=== PATIENT | male | born 1955 | race Caucasian/White ===

== ENCOUNTER 2018-04-29 14:33 | Inpatient (IN) | payer OTHER ==
[~2018-04-29] VITALS: Ht 188 cm; Wt 226.8 kg
[2018-04-29 14:36] VITALS: BP 121/78
[2018-04-29] MEDS ORDERED: LANTUS SOL100 UNIT/1 SUBQ (14:41)
[2018-04-29] MEDS ORDERED: CLARITIN10 MG PO (14:42)
[2018-04-29] MEDS ORDERED: LIPITOR10 MG PO (14:43)
[2018-04-29] MEDS ORDERED: CELEXA40 MG PO (14:44)
[2018-04-29] MEDS ORDERED: COREG25 MG PO (14:44)
[2018-04-29] MEDS ORDERED: CARDIZEM CD120 MG PO (14:46)
[2018-04-29] MEDS ORDERED: SANDIMMUNE100 MG PO (14:46)
[2018-04-29] MEDS ORDERED: NEXIUM40 MG PO (14:47)
[2018-04-29] MEDS ORDERED: ELIQUIS2.5 MG PO (14:47)
[2018-04-29] MEDS ORDERED: FLONASE 0.05%50 MCG NASAL (14:48)
[2018-04-29] MEDS ORDERED: NEURONTIN 300300 M1 PO (14:49)
[2018-04-29] MEDS ORDERED: SINGULAIR 10 MG10 M1 PO (14:50)
[2018-04-29] MEDS ORDERED: PREDNISONE 20 M20 MG PO (14:51)
[2018-04-29] MEDS ORDERED: SEREVENT DISKU50 MCG INH (14:52)
[2018-04-29] MEDS ORDERED: SYMBICORT160 MCG/4. INH (14:54)
[2018-04-29] MEDS ORDERED: FLOMAX0.4 MG PO (14:58)
[2018-04-29] MEDS ORDERED: TRAZODONE HCL50 MG PO (14:58)
[2018-04-29] MEDS ORDERED: NORCO 5-325 TA1 EACH PO (14:59)
[2018-04-29 15:11] LABS: ABSOLUTE NEUTROPHILS 7.3 thou/uL (1.4-8.2); BASOPHILS 0.5 % (0.0-2.0); EOSINOPHILS 0.2 % (0.0-3.0); HEMOGLOBIN 8.1 gm/dL (14.0-18.0); LYMPHOCYTES 4.5 % (24.0-44.0); MCH 25.9 pg (26.0-34.0); MCHC 31.2 g/dL (28.0-37.0); MONOCYTES 4.4 % (1.0-8.0); PLATELET COUNT 315 thou/uL (150-400); POLYS 90.4 % (36.0-66.0); RBC 3.13 mil/uL (4.50-6.00); RDW 18.6 % (10.5-14.5); WBC 8.1 thou/uL (4.0-11.0)
[2018-04-29 15:15] LABS: ANION GAP 4 mmol/L (7-16); BUN 15 mg/dL (7-18); CALCIUM 8.6 mg/dL (8.5-10.1); CHLORIDE 106 mmol/L (98-107); CO2 35 mmol/L (21-32); CREATININE 1.2 mg/dL (0.7-1.3); GLUCOSE 101 mg/dL (74-106); POTASSIUM 4.6 mmol/L (3.5-5.1); SODIUM 145 mmol/L (136-145)
[2018-04-29 15:23] LABS: TROPONIN-I <0.06 ng/mL (<0.06)
[2018-04-29 15:25] LABS: HCO3 28.2 mmol/L (22.0-26.0); PCO2 46.2 mmHg (35.0-45.0); PO2 76.6 mmHg (80.0-100.0); pH 7.403 (7.360-7.450); sO2 95.3 % (92.0-98.0)
[2018-04-29 17:35] VITALS: BP 226/85
--- NOTE | 2018-04-29 19:23 | NUR ---
REPORT ATTEMPTED X 2; ADVISED AT 1829 THAT BARIATRIC BED WAS REQUIRED
[2018-04-29 19:52] VITALS: BP 226/85
[2018-04-29 20:26] VITALS: BP 149/54
[2018-04-30 06:04] LABS: ABSOLUTE NEUTROPHILS 5.9 thou/uL (1.4-8.2); BASOPHILS 0.5 % (0.0-2.0); EOSINOPHILS 0.2 % (0.0-3.0); HEMOGLOBIN 7.6 gm/dL (14.0-18.0); LYMPHOCYTES 4.1 % (24.0-44.0); MCH 25.7 pg (26.0-34.0); MCHC 30.3 g/dL (28.0-37.0); MCV 84.7 fL (80.0-100.0); MONOCYTES 3.8 % (1.0-8.0); PLATELET COUNT 263 thou/uL (150-400); POLYS 91.4 % (36.0-66.0); RBC 2.95 mil/uL (4.50-6.00); RDW 18.7 % (10.5-14.5); WBC 6.5 thou/uL (4.0-11.0)
[2018-04-30 06:28] LABS: ALBUMIN 2.2 g/dL (3.4-5.0); ANION GAP 7 mmol/L (7-16); BUN 16 mg/dL (7-18); CALCIUM 8.3 mg/dL (8.5-10.1); CHLORIDE 106 mmol/L (98-107); CO2 34 mmol/L (21-32); CREATININE 1.3 mg/dL (0.7-1.3); GLUCOSE 124 mg/dL (74-106); MAGNESIUM 1.7 mg/dL (1.8-2.4); POTASSIUM 4.6 mmol/L (3.5-5.1); SGOT 14 U/L (15-37); SGPT 14 U/L (30-65); SODIUM 147 mmol/L (136-145); TOTAL BILIRUBIN 0.7 mg/dL (<0.1-1.0); TROPONIN-I <0.06 ng/mL (<0.06)
--- NOTE | 2018-04-30 07:24 | NUR ---
Received pt from ED. Pt has been having SOA for the past four days. Chest xray was done in ED show evidence of HCAP. Pt has morbid obesity. Left hand is limb but he still has sensation. Edema on both low extremities and right hand. Left forearm I.V. AOX4. He has a wound left leg lateral calf. Denies pain. No identified needs at the moment. Will continue to monitor.
[2018-04-30 07:41] LABS: HCO3 32.1 mmol/L (22.0-26.0); PCO2 56.1 mmHg (35.0-45.0); PO2 67.4 mmHg (80.0-100.0); pH 7.376 (7.360-7.450); sO2 92.6 % (92.0-98.0)
--- NOTE | 2018-04-30 07:54 | EKG ---
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 04/30/18 0753 1511 1511 Ignacio Cruz MD, FACC /EPI
--- NOTE | 2018-04-30 08:20 | NUR ---
cm consulted for dcp, cm visited with pt at bedside. he is a & o x 3, and able to make his needs know. education on transition of care, home health and post acute. " i am in rehab on [address], used to be called something else, been there for month. i was in [facility] for month, before that live with sister at home, need some assistance with dressing from my sister. use o2 at home and bipap. unable to shower, have to take sponge baths. no hh in past. currently in rehab now, have to be able to use my right arm before i can go back home."/thanh. pt in post acute at [facility] teresa bills. will cont following as needed for dc needs, pt anticipate going back to cont rehab.
[2018-04-30 09:03] LABS: % SATURATION 18 % (20-39); IRON 41 ug/dL (65-175); TIBC 229 ug/dL (250-450)
[2018-04-30 09:15] VITALS: BP 146/84
--- NOTE | 2018-04-30 13:14 | EKG ---
[address] [address] ELECTROCARDIOGRAM REPORT Name: DEX BLACK Room #: 455-P ADM IN M.R.#: [id number] Admission: 04/29/18 Attend Phys: Matthew Costa MD Discharge: Date of : 55 Report #: [id number] THIS REPORT FOR: //name// [facility] Test Date: 2018-04-30 Test Time: 07:52:40 Pat Name: DEX BLACK Department: Room: 455 P Gender: M Strategic Planning Analyst: EBONY : 1955 Requested By: Matthew Costa Order Number: [id number] MD: Trenton Moulton Measurements Intervals [place] Rate: 80 P: [place]: QRS: -68 QRSD: 110 T: 31 QT: 400 QTc: 462 Interpretive Statements Atrial fibrillation LAD, consider left anterior fascicular block Low voltage, precordial leads Abnormal R-wave progression, late transition Nonspecific T abnormalities, anterior leads No previous ECG available for comparison Electronically Signed On 04-30-2018 13:14:23 PLATEN BUILDER UP by Trenton Moulton [email or web address] <ELECTRONICALLY SIGNED> By: Trenton Moulton MD 04/30/18 1314 0752 0752 Trenton Moulton MD /EPI
--- NOTE | 2018-04-30 14:39 | 2DMMODE ---
[facility] [address] [place] [address] 2 D/M-MODE ECHOCARDIOGRAM Name: DEX BLACK Room #: 455-P ADM IN M.R.#: [id number] Admission: 04/29/18 Attend Phys: Matthew Costa MD Discharge: Date of : 55 Date of Service: 04/30/18 1438 Report #: [id number] THIS REPORT FOR: //name// APPROVED REPORT Study performed: 04/30/2018 11:31:44 EXAM: Comprehensive 2D, Doppler, and color-flow Echocardiogram Patient Location: Bedside Room #: [facility] Status: routine BSA: 3.21 HR: 87 bpm BP: 146/84 mmHg Rhythm: Atrial Fibrillation Other Information Study Quality: Fair Indications COPD CVA/TIA Diabetes Atrial Fibrillation Hypertension/HDD Echo Enhancing Agent Indication: Rule out shunt, Endocardial border delineation Agent(s) / Amount(s) Used: Agitated Saline 7 cc Optison 4 cc 2D Dimensions IVSd: 14.80 (7-11mm) LVOT Diam: 22.95 (18-24mm) LVDd: 60.02 mm PWd: 14.06 (7-11mm) Ascending Ao: 32.76 (22-36mm) LVDs: 40.67 (25-40mm) Aortic Root: 31.79 mm IVC: 35.00 mm Aortic Valve AoV Peak Robby.: 1.30 m/s AO Peak Gr.: 6.80 mmHg LVOT Max P.41 mmHg LVOT Max V: 1.05 m/s WESLEY Vmax: 3.33 cm2 Pulmonary Valve [facility] [address] [place] [address] 2 D/M-MODE ECHOCARDIOGRAM Name: DEX BLACK Room #: 455-P ADM IN .Jennifer.#: [id number] Admission: 04/29/18 Attend Phys: Matthew Costa MD Discharge: Date of : 55 Date of Service: 04/30/18 1438 Report #: [id number] PV Peak Robby.: 1.23 m/s PV Peak Gr.: 6.05 mmHg Tricuspid Valve TR Peak Robby.: 2.81 m/s TR Peak Gr.: 31.51 mmHg PA Pressure: 42.00 mmHg Left Ventricle Left ventricle is dilated. There is normal LV segmental wall motion. Moderate concentric left ventricular hypertrophy. The left ventricular systolic function is normal. The left ventricular ejection fraction is within the normal range. LVEF is 55-60%. This study is not technically sufficient to allow evaluation of the LV diastolic function due to atrial fibrillation. Right Ventricle The right ventricle is normal size. The right ventricular systolic function is normal. Atria Left atrium is dilated. Right atrium is dilated. Aortic Valve The aortic valve is not well visualized. No aortic regurgitation is present. There is no aortic valvular stenosis. Mitral Valve The mitral valve is normal in structure. Trace mitral regurgitation. No evidence of mitral valve stenosis. Tricuspid Valve The tricuspid valve is normal in structure. There is trace tricuspid regurgitation. Estimated PAP 42 mmHg. There is moderate pulmonary hypertension. Pulmonic Valve The pulmonary valve is normal in structure. There is no pulmonic valvular regurgitation. Great Vessels The aortic root is normal in size. IVC is dilated and collapses >50% with inspiration. Pericardium There is no pericardial effusion. [facility] [place] [place] [address] 2 D/M-MODE ECHOCARDIOGRAM Name: DEX BLACK Room #: 455-P ADM IN M.R.#: [id number] Admission: 04/29/18 Attend Phys: Matthew Costa MD Discharge: Date of : 55 Date of Service: 04/30/18 143 Report #: [id number] <Conclusion> The left ventricular systolic function is normal. There is normal LV segmental wall motion. Both atria are mildly dilated. The aortic valve is not well visualized. No aortic regurgitation or stenosis. The mitral valve is normal in structure. Trace mitral regurgitation. There is trace tricuspid regurgitation. Estimated pulmonary artery pressure of 42 mmHg. There is no pericardial effusion. <ELECTRONICALLY SIGNED> By: Ignacio Cruz MD, [facility] 04/30/18 1438 1438 1438 Ignacio Cruz MD, FACC /INF
[2018-04-30 14:59] VITALS: BP 141/71
--- NOTE | 2018-04-30 15:16 | NUR ---
ASSUMED CARE AT 0700. AXOX4. CALLS APPROPIRATELY. R SIDED FLACCID PRIOR TO HOSPITALIZATION. SEEN BY WOUND CARE, SEEN BY CARDIOLOGY. SEEN BY HOSPITALIST GROUP. NEW ORDERS NOTED AND CARRIED OUT. SENT MEDICAL RECORDS REQUEST TO [facility]. NO S/S ACUTE DISTRESS NOTED OR REPORTED AT THIS TIME. WILL CONT TO MONITOR FOR ANY CHANGES IN CONDITION.
--- NOTE | 2018-04-30 15:24 | NUR ---
WOUND CONSULT: PT. WAS SEEN TODAY BY DR. MAGALLON AND MYSELF. PT. HAS HEMOTOMAS TO BOTH HIS LEFT AND RIGHT LATERAL LEGS. THE LEFT LEG WAS OPEN UPON EXAMINATION BUT, DR. MAGALLON PREFORMED A I&D TO THE RIGHT LEG TODAY AT BEDSIDE. PT. TOLERATED WELL. PT. HAS HYPERKARITOSIS TO HIS PANNUS ALONG WITH BLISTERS TO HIS RIGHT HAND. RECOMMENDATIONS: SEE PLAN OF CARE. PT. AND STAFF NURSE WERE INSTRUCTED ON PLAN OF CARE.
--- NOTE | 2018-04-30 19:27 | D ---
[facility] [place] [place] [address] DISCHARGE SUMMARY Name: DEX BLACK Room #: 455-P ADM IN M.R.#: [id number] Admission: 04/29/18 Attend Phys: Matthew Costa MD Discharge: Date of : 55 Report #: [id number] THIS REPORT FOR: //name// CC: Matthew Ha REFERRING PHYSICIAN: Dr. Costa. REASON FOR REFERRAL: Dyspnea and pneumonia. HISTORY OF PRESENT ILLNESS: The patient is a 62-year-old white male who presented to the Emergency Room with progressive dyspnea. A pulmonary consultation was requested. The patient has been residing in a facility since January. He has sleep apnea along with morbid obesity and COPD. He has been weak for the last several months. He has a history of CVA with the resultant right-sided weakness. He was in his usual state of health until about 4-5 days prior to presentation he started to notice increasing dyspnea. Chest x-ray suggests mild right lower lobe infiltrates. Lung volumes are normal with cardiomegaly. Otherwise, he denies any fever, chest pain, productive cough, or hemoptysis. PAST MEDICAL HISTORY: As mentioned above, [place], on home CPAP, COPD, hypertension, morbid obesity, history of heart failure. He has been previously hospitalized at [facility], [place], and [facility]. He was hospitalized at [facility] around January of last year with respiratory failure on mechanical ventilation. Psoriasis, gastroesophageal reflux, atrial fibrillation, on anticoagulation. PAST SURGICAL HISTORY: As mentioned above. Otherwise, unremarkable. ALLERGIES: SULFA AND TRIMETHOPRIM, REACTIONS NOT SPECIFIED. MEDICATIONS: List reviewed, which includes Lantus, Claritin, Lipitor, Coreg, Celexa, Sandimmune, Cardizem, Eliquis, Nexium, Flonase, Neurontin, Singulair, prednisone 20 mg once a day, Serevent, Symbicort, Flomax, Desyrel and [place]. FAMILY HISTORY: Noncontributory. SOCIAL HISTORY: The patient has smoked for about 40 years, quit smoking more than a year ago. He drinks socially. He is . REVIEW OF SYSTEMS: As mentioned above. Notable for severe medical illness since January last year resulting in profound weakness. Otherwise, 10-point system review negative. [facility] [address] [place] [address] DISCHARGE SUMMARY Name: DEX BLACK Room #: 455-P [facility] IN M.R.#: [id number] Admission: 04/29/18 Attend Phys: Matthew Costa MD Discharge: Date of : 55 Report #: [id number] PHYSICAL EXAMINATION: GENERAL: Awake, alert, in no distress. VITAL SIGNS: Temperature is 98.5 degrees Fahrenheit, pulse is 88, respiratory rate is 20, blood pressure 146/84 mmHg, saturation 95%. HEENT: Normocephalic, atraumatic. NECK: Supple, without lymphadenopathy or thyromegaly. CHEST: Breath sounds are distant. No obvious wheezes or rales. CARDIOVASCULAR: Heart sounds are distant. No obvious murmurs or gallop. It is irregular. ABDOMEN: Obese, soft, nontender, no organomegaly or masses felt. GENITOURINARY: Deferred. RECTAL: Deferred. EXTREMITIES: 1-2+ bilateral pretibial edema with stasis dermatitis changes involving both lower extremities. NEUROLOGIC: He is awake, alert. LABORATORY DATA: Portable chest x-ray shows small lung volumes, mild right lower lobe infiltrates, cardiomegaly. The chest x-ray technique is also rotated. BNP is 8100. D-dimer is 1.8. Influenza A and B is negative. Procalcitonin level is 0.05. Echocardiogram shows normal LV function, no significant valvular heart disease, pulmonary pressure measuring 42 mmHg. Electrolytes: Sodium 147, potassium 4.6, chloride 106, CO2 of 34, BUN is 16, creatinine is 1.3. Liver enzymes are mildly abnormal. WBC is 6500, hemoglobin 7.6, platelets are normal. Albumin 2.2. Atrial blood gas revealed pH 7.37, pCO2 of 56, pO2 of 64 on 4 liters of O2. IMPRESSION: 1. Addzi-rf-jcijbuz hypercapnic hypoxic respiratory failure in this 62-year-old morbidly obese white male. Chest x-ray shows possible right lower lobe infiltrates. Pneumonia is suspected. We will need to consider nosocomial infections. He also has a history of chronic obstructive pulmonary disease along with sleep apnea, which are likely contributing to his symptoms. 2. Chronic obstructive pulmonary disease without obvious exacerbation. Continue bronchodilators. 3. Obstructive sleep apnea, on home CPAP. With presence of chronic hypercapnia, along with his morbid obesity, obesity hypoventilation is likely. Continue home CPAP. 4. Acute on chronic diastolic heart failure. 5. Morbid obesity. 6. Diabetes mellitus type 2. 7. Hypertension. 8. Peripheral neuropathy. 9. Depression. 10. Gastroesophageal reflux disease. 11. Anemia, normocytic, normochromic. No obvious source of bleeding. Likely [facility] [address] [place] [address] DISCHARGE SUMMARY Name: DEX BLACK Room #: 455-P ADM IN Roni.#: [id number] Admission: 04/29/18 Attend Phys: Matthew Costa MD Discharge: Date of : 55 Report #: [id number] due to chronic disease. 12. Atrial fibrillation, permanent, on chronic anticoagulation. RECOMMENDATION: Agree with broad spectrum antibiotics to cover for nosocomial infections. DVT and GI prophylaxis is recommended. We will recommend resuming home CPAP. I agree with diuresis. I strongly recommend if the patient is able to consider dietary modification, which would have great impact on the patient's overall health status. This was discussed in detail with the patient and his family. Thank you for this consultation. <ELECTRONICALLY SIGNED> By: Fernando Paulson MD 04/30/18 1927 1723 1747 Fernando Paulson MD /nt
[2018-04-30 20:08] VITALS: BP 155/83
[2018-05-01 03:46] VITALS: BP 154/78
[2018-05-01 05:42] LABS: HEMATOCRIT 23.6 % (42.0-52.0); HEMOGLOBIN 7.2 gm/dL (14.0-18.0)
[2018-05-01 05:50] LABS: CALCIUM 7.9 mg/dL (8.5-10.1); CREATININE 1.6 mg/dL (0.7-1.3); POTASSIUM 3.9 mmol/L (3.5-5.1)
--- NOTE | 2018-05-01 08:13 | EKG ---
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 <ELECTRONICALLY SIGNED> By: Trenton Moulton MD 05/01/18811 2 2 Trenton Moulton MD /EPI
[2018-05-01 09:07] VITALS: BP 186/69
[2018-05-01 11:24] LABS: FOLIC ACID 7.5 ng/mL (8.6-58.9); TSH 0.216 uIU/mL (0.358-3.740)
--- NOTE | 2018-05-01 14:09 | NUR ---
WOUND FOLLOW UP: PT. WAS SEEN TODAY BY DR. MAGALLON AND MYSELF. PT. WOUNDS ARE STABLE TODAY. HEMOTOMAS ARE DRAINAING WELL AND BLISTERS ARE RESOLVING. RECOMMENDATIONS: CONTINUE WITH CURRENT PLAN OF CARE. PT. AND STAFF NURSE WERE INSTRUCTED ON PLAN OF CARE.
[2018-05-01 16:04] VITALS: BP 135/66
--- NOTE | 2018-05-01 19:50 | NUR ---
PT A/OX4, COMPLIANT WITH CARES, REQUIES MAX ASSIST OF 2-3 FOR POSTIONAL CHANGE AND INCONTINENET EPISODES. CALLS APPROPRIATELY. CALL LIGHT IN REACH
[2018-05-01 20:02] VITALS: BP 143/62
--- NOTE | 2018-05-02 03:44 | NUR ---
ASSUMED CARE AT START OF SHIFT PT RESTING IN BED, REPOSITIONING EVERY 2 HOURS, CALLING TO USE URINAL WHEN NEEDED. RIGHT ARM SWOLLEN ELEVATED ON PILLOW. DISCUSSED PLAN OF CARE , VERBALIZED UNDERSTANDIG AND AGREEABLE. CONSULTING IT ARCHITECT SHOWS AFIB.
[2018-05-02 05:02] VITALS: BP 185/96
[2018-05-02 06:10] LABS: HEMATOCRIT 24.4 % (42.0-52.0); HEMOGLOBIN 7.4 gm/dL (14.0-18.0); MCH 25.4 pg (26.0-34.0); MCHC 30.4 g/dL (28.0-37.0); MCV 83.5 fL (80.0-100.0); RBC 2.92 mil/uL (4.50-6.00); RDW 18.7 % (10.5-14.5); WBC 4.5 thou/uL (4.0-11.0)
[2018-05-02 06:22] LABS: CALCIUM 7.9 mg/dL (8.5-10.1); CREATININE 1.7 mg/dL (0.7-1.3); POTASSIUM 3.8 mmol/L (3.5-5.1)
[2018-05-02 06:23] VITALS: BP 147/70
[2018-05-02 07:36] VITALS: BP 149/89
[2018-05-02 14:50] VITALS: BP 155/83
--- NOTE | 2018-05-02 15:02 | NUR ---
ASSUMED CARE AT 0700. AXOX4. CALLS APPROPRIATELY. ID SEEN PT. WOUND CARE RENDERED AT BEDSIDE IN AM. TOLERATED WELL. STILL ON IV ATB ZOSYN. BLE WOUNDS. PAIN MANAGED WITH NORCO. NO COMPLAINT AT THIS TIME. DENIES CHEST PAIN, SOB. SOA OR SEVERE PAIN. PER GI, WILL HAVE GI PROCEDURES TOMORROW AM AND PT WILL BE NPO AFTER MIDNIGHT. NO S/S ACUTE DISTRESS NOTED OR REPORTED AT THIS TIME. THIS AM, PT WAS ABLE TO URINATE IN URINAL. WILL CONT TO MONITOR FOR ANY CHANGES IN CONDITION.
--- NOTE | 2018-05-02 15:19 | NUR ---
WOUND FOLLOW UP: PT. WAS SEEN TODAY BY DR. MAGALLON AND MYSELF. PT. WOUNDS ARE STABLE AT THIS TIME. PT. WILL BE STARTED ON PULSE LAVAGE FOR THE HEMOTOMA TO THE LEFT LEG. RECOMMENDATIONS: CONTINUE WITH CURRENT PLAN OF CARE. PT. AND STAFF NURSE WERE INSTRUCTED ON PLAN OF CARE.
[2018-05-02 19:06] VITALS: BP 141/78
[2018-05-02 19:57] VITALS: BP 141/78
--- NOTE | 2018-05-02 21:39 | NUR ---
Assumed care at 1845. Pt resting in bed. Did dressing changes on both legs. Pt complaining of left leg pain. Gave him hydrocodone. Call light within reach. Bed in lowest position. Will continue to monitor.
[2018-05-03 03:07] VITALS: BP 154/71
[2018-05-03 06:50] LABS: CALCIUM 7.7 mg/dL (8.5-10.1); CREATININE 1.8 mg/dL (0.7-1.3); POTASSIUM 3.8 mmol/L (3.5-5.1)
[2018-05-03 08:00] VITALS: BP 153/87
--- NOTE | 2018-05-03 08:03 | EKG ---
[address] [address] ELECTROCARDIOGRAM REPORT Name: DEX BLACK Room #: 455-P ADM IN M.R.#: [id number] Admission: 04/29/18 Attend Phys: Matthew Costa MD Discharge: Date of : 55 Report #: [id number] THIS REPORT FOR: //name// [facility] Test Date: 2018-05-03 Test Time: 06:20:38 Pat Name: DEX BLACK Department: Room: 455 P Gender: M Relations Coordinator: EBONY : 1955 Requested By: Ignacio Cruz Order Number: [id number] MD: Trenton Moulton Measurements Intervals [place] Rate: 75 P: [place]: QRS: -72 QRSD: 105 T: 57 QT: 468 QTc: 523 Interpretive Statements Atrial fibrillation LAD, consider left anterior fascicular block Abnormal R-wave progression, late transition Nonspecific T abnrm, anterolateral leads Compared to ECG 05/01/2018 08:03:32 T-wave abnormality no longer present Electronically Signed On 05-03-2018 8:02:57 PRECISION INSTRUMENT MAKER by Trenton Moulton [email or web address] <ELECTRONICALLY SIGNED> By: Trenton Moulton MD 05/03/1802 9 9 Trenton Moulton MD /EPI
[2018-05-03 08:12] LABS: ADENOVIRUS Negative (Negative); INFLUENZA A Negative (Negative); INFLUENZA B Negative (Negative); METAPNEUMOVIRUS Negative (Negative); PARAINFLUENZA 1 Negative (Negative); PARAINFLUENZA 2 Negative (Negative); PARAINFLUENZA 3 Negative (Negative); RHINOVIRUS Negative (Negative); RSV A Negative (Negative); RSV B Negative (Negative)
--- NOTE | 2018-05-03 11:51 | NUR ---
DISCHARGE PLANNING. ANTICIPATED DISCHARGE OVER THE WEEKEND. PATIENT RESIDES AT [facility]. PLAN IS FOR PATIENT TO RETURN TO [facility] ONCE MEDICALLY READY. CLINICAL INFORMATION FAXED TO [facility], [facility] ADMISSIONS, VERIFIED RECEIVED. CALL PLACED TO [facility] TO NOTIFY OF ANTICIPATED DISCHARGE OVER THE WEEKEND. SHOULD PATIENT DISCHARGE OVER THE WEEKEND PLEASE CONTACT [facility] AT [phone] TO FACILITATE DISCHARGE TRANSPORTATION. PLEASE FAX DISCHARGE ORDERS TO FACILITY AT [phone]. FACILITY CONTACT NUMBER IS [phone]. [facility] CONTACT NUMBER IS [phone] [facility] FAX NUMBER FOR ORDERS IS [phone] [facility] CONTACT NUMBER [phone]
--- NOTE | 2018-05-03 13:35 | NUR ---
WOUND FOLLOW UP: PT. WAS SEEN TODAY BY DR. MAGALLON AND MYSELF. PT. WOUND'S ARE RESPONDING WELL TO CURRENT THERAPY. RECOMMENDATIONS: CONTINUE WITH CURRENT PLAN OF CARE. PT. AND STAFF NURSE WERE INSTRUCTED ON PLAN OF CARE.
[2018-05-03 16:00] VITALS: BP 153/74
--- NOTE | 2018-05-03 18:12 | NUR ---
ASSUMED CARE OF PT 0700.A/OX4, PAIN MANAGED WITH MEDICATION, NO BARIUM SWALLOW OR UPPER GI DONE TODAY - GI PHYSICIAN REVIEW GI PLANS, WOUND CARES COMPLETED. BM TODAY. PT REQUIRES MAX ASSIST AND 3-4 PERSON FOR REPOSITONING AND CARES. CALLS APPORPRIATELY. CALL LIGHT IN REACH.
--- NOTE | 2018-05-03 18:29 | NUR ---
ASSUMED CARE OF PT AT 0700. PAIN MANAGED WITH MEDICATIONS, WOUNDS CARE GIVEN, BM TODAY. REQUIES MAX ASSIST OF 3-4 FOR CARES. NO BARRIUM SWALLOW OR SCOPE, PHYSICIAN FROM GI CONSULTED WITH PT REGARDING GI PLANS. CALLS APPROPRIATELY.,
--- NOTE | 2018-05-03 18:30 | P ---
[facility] [place] [address] [place] [address] PROCEDURE REPORT Name: DEX BLACK Room #: 455-P ADM IN M.R.#: [id number] Admission: 04/29/18 Attend Phys: Matthew Costa MD Discharge: Date of : 55 Report #: [id number] THIS REPORT FOR: //name// CC: Matthew Costa Robinson Akkulugari DATE OF SERVICE: 04/30/2018 PROCEDURE PERFORMED: Incision and drainage and evacuation of subcutaneous abscess, right leg. PREPROCEDURE DIAGNOSIS: Subcutaneous hematoma, right leg. POSTPROCEDURE DIAGNOSIS: Subcutaneous hematoma, right leg. PROCEDURE PERFORMED: Incision and drainage of hematoma. DESCRIPTION OF PROCEDURE: The patient has given verbal consent at the bedside. stayed at the bedside the whole time. I have identified the site with the patient. Time-out was taken. Following this, the area was prepped and draped in usual sterile fashion, anesthetized with 1% lidocaine with epinephrine. Once adequate anesthesia was achieved, a #15 bladed scalpel was used to incise across the hematoma and a moderate amount of retained hematoma was evacuated. Estimated blood loss approximately 3 mL. Pain associated with procedure would be 1 on a scale of 1-10. The patient tolerated the procedure well with no complications. Wound was packed with iodoform gauze and dressed with Kerlix and Juan Luis wrap. <ELECTRONICALLY SIGNED> By: Sylvester Peters MD 05/03/18 1830 1530 1824 Sylvester Peters MD /genevieve
--- NOTE | 2018-05-03 18:30 | HC ---
[facility] [place] [address] CONSULTATION Name: DEX BLACK Room #: 455-P ADM IN M.R.#: [id number] Admission: 04/29/18 Attend Phys: Matthew Costa MD Discharge: Date of : 55 Report #: [id number] THIS REPORT FOR: //name// CC: Matthew Luongyam Akkulugari DATE OF SERVICE: 04/30/2018 CHIEF COMPLAINT: Wounds to the lower extremities. HISTORY OF PRESENT ILLNESS: This is a 62-year-old white male patient with a history of morbid obesity, who was admitted to the hospital with the chief complaint of shortness of breath. He was felt to have acute on chronic diastolic heart failure and a lower respiratory tract infection. He was noted to have redness and some drainage from his lower extremities. He apparently has had a subcutaneous hematoma involving his left leg and may have had an incision and drainage procedure. It is very much unclear as to when he may have developed a hematoma and when or where the incision and drainage procedure was performed. The patient denies significant pain associated with that, but states he is very short of breath when changing positions in bed. PAST MEDICAL HISTORY: Per his medical record, history of permanent atrial fibrillation, morbid obesity, hypertension, dyslipidemia, diabetes mellitus, psoriasis, and an oxygen dependent lung disease. SOCIAL HISTORY: The patient is a [id number]-rimx smoker. He does not smoke currently. Denies significant alcohol use. FAMILY HISTORY: Positive for heart failure in his mother. ALLERGIES: BACTRIM. MEDICATIONS: Include Lantus insulin, atorvastatin, carvedilol, citalopram, Sandimmune, diltiazem, apixaban, Nexium, prednisone, Serevent Diskus, Symbicort, Flomax. REVIEW OF SYSTEMS: CONSTITUTIONAL: The patient denies fever, chills, or weight loss. NEUROLOGICAL: The patient does have focal weakness of his right arm from the elbow to the wrist and hand area. He states this developed 1 month ago after supposedly having a stroke. EYES: The patient denies visual changes, redness or drainage. ENT: The patient denies earache, nasal drainage, or sore throat. CARDIOVASCULAR: The patient denies chest pain, palpitation, or diaphoresis. PULMONARY: The patient does complain of shortness of breath and some cough. Denies hemoptysis. [address] [place] [address] CONSULTATION Name: DEX BLACK Room #: 455-P ADM IN M.R.#: [id number] Admission: 04/29/18 Attend Phys: Matthew Costa MD Discharge: Date of : 55 Report #: [id number] GASTROINTESTINAL: The patient denies nausea, vomiting, diarrhea or abdominal pain. ORTHOPEDIC: The patient complains of pain and swelling of both lower extremities. Other systems in a 14-point review of systems are negative. PHYSICAL EXAMINATION: VITAL SIGNS: At this time include pulse rate of 82, respiratory rate of 18, blood pressure 141/71, temperature 98.5. GENERAL: This is a morbidly obese male patient who appears to be short of breath. No other distress. HEENT: Head normocephalic. Nose and throat are clear. NECK: Supple. LUNGS: Diminished. HEART: Irregular without obvious murmur. Heart sounds are a bit distant. ABDOMEN: Morbidly obese. There is a significant pannus with some hyperkeratosis noted, but no open ulceration. GENITOURINARY: Shows some scrotal edema. No erythema or evidence of breakdown. EXTREMITIES: Lower extremities demonstrate palpable, but diminished distal pulses. He has a large what appears to be surgical wound of the left lower leg that appears to have been a large hematoma that was incised and drained. There is still a large amount of retained clot that I have removed manually. There is also a small subcutaneous hematoma to the right lower leg. I have performed an incision and drainage procedure at the bedside with the patient's verbal permission. Please see separate procedure note for those details. NEUROLOGIC: The patient is alert, does move all 4 extremities. He does not have use of his right hand and forearm. LABORATORY DATA: Sodium 147, potassium 4.6, chloride 106, CO2 34, BUN 16, creatinine 1.3, glucose 124. Albumin is 2.2, total protein 6.0. ProBNP is 7079. White blood cell count of 6.5 with hemoglobin of 7.6, hematocrit 25.0. Arterial blood gas, pH 7.37, pCO2 56, pO2 of 67. CLINICAL IMPRESSION: 1. Subcutaneous hematomas, bilateral lower extremities, left greater than right. 2. Incision and drainage of right leg subcutaneous hematoma performed at bedside today. 3. Super morbid obesity. 4. Permanent atrial fibrillation. 5. Dyslipidemia. 6. Diabetes mellitus. 7. Oxygen dependent lung disease, severe obstructive sleep apnea, on BiPAP. RECOMMENDATIONS: At this point in time, we will look for additional records from [facility] and possibly from [facility]. We will recommend a [facility] [address] [place] [address] CONSULTATION Name: DEX BLACK Room #: 455-P ADM IN M.Jennifer.#: [id number] Admission: 04/29/18 Attend Phys: Matthew Costa MD Discharge: Date of : 55 Report #: [id number] saline moist gauze dressing to the left leg twice daily in order to better remove the remaining retained hematoma. We could consider a possible wound VAC down the line to help with closure of this very large tissue defect. The right leg, we will pack with iodoform gauze to be changed once daily. We will recommend a bariatric low air loss mattress. He will need q. 2 hours turning and repositioning. Recommend prophylactic use of a moisture barrier cream to the sacral gluteal region. All questions have been answered. The patient is agreeable with current plan of care. I appreciate being asked to see him in consultation. <ELECTRONICALLY SIGNED> By: Sylvester Peters MD 05/03/18 1830 1525 1818 Sylvester Peters MD /nt
--- NOTE | 2018-05-04 03:13 | NUR ---
PT UP MOST OF THE NIGHT PT AMBULATED HALLWAYS FOR 10 MIN PT USED CALL LIGHT EFFECTIVELY NO ISSUES OVERNIGHT.
--- NOTE | 2018-05-04 03:15 | NUR ---
PT SLEPT ON AND OFF PT USED CALL LIGHT EFFECTIVELY VITAL SIGNS STABLE PT USED CALL LIGHT EFFECTIVELY.
[2018-05-04 04:45] LABS: HEMATOCRIT 26.1 % (42.0-52.0); HEMOGLOBIN 8.1 gm/dL (14.0-18.0); MCH 25.9 pg (26.0-34.0); MCHC 30.9 g/dL (28.0-37.0); MCV 83.9 fL (80.0-100.0); RBC 3.11 mil/uL (4.50-6.00); RDW 18.3 % (10.5-14.5); WBC 6.6 thou/uL (4.0-11.0)
[2018-05-04 05:13] VITALS: BP 165/84
[2018-05-04 07:23] VITALS: BP 123/66
--- NOTE | 2018-05-04 16:35 | NUR ---
A/OX4, PAIN AND NAUSEA MANAGED WITH MEDICATIONS, EXTERNAL CATHETER FOR INCONTINENCE, MAX ASSIST OF 4 REPOSTIONING. UNTILIZED SECURITY ASSIST REPOSTIONING. WOUND CARE PROVIDED. ABLE TO MAKE NEEDS KNOWN. CALL LIGHT IN REACH.
[2018-05-04 17:18] VITALS: BP 148/65
[2018-05-04 19:10] VITALS: BP 155/87
[2018-05-05 03:56] VITALS: BP 134/79
[2018-05-05 08:00] VITALS: BP 150/72
[2018-05-05 12:09] VITALS: BP 140/75
--- NOTE | 2018-05-05 17:13 | NUR ---
ASSUMED CARE OF PT @ 0700. A&O X4. Pleasant & Cooperative. O2 @ 4L NC maintained. Telementry maintained. Wound care provided. Turned Q 2hrs or more frequently with max assist of 4 for repositioning. External male catheter placed d/t frequent incontinence, however; was not able to be maintained and removed. notified. Freq. pericare completed to help maintain skin integrity Pt. able to make needs known. Call light in reach. Will continue to monitor pt. throughout shift (1899).
[2018-05-05 19:19] VITALS: BP 148/75
[2018-05-06 03:47] VITALS: BP 150/81
[2018-05-06 08:15] VITALS: BP 147/48
--- NOTE | 2018-05-06 11:05 | NUR ---
TOWARDS POC PT A/O X4, VSS, AFEBRILE. PAIN NOTED ON BLE MANEGD BY POSITIONING. NO CONCERNS VOICED AT THIS TIME. WILL CONTINUE TO MONITOR.
[2018-05-06 15:39] VITALS: BP 128/76
--- NOTE | 2018-05-06 17:13 | NUR ---
CARE TEAM IS INDICATING POSSIBLE DISCHARGE BACK TO [facility] TOMORROW. CM TO FOLLOW INDICATED WITH DC PLANNING.
[2018-05-06 19:54] VITALS: BP 174/72
[2018-05-07 03:00] VITALS: BP 142/65
--- NOTE | 2018-05-07 04:00 | NUR ---
Pt. rested quietly at intervals during the night when checked on during frequent rounds. He offers no c/o pain. Incontinent of urine and barbara care given.
[2018-05-07 07:48] VITALS: BP 135/68
--- NOTE | 2018-05-07 10:31 | NUR ---
dp faxed updates to [facility], patient will dc today, dp will watch for dc papers. DP sent text to [facility] to let them know to expect paperwork and of anticipated dc today.
--- NOTE | 2018-05-07 13:54 | NUR ---
Nutrition: pt admitted with HCAP and seen due to LOS and BMI 64, extreme class 3 obesity. Hyperglycemia with BG 310-[address] follows for mild dysphagia not requiring modified consistency diet. Pt eats well on regular diet, standard meals. Will add carb controlled-discussed with pt. Pt will D[facility] back [facility] soon. Place as low risk.
[2018-05-07 14:05] VITALS: BP 116/60
--- NOTE | 2018-05-07 14:06 | NUR ---
WOUND FOLLOW UP: PT. WAS SEEN TODAY BY DR. MAGALLON AND MYSELF. PT. WOUNDS ARE HEALING WELL. RECOMMENDATIONS: CONTINUE WITH CURRENT PLAN OF CARE. PT. AND STAFF NURSE WERE INSTRUCTED ON PLAN OF CARE.
--- NOTE | 2018-05-07 14:59 | NUR ---
CARE TEAM INDICATED THAT PT ISN'T MEDICALLY STABLE TO DISHCARGE TO [facility] TODAY. UPDATES WERE SENT TO THE FACILITY. CM TO FOLLOW INDICATED WITH DC PLANNING.
--- NOTE | 2018-05-07 18:53 | NUR ---
TOWARDS POC PT A/O X4, VSS, AFEBRILE. PT HAD 3 BM. WOUND CARE AND DRESSING DONE. WILL CONTINUE TO MONITOR.
[2018-05-07 19:52] VITALS: BP 134/69
[2018-05-08 03:51] VITALS: BP 130/65
[2018-05-08 05:55] LABS: HEMATOCRIT 27.4 % (42.0-52.0); HEMOGLOBIN 8.6 gm/dL (14.0-18.0); MCH 26.6 pg (26.0-34.0); MCHC 31.4 g/dL (28.0-37.0); MCV 84.7 fL (80.0-100.0); RBC 3.24 mil/uL (4.50-6.00); RDW 18.9 % (10.5-14.5); WBC 10.3 thou/uL (4.0-11.0)
[2018-05-08 06:01] LABS: CALCIUM 7.9 mg/dL (8.5-10.1); CREATININE 2.1 mg/dL (0.7-1.3); POTASSIUM 4.1 mmol/L (3.5-5.1)
[2018-05-08 07:17] VITALS: BP 131/73
--- NOTE | 2018-05-08 07:22 | NUR ---
Received pt. on 4L/NC then he slept well with CPAP on all night.He does get short of breath with exertion. He has been repositioned. Incontinent of bladder and bowel this am. Bilateral arm elevated with pillows. Making progress towards care plan goals.
--- NOTE | 2018-05-08 09:58 | NUR ---
WOUND FOLLOW UP: PT. WAS SEEN TODAY BY DR. PAUL AND MYSELF. PT. WOUNDS ARE RESPONDING WELL TO CURRENT THERAPY. PT. HEMOTOMAS ARE HEALING WELL. RECOMMENDATIONS: CONTINUE WITH CURRENT PLAN OF CARE. PT. AND STAFF NURSE WERE INSTRUCTED ON PLAN OF CARE.
--- NOTE | 2018-05-08 12:14 | NUR ---
A/OX4, PAIN MANAGED WITH MEDICATIONS, WOUND CARE PROVIDED BY [facility], C/O DIFFICULTY TO SWALLOW, NEW ORDERS TO TREAT THRUSH, REQUIRES MAX ASSISTANCE WITH REPOSITIONING. INCONTIENT OF BLADDER/BOWEL. BM 05/07/18 CALLS APPROPRIATELY. PLANS TO DC TODAY OR TOMORROW. CALL LIGHT IN REACH.
[2018-05-08 15:15] VITALS: BP 132/70
--- NOTE | 2018-05-08 16:03 | NUR ---
CARE TEAM IS ANTICIPATING PROBABLE DISCHARGE BACK TO [facility] TOMORROW. DC BOOKMAKER'S CLERK NOTIFIED FACILITY. CM TO FOLLOW INDICATED WITH DC PLANNING.
[2018-05-08 20:43] VITALS: BP 146/62
--- NOTE | 2018-05-09 03:22 | NUR ---
Assumed care at 1845. Pt resting in bed. Denies chest pain. Performed dressing changes on both legs. On 4L NC. Pt is running AFIB w/BBB on Tele. His ACHS. No identified needs at the moment. Will continue to monitor.
[2018-05-09 03:58] VITALS: BP 128/70
[2018-05-09 05:58] LABS: CALCIUM 7.7 mg/dL (8.5-10.1); POTASSIUM 4.4 mmol/L (3.5-5.1)
[2018-05-09 07:30] VITALS: BP 136/64
[2018-05-09 09:06] VITALS: BP 136/64
[2018-05-09] MEDS ORDERED: FLUCONAZOL40 MG/1 ML PO (10:55)
[2018-05-09] MEDS ORDERED: LANTUS100 UNIT/M SUBQ (10:56)
[2018-05-09] MEDS ORDERED: NORCO 5-325 TA1 EACH PO (10:56)
[2018-05-09] MEDS ORDERED: CEFUROXIME500 MG PO (10:57)
--- NOTE | 2018-05-09 11:51 | NUR ---
WOUND FOLLOW UP: PT. WAS SEEN TODAY BY DR. MAGALLON AND MYSELF. PT. WOUNDS ARE CLINICALLY BETTER AT THIS TIME. PT. IS RESPONDING WELL TO CURRENT THERAPY AND PT. IS IN GOOD SPIRITS TODAY. RECOMMENDATIONS: CONTINUE WITH CURRENT PLAN OF CARE. PT. AND STAFF NURSE WERE INSTRUCTED ON PLAN OF CARE.
--- NOTE | 2018-05-09 12:34 | HC ---
[facility] [place] [address] CONSULTATION Name: DEX BLACK Room #: 455-P ADM IN M.R.#: [id number] Admission: 04/29/18 Attend Phys: Matthew Costa MD Discharge: Date of : 55 Report #: [id number] THIS REPORT FOR: //name// CC: Matthew Bowers Akkulugari REASON FOR CONSULTATION: Shortness of breath. HISTORY OF PRESENT ILLNESS: The patient is a 62-year-old gentleman with morbid obesity, COPD and severe sleep apnea. He is on home oxygen. He has history of recurrent pneumonia, permanent atrial fibrillation and diastolic heart failure. Now presents with increasing shortness of breath over the past 3-4 days. Chest x-ray suggested left lower lobe opacities, possibly related to pneumonia. He has had mild lower extremity edema. He has been hospitalized at a variety of hospitals in [facility], most recently at [facility] following which he moved to a rehab center. While at [facility], it sounds as if he had a cardioembolic stroke related to his atrial fibrillation. He has been maintained on Eliquis. He denies chest pain or pressure. He denies a prior myocardial infarction. He had been seeing a payroll and benefits assistant at [facility], but nothing recently. MEDICATIONS: Include insulin, Lantus 60 units daily, atorvastatin 10 mg daily, carvedilol 25 mg twice daily, citalopram 40 mg daily, Sandimmune 200 mg twice daily, diltiazem CD 120 mg daily, apixaban 2.5 mg twice daily, Nexium 40 mg daily, prednisone 20 mg daily, Serevent Diskus, Symbicort inhaler, Flomax 0.4 mg twice daily and hydrocodone. ALLERGIES: Include BACTRIM. PAST MEDICAL HISTORY: His past history and medical records have been reviewed and include a history of permanent atrial fibrillation, morbid obesity, hypertension, dyslipidemia, diabetes, psoriasis for which he takes Sandimmune, oxygen-dependent lung disease. SOCIAL HISTORY: He is a [id number]-jjmq smoker, not currently smoking. FAMILY HISTORY: Notable for mother who had heart failure. REVIEW OF SYSTEMS: All systems negative except as that noted above. PHYSICAL EXAMINATION: GENERAL: Reveals a morbidly obese gentleman who is alert, in no distress. VITAL SIGNS: Blood pressure is 149/54, heart rate of 82 and regular, temperature is 99.0 degrees, 6 feet 2 inches tall, weighs 500 pounds. HEENT: There are neither xanthelasma, subcutaneous xanthomata, oral mucosal or digital cyanosis or kyphoscoliosis present. CHEST: Reveals equal but distant breath sounds. CARDIAC: An irregularly irregular rhythm with normal S1, S2. [facility] [address] [place] [address] CONSULTATION Name: DEX BLACK Room #: 455-P ADM IN M.R.#: [id number] Admission: 04/29/18 Attend Phys: Matthew Costa MD Discharge: Date of : 55 Report #: [id number] ABDOMEN: Soft, obese and nontender. EXTREMITIES: Reveal 1+ pedal edema. Radial pulses are 2+. NEUROLOGIC: He is alert with right-sided upper extremity weakness. LABORATORY DATA: Sodium 147, potassium 4.6, creatinine 1.3. ProBNP of 7079. Troponin 0. Magnesium 1.7. White count 6.5, hemoglobin 7.6, hematocrit 25, platelet count 263. Chest x-ray demonstrates interstitial edema, bilateral lower lobe consolidation. IMPRESSION: 1. Probable nujyi-ew-ktdrrvp diastolic heart failure. 2. Lower respiratory tract infection. 3. Permanent atrial fibrillation. 4. Severe oxygen-dependent lung disease. 5. Probable cardioembolic stroke. 6. Anemia. 7. Diabetes. 8. Dyslipidemia. RECOMMENDATIONS: 1. Gentle diuretic therapy. 2. Echocardiogram with Doppler. 3. Pulmonary and Infectious Disease consultations. Thank you for asking me to participate in the patient's care. <ELECTRONICALLY SIGNED> By: Ignacio Cruz MD, FACC 05/09/18 1234 0900 0955 Ignacio Cruz MD, FACC /nt
--- NOTE | 2018-05-09 14:03 | NUR ---
DISCHARGE ORDERS RECEIVED. PATIENT DISCHARGING TO [facility]. CHART COPIED PER IMMIGRATION PARALEGAL. ORDERS FAXED TO [facility], ADMISSIONS, VERIFIED RECEIVED. [facility] STERILIZATION TECH TO TRANSPORT PATIENT, 1630 HOURS STRETCHER VAN. VOICE AIDE LEFT FOR SISTER IGOR TO NOTIFY. UNIT RN NOTIFIED AND CONTACT NUMBER PROVIDED FOR REPORT. UNIT CM/SW AWARE.
--- NOTE | 2018-05-09 16:49 | NUR ---
DIS PT IS FOR DC'D, TODAY. HEART MONITOR AND IV DC'D. DC ENVELOPE WITH MED SCRIPTS PROVIDED TO THE TRANSPORT. REPORT CALLED APPROPRIATELY.
== END 2018-05-09 17:22 | DRG 291 ==
LOC: ER 14:33 → EROBS 17:16 → 4W 17:16
PROVIDERS: Emergency Medicine; Internal Medicine; Internal Medicine Gastroenterology; Internal Medicine Pulmonary Disease; Nurse Practitioner; Specialist; ADMIT Internal Medicine
DX: I13.0 Hypertensive heart and chronic kidney disease with heart failure and stage 1 through stage 4 chronic kidney disease, or unspecified chronic kidney disease (principal); J18.9 Pneumonia, unspecified organism; J96.21 Acute and chronic respiratory failure with hypoxia; J96.22 Acute and chronic respiratory failure with hypercapnia; E43 Unspecified severe protein-calorie malnutrition; I50.33 Acute on chronic diastolic (congestive) heart failure; D68.59 Other primary thrombophilia; J44.1 Chronic obstructive pulmonary disease with (acute) exacerbation; N17.9 Acute kidney failure, unspecified; Z68.44 Body mass index [BMI] 60.0-69.9, adult; I69.351 Hemiplegia and hemiparesis following cerebral infarction affecting right dominant side; J44.0 Chronic obstructive pulmonary disease with (acute) lower respiratory infection; E66.01 Morbid (severe) obesity due to excess calories; I48.2 Chronic atrial fibrillation; J22 Unspecified acute lower respiratory infection; E78.5 Hyperlipidemia, unspecified; S80.12XA Contusion of left lower leg, initial encounter; S80.11XA Contusion of right lower leg, initial encounter; G47.33 Obstructive sleep apnea (adult) (pediatric); F32.9 Major depressive disorder, single episode, unspecified; E11.42 Type 2 diabetes mellitus with diabetic polyneuropathy; E87.70 Fluid overload, unspecified; I16.0 Hypertensive urgency; K46.9 Unspecified abdominal hernia without obstruction or gangrene; D63.8 Anemia in other chronic diseases classified elsewhere; N18.9 Chronic kidney disease, unspecified; E11.22 Type 2 diabetes mellitus with diabetic chronic kidney disease; B37.9 Candidiasis, unspecified; K21.9 Gastro-esophageal reflux disease without esophagitis; D50.9 Iron deficiency anemia, unspecified; Z83.71 Family history of colonic polyps; Z79.52 Long term (current) use of systemic steroids; Z88.2 Allergy status to sulfonamides; Z88.8 Allergy status to other drugs, medicaments and biological substances; Z82.49 Family history of ischemic heart disease and other diseases of the circulatory system; Z99.81 Dependence on supplemental oxygen; Z79.01 Long term (current) use of anticoagulants; X58.XXXA Exposure to other specified factors, initial encounter; Y93.89 Activity, other specified; Y92.89 Other specified places as the place of occurrence of the external cause; Y99.8 Other external cause status
CPT/HCPCS: 10045

== ENCOUNTER 2018-05-12 19:50 | Inpatient (IN) | payer OTHER ==
[~2018-05-12] VITALS: Ht 188 cm; Wt 221.7 kg
[2018-05-12 19:50] VITALS: BP 194/134
[~2018-05-12 19:50] MED LIST: CARDIZEM CD120 MG PO; CEFUROXIME500 MG PO; CELEXA40 MG PO; CLARITIN10 MG PO; COREG25 MG PO; ELIQUIS2.5 MG PO; FLOMAX0.4 MG PO; FLONASE 0.05%50 MCG NASAL; FLUCONAZOL40 MG/1 ML PO; LANTUS SOL100 UNIT/1 SUBQ; LANTUS100 UNIT/M SUBQ; LIPITOR10 MG PO; NEURONTIN 300300 M1 PO; NEXIUM40 MG PO; NORCO 5-325 TA1 EACH PO; PREDNISONE 20 M20 MG PO; SANDIMMUNE100 MG PO; SEREVENT DISKU50 MCG INH; SINGULAIR 10 MG10 M1 PO; SYMBICORT160 MCG/4. INH; TRAZODONE HCL50 MG PO
[2018-05-12 21:10] LABS: HEMATOCRIT 32.7 % (42.0-52.0); HEMOGLOBIN 10.1 gm/dL (14.0-18.0); MCH 27.3 pg (26.0-34.0); MCHC 30.8 g/dL (28.0-37.0); MCV 88.9 fL (80.0-100.0); RBC 3.68 mil/uL (4.50-6.00); RDW 22.3 % (10.5-14.5)
[2018-05-12 21:25] LABS: ANION GAP 8 mmol/L (7-16); BUN 41 mg/dL (7-18); CALCIUM 8.2 mg/dL (8.5-10.1); CHLORIDE 108 mmol/L (98-107); CO2 31 mmol/L (21-32); CREATININE 1.6 mg/dL (0.7-1.3); GLUCOSE 145 mg/dL (74-106); POTASSIUM 3.3 mmol/L (3.5-5.1); SODIUM 147 mmol/L (136-145)
[2018-05-12 21:34] LABS: TROPONIN-I <0.06 ng/mL (<0.06)
[2018-05-12 22:53] VITALS: BP 171/100
[2018-05-12 23:10] VITALS: BP 171/89
[2018-05-13] MEDS ORDERED: HUMALOG100 UNIT/1 SUBQ (02:49)
--- NOTE | 2018-05-13 03:02 | NUR ---
PT ADMITED FROM ER AROUND 2300. FROM [facility]. VSS, ASSESSMENT CHARTED. A&OX4. PT DENIES ANY PAIN. AFIB RVR, NOW COTROLLED 80'S, CARDIZEM GTT PER EMAR. HCAP, ABX PER EMAR. SOB WITH EXCERTION, BIPAP PER RT. POTASSIUM LOW, REPLACE PER ORDERS. CDIF+, PRECATIONS IN PLACE. WOUNDS ON BILATERAL CALFS, PICTURES IN CHART. WOUND CARE, CARDIO, PULM CONSULTED. MED RECONCIL COMPLETED ,PT UNABLE TO SIGN DOCUMENTS AT THIS TIME. ALTHOUGH NURSES AND RT EDUCATED PT, PT REFUSED TO LET US TURN HIM, PARTIAL BED BATH GIVEN AND WOUNDS CLEANED WITH SALINE. PLAN FOR LABS THIS AM. WILL CONTINUE TO MONITOR AND WITH POC.
[2018-05-13 03:39] VITALS: BP 153/82
[2018-05-13 06:54] LABS: BE(vivo) 0.4 mmol/L (-2 to +3); HCO3 24.5 mmol/L (22.0-26.0); PCO2 37.4 mmHg (35.0-45.0); PO2 91.3 mmHg (80.0-100.0); pH 7.434 (7.360-7.450); sO2 97.2 % (92.0-98.0)
[2018-05-13 08:05] VITALS: BP 145/66
--- NOTE | 2018-05-13 09:20 | EKG ---
[place] [address] [facility] [employer] [place] [address] ELECTROCARDIOGRAM REPORT Name: DEX BLACK Room #: 209-P ADM IN M.R.#: [id number] Admission: 05/12/18 Attend Phys: Geno Kent Discharge: Date of : 55 Report #: [id number] THIS REPORT FOR: //name// [facility] ED Test Date: 2018-05-12 Test Time: 20:04:40 Pat Name: DEX BLACK Department: Room: 209 Gender: M Completions Engineer: Alice AVALOS : 1955 Requested By: Cj Mcguire Order Number: [id number] MD: Ignacio Cruz Measurements Intervals Drummond Rate: 126 P: OR: QRS: -55 QRSD: 109 T: 29 QT: 341 QTc: 494 Interpretive Statements Atrial fibrillation Left axis deviation Low voltage, precordial leads Poor R wave progression Compared to ECG 05/03/2018 06:20:38 Heart rate has increased Electronically Signed On 05-13-2018 9:20:14 [employer] by Ignacio Cruz [email or web address] <ELECTRONICALLY SIGNED> By: Ignacio Cruz MD, [facility] 05/13/18919 03 03 Ignacio Cruz MD, FAC /EPI
--- NOTE | 2018-05-13 10:37 | NUR ---
UNABLE TO COMPLETE SEPSIS SCREEN AT THIS TIME ATTENDING HAS NOT ORDERED AM LABS WILL INQUIRE DURING ROUNDING.
[2018-05-13 12:15] VITALS: BP 139/98
--- NOTE | 2018-05-13 14:05 | NUR ---
Pt with high nutrition screening for unintentional wt loss and poor appetite. Pt with extreme class III obesity, BMI of 62. Has bilateral lower extremity wounds/hematoma followed by wound care. Attempted to visit with pt, however several staff members issues in room. Currently npo with orders for ST to eval swallowing, ? aspiration. Will follow up again 05/15 and assess further and implement necessary nutrition interventions if needed
--- NOTE | 2018-05-13 14:33 | NUR ---
WOUND CONSULT: PT. WAS SEEN TODAY BY DR. MAGALLON AND MYSELF. PT. IS WELL KNOWN TO THE WOUND CARE TEAM. PT. HAS HEMOTOMAS TO HIS BILATERAL CALFS. WOUND BEDS TODAY ARE HEALTHY IN APPEARANCE AND FREE OF SIGNS OR SYMPTOMS OF INFECTION. RECOMMENDATIONS: OPTIFOAM AG TO LEFT CALF, IODOFOAM PACKING TO RIGHT CALF, COMPLETE CARES DAILY AND PRN. PT. AND STAFF NURSE WERE INSTRUCTED ON PLAN OF CARE.
--- NOTE | 2018-05-13 15:18 | NUR ---
PT PLACED IN BARIATRIC BED.
[2018-05-13 16:15] VITALS: BP 142/84
--- NOTE | 2018-05-13 16:24 | NUR ---
MET WITH PATIENT WHO ADMITS WITH PNA. PATIENT WITH RECENT DC FROM [facility] TO [facility] WERE HE HAS BEEN FOR REHAB APPROX A MONTH 04/24. PATIENT HAS SISTER EMERGENCY CONTACT. GAVE INFORMATION FOR [facility] DIRECTIVES. PLAN FOR RETURN TO [facility]. PLAN TO UPDATE FACILITY.
--- NOTE | 2018-05-13 18:45 | NUR ---
PT WOUNDS DRESSED BY WOUND CARE TEAM. PT PLACED ON BARRIATRIC BED HOWEVER PT REFUSES TO ALLOW STAFF TO TURN HIM TO SEE COCYX AREA. SWALLOW EVALUATION COMPLETED. WILL CONTINUE TO ASSESS.
[2018-05-13 19:19] VITALS: BP 128/66
--- NOTE | 2018-05-14 02:14 | NUR ---
ASSUMED CARE 1899. VSS. AFIB CONTROLED. ASSESSMENT CHARTED. PT DENIES PAIN OR CONCERNS. SISTER BROUGHT PT HOME BIPAP AM SHIFT, TOLERATING DURING NIGHT. BARIATRIC BED IN PLACE. PT AGAIN REFUSES TO LET US TURN HIM TO CHECK BUTTOCK OR CLEAN, WILL ALLOW TO CLEAN FRONT. PT WANTS TO URINATE PER URINAL, OFFERED SEVERAL TIMES, DENIED NEEDING TO URINATE THIS SHIFT. WOUND CARE DRESSED LE WOUNDS DURNING AM, CDI THIS SHIFT. PO CARDIZEM. ABX PER EMAR. CRITICAL CATY, ASSISTED LIVING ASSISTANT AND PHARM NOTIFIED. 2300 [place]O D/C PER PHARMACY, WILL CALL WHEN REDOSED. PLAN FOR LABS THIS AM. WILL CONTINUE TO MONITOR AND WITH POC.
[2018-05-14 03:47] VITALS: BP 157/84
[2018-05-14 04:40] LABS: CALCIUM 7.8 mg/dL (8.5-10.1); CREATININE 1.8 mg/dL (0.7-1.3); PHOSPHORUS 3.5 mg/dL (2.5-4.9); POTASSIUM 3.9 mmol/L (3.5-5.1)
[2018-05-14 04:44] LABS: HEMATOCRIT 28.4 % (42.0-52.0); HEMOGLOBIN 8.7 gm/dL (14.0-18.0); MCH 27.3 pg (26.0-34.0); MCHC 30.8 g/dL (28.0-37.0); MCV 88.8 fL (80.0-100.0); RBC 3.2 mil/uL (4.50-6.00); RDW 22.2 % (10.5-14.5); WBC 9.6 thou/uL (4.0-11.0)
[2018-05-14 08:10] VITALS: BP 151/93
--- NOTE | 2018-05-14 09:28 | NUR ---
Followup: ST has assessed and pt required modified diet of puree, nectar thick liquids. Class III extreme obesity, BMI 62, bilateral lower extremity wounds/hematoma, followed by wound care. Protein needs are increased-pt will receive an ensure pudding on breakfast tray and will order 2 packets beneprotein on lunch/dinner meal. Otherwise low nutrition risk with appropriate nutrition interventions in place.
--- NOTE | 2018-05-14 11:45 | NUR ---
WOUND FOLLOW UP: PT. WAS SEEN TODAY BY DR. MAGALLON AND MYSELF. PT. WOUNDS ARE STABLE AT THIS TIME. RECOMMENDATIONS: CONTINUE WITH CURRENT PLAN OF CARE. PT. AND STAFF NURSE WERE INSTRUCTED ON PLAN OF CARE.
--- NOTE | 2018-05-14 11:51 | HC ---
[facility] [address] [place] [address] CONSULTATION Name: DEX BLACK Room #: 209-P ADM IN M.R.#: [id number] Admission: 05/12/18 Attend Phys: Geno Kent Discharge: Date of : 55 Report #: [id number] THIS REPORT FOR: //name// CC: Geno Nievesm Akkulugari DATE OF SERVICE: 05/13/2018 INFECTIOUS DISEASE CONSULTATION ATTENDING PHYSICIAN: Geno Kent MD. REASON FOR CONSULTATION: Pneumonia, left leg wound. HISTORY OF PRESENT ILLNESS: The patient is a 62-year-old morbidly obese white man recently discharged to a local fpc and readmitted with increasing shortness of breath and persistently abnormal chest x-ray with infiltrate in left lung base. The patient remains rather short winded. He is morbidly obese and he is cannot even able to turn around for me to listen to the back of his lungs. PAST MEDICAL HISTORY: 1. COPD, obstructive sleep apnea, oxygen dependent. 2. Hypertension. 3. Diabetes mellitus. 4. Chronic kidney disease. 5. CVA with right-sided deficit. 6. The patient tells me he has C. difficile positive at [facility]. 7. The patient has history of chronic atrial fibrillation and bilateral lower extremity wounds. 8. He had dialysis in 2017. DRUG ALLERGIES: BACTRIM. MEDICATIONS: The patient is currently on treatment with Levaquin 750 mg IV every 24 hours, diflucan 100 mg p.o. daily, vancomycin 1250 mg IV every 8 hours, Zosyn 3.375 grams IV every 8 hours. The patient's creatinine elevated to 1.6, we will make sure to adjust doses if renal function does not continue to improve. The patient is also receiving treatment with gabapentin, diltiazem, tamsulosin, apixaban, guaifenesin, methylprednisolone 40 mg IV every 8 hours, hydralazine p.r.n., glucose-glucagon p.r.n., acetaminophen p.r.n., Atrovent and albuterol inhalation treatments were discontinued. SOCIAL HISTORY: See H and P and old records. FAMILY HISTORY: See H and P and old records. [facility] [address] [place] [address] CONSULTATION Name: DEX BLACK Room #: 209-P [facility] IN M.R.#: [id number] Admission: 05/12/18 Attend Phys: Geno Kent Discharge: Date of : 55 Report #: [id number] REVIEW OF SYSTEMS: Morbid obesity. Obstructive sleep apnea. Some diarrhea. Unable to mobilize. Increasing shortness of breath requiring supplemental oxygen. PHYSICAL EXAMINATION: GENERAL: Morbidly obese white man. VITAL SIGNS: Temperature 97.6, pulse 84, respirations 24, BP 145/66, height 6 feet 2 inches, weight 483.2 pounds. HEENMT: Pupils reactive. Mouth edentulous upper and lower plates. No evidence of thrush. NECK: Supple, short, difficult to examine. LUNGS: Crackles left lung anteriorly, patient unable to even turn to the right or left side. HEART: S1, S2. No gallop or murmur. ABDOMEN: Large abdominal wall hernia, left. No masses or megaly, no abnormal tenderness. GENITALIA AND RECTAL: Deferred. EXTREMITIES: Reveal ulceration, left leg posterior lateral aspect and stasis dermatitis both legs, pretibial edema. LABORATORY DATA: Reveal sodium 147, potassium 3.3, BUN 41, creatinine 1.6, glucose 145. NT-proBNP 98492. WBC 20,000, hemoglobin 10.1, platelets 136,000, no differential. ABGs, pH 7.43, pCO2 of 37.4, pO2 of 91, bicarbonate 24 on nonrebreathing mask of 100%. MICROBIOLOGY DATA: Blood cultures were obtained, they are negative so far. Sputum pending received. RADIOLOGY EVALUATION: A chest x-ray on 05/12/2018 revealed cardiomegaly and left basilar infiltrate, pleural effusion, question volume loss. ASSESSMENT: 1. Chronic obstructive pulmonary disease with chronic left basilar pulmonary infiltrate and atelectasis. 2. Congestive heart failure with ejection fraction 50-60%. 3. Diabetes mellitus. 4. Cerebrovascular accident with right-sided hemiparesis. 5. History of Clostridium difficile colitis. 6. Anemia of chronic disease. SUGGESTIONS: Recommend possibly a CT scan of the chest, is agreeable with Pulmonary services, may be in order. For the time being, we will continue coverage with Levaquin, Zosyn and vancomycin. We will have vancomycin managed by pharmacy. May consider repeating stool for C. difficile in view of loose stools and recent Clostridium difficile colitis at the fpc. [address] [address] CONSULTATION Name: DEX BLACK Room #: 209-P ADM IN M.R.#: [id number] Admission: 05/12/18 Attend Phys: Geno Kent Discharge: Date of : 55 Report #: [id number] Kent, thank you for requesting my suggestion. <ELECTRONICALLY SIGNED> By: Ochoa Moulton MD 05/14/18 1151 1227 1525 Ochoa Moulton MD /nt
[2018-05-14 12:10] VITALS: BP 127/77
--- NOTE | 2018-05-14 14:27 | NUR ---
FAXED CLINICAL UPDATE TO [facility]. SPOKE WITH JOSUE IN ADM. AND HE RECEIVED UPDATE. DCP TO FOLLOW.
[2018-05-14 15:55] VITALS: BP 144/64
--- NOTE | 2018-05-14 17:12 | NUR ---
PT CARE ASSUMED APPROX 0700. PT ALERT AND ORIENTED X. DENIES PAIN AND SOA. VSS. BS ELEVATED. SSI USED TO CONTROL. IV STEROIDS REMAIN IN POC. IV ABT REMAIN IN POC. PT REFUSING TURNS THIS SHIFT. REPORTS HE CANNOT BREATHE IF REPOSITIONED. THIS NURSE MADE AN AGREEMENT WITH PT TO TURN ONCE TO CLEAN UNDERNEATH HIM AND CLEAN IF NECESSARY AND ALSO DO SKIN ASSESSMENT. PT HESITANT BUT AGREEABLE. SISTER AT BEDSIDE THIS SHIFT. BOTH DENY QUESTIONS OR CONCERNS REGARDING POC. PROM AND AROM DONE WITH PT THIS SHIFT. WOUND CARE COMPLETED PER ORDER. NO DISTRESS NOTED THIS SHIFT.
--- NOTE | 2018-05-14 18:18 | NUR ---
PT HAD TO BE CLEANED UP DUE TO INCONTINENCE. DESATTED TO 80% DURING CLEAN UP. AFTER CLEANING WAS OVER PT WAS SAT UP AND RECOVERED QUICKLY. O2 SAT WNL AT THIS TIME. SISTER REMAINS AT BEDSIDE.
[2018-05-14 19:54] VITALS: BP 178/104
[2018-05-15 03:58] LABS: ALBUMIN 2.2 g/dL (3.4-5.0); CREATININE 1.9 mg/dL (0.7-1.3); PHOSPHORUS 3.6 mg/dL (2.5-4.9); POTASSIUM 3.6 mmol/L (3.5-5.1)
[2018-05-15 04:03] VITALS: BP 190/103
--- NOTE | 2018-05-15 06:13 | NUR ---
ASSSUMED CARE AT 1900. PT AO X4. DENIES PAIN, SOB, N/V/D. REFUSED TO BE REPOSITIONED . CALLS FOR URINAL APPROPRIATELY. EDEMA ON BOTH EXTREMITIES. WILL CONTINUE TO FOLLOW POC
[2018-05-15 12:08] VITALS: BP 111/68
[2018-05-15 15:20] VITALS: BP 148/83
--- NOTE | 2018-05-15 15:25 | NUR ---
CLINICAL INFO REVIEWED AND DISCUSSED WITH DR. HAYWOOD. [facility] BE APPROPRIATE FOR LTAC STAY AND [facility] IS ONLY OPTION [place] MEDICAID. SPOKE WITH [facility] AT [place] AND FAXED REFERRAL.
--- NOTE | 2018-05-15 16:42 | NUR ---
PT CARE ASSUMED APPROX 0700. PT ALERT AND ORIENTED X4. DENIES PAIN AND SOA. VSS. BS ELEVATED. SSI GIVEN TO CONTROL. IV STERIODS ARE BEING TAPERED. IV ABT REMAINS IN POC. PT BEDREST. REFUSES TURNS. PT IS INCONT OF URINE AND LINENS ARE SOILED BUT PT CONTINUES TO REFUSE CLEAN UP OR LINEN CHANGE. PULM CONSULTED AND ORDERED ALBUMIN AND IV LASIX SO PT REQUESTED BRITTON CATH THAT WAS PLACED WITHOUT ISSUE. PT HAD ALSO REPORTED INABILITY TO URINATE WHEN TRYING TO SO THAT WAS SECOND REASON FOR REQUESTING BRITTON. VANCO LEVEL ELEVATED SO PHARM HAS ADJUSTED AND HELD TODAY'S DOSE HELD. CHEST US DONE AND WHETHER LUNG HAS AIR OR FLUID IS UNSURE. PULLogan KNOWLES ENTERING MORE ORDERS AT THIS TIME. UNABLE TO DO CT OF CHEST DUE TO WEIGHT LIMITATIONS. SISTER AT BEDSIDE. BOTH DENY QUESTIONS OR CONCERNS REGARDING POC. WOUND CARE WILL BE COMPLETED TIMELY AND WOUND CULTURE TO BE COLLECTED. NO DISTRESS NOTED.
[2018-05-15 19:55] VITALS: BP 201/127
[2018-05-15 23:40] VITALS: BP 158/74
[2018-05-16 05:09] VITALS: BP 187/104
[2018-05-16 06:18] VITALS: BP 153/85
--- NOTE | 2018-05-16 06:25 | NUR ---
ASSUMED PT CARE AT 1900. PT A&0X4. PT'S BP WAS ELEVATED AT THE START OF THE SHIFT, NO INTERVENTIONS, BP DROPPED TO 158/74 AROUND 1140PM. BP ELEVATED AGAIN THIS AM AROUND 0500 (187/104). PRN HYDRALIZINE ADMINISTERED, BP DROPPED TO 153/85. PT HAD GOOD URINE OUTPUT OVERNIGHT. PT IS STABLE, STILL REFUSING TURNS & BED PAD CHANGES. PT REMAINS EDEMATOUS. WILL CONTINUE TO MONITOR PER POC.
[2018-05-16 07:35] VITALS: BP 155/83
--- NOTE | 2018-05-16 13:12 | NUR ---
[facility] ACCEPTS MEDICALLY AND WOULD NEED AUTH FROM MEDICAID. BED AVAILABLE TODAY. PER DR. HAYWOOD, NOT MEDICALLY READY, PLANS FOR [facility] TO ASSESS LEFT LUNG.
--- NOTE | 2018-05-16 15:26 | NUR ---
WOUND FOLLOW UP: PT. WAS SEEN TODAY BY DR. MAGALLON AND MYSELF. PT. WOUNDS ARE CLINICALLY BETTER TODAY. RECOMMENDAITONS: CONTINUE WITH CURRENT PLAN OF CARE. PT. AND STAFF NURSE WERE INSTRUCTED ON PLAN OF CARE.
--- NOTE | 2018-05-16 16:12 | NUR ---
ASSESSMENTS DOCUMENTED. CHANGES MADE TO LONG ACTING AND SS INSULIN DUE TO CONTINUED ELEVATED BLOOD SUGARS. PATIENT REFUSING TO BE TURN, REPOSITIONED, OR CLEANED IN BED. ADVANCED LIQUIDS FROM NECTAR THICK TO THIN LIQUIDS, TOLERATING WELL. CHEST XRAY DONE, LIMITED STUDY. MAINTAINING SATS THROUGH OUT THE DAY. PT DENIES ANY NEEDS OR CONCERNS AT THIS TIME.
[2018-05-16 20:15] VITALS: BP 104/60
--- NOTE | 2018-05-17 03:11 | NUR ---
ASSUMED PT CARE AT 1900. VSS. PT A&0X4. ASSESSMENTS AND MEDS GIVEN ARE CHARTED. PT AGREED TO A BED CHANGE TODAY, HOWEVER STILL REFUSING Q2 TURNS. GOOD URINE OUTPUT HOWEVER CONTAINS SEDIMENTS AND IS CLOUDY. BM TODAY. PT REMAINS PLEASANT. NO SIGNIFICANT CHANGES SINCE I TOOK CARE OF HIM YESTERDAY, WILL CONTINUE TO MONITOR PER POC
[2018-05-17 04:55] VITALS: BP 145/67
[2018-05-17 04:56] LABS: APTT 18.8 Seconds (24.5-32.8); INR 1.1; PROTIME 11.4 Seconds (9.3-11.4)
[2018-05-17 09:00] VITALS: BP 127/61
[2018-05-17 12:38] VITALS: BP 132/85
--- NOTE | 2018-05-17 14:25 | NUR ---
Guidance And Control System Engineer visited with the pt and his sister/dpoa Slime at bedside this afternoon. Pt and sister with questions regarding dc planning. The pt anticipates returning to ltc at [facility];however he is receptive to [facility] if needed. He is anxious about the status of his lung. Support provided. [place] liason is following along and can visit with the pt Sunday. Brochures provided. Pt's sister brought in a copy of his dpoa for hc paperwork and a copy is now on the chart. Dc sr. merchandise planner to update [facility] as well.
--- NOTE | 2018-05-17 15:03 | NUR ---
WOUND FOLLOW UP: PT. WAS SEEN TODAY BY DR. MAGALLON AND MYSELF. PT. WOUNDS ARE CLINICALLY BETTER TODAY AND PT. IS RESPONDING WELL TO THERAPY. RECOMMENDATIONS: CONTINUE WITH CURRENT PLAN OF CARE. PT. AND STAFF NURSE WERE INSTRUCTED ON PLAN OF CARE.
[2018-05-17 17:08] VITALS: BP 126/66
[2018-05-17 20:15] VITALS: BP 150/70
[2018-05-18 04:45] VITALS: BP 143/82
--- NOTE | 2018-05-18 05:15 | NUR ---
ASSESSMENT DOCUMENTED. PATIENT HAS OOZING BLISTERS ON THE LEFT INNER THIGH, RIGHT LOWER QUADRANT OF THE ABDOMEN, GAUZE AND ABD APPLIED ON THE LEFT INNER THIGH, SILICONE BORDER APPLIED ON THE RLL QUADRANT. INTERDRY APPLIED ON THE INGUINAL FOLDS AND BREAST FOLDS. BM NOTED. PERIANAL CARE DONE. CHLORHEXIDINE BATH DONE. ORAL CARE DONE. TURNING Q 2 HOURS DONE. MAINTAINED ON FALL PRECAUTION. FF UP POC.
[2018-05-18 08:00] VITALS: BP 138/71
[2018-05-18 09:39] LABS: HEMATOCRIT 30.2 % (42.0-52.0); HEMOGLOBIN 9.6 gm/dL (14.0-18.0); MCH 28.2 pg (26.0-34.0); MCHC 31.9 g/dL (28.0-37.0); MCV 88.5 fL (80.0-100.0); RBC 3.41 mil/uL (4.50-6.00); RDW 22.1 % (10.5-14.5); WBC 7.5 thou/uL (4.0-11.0)
[2018-05-18 09:50] LABS: POTASSIUM 3.3 mmol/L (3.5-5.1)
[2018-05-18 10:37] LABS: ABSOLUTE NEUTROPHILS 7.4 thou/uL (1.4-8.2); ANISOCYTOSIS 2+; OVALOCYTES 1+; PLATELET COUNT 56 thou/uL (150-400); PLATELET ESTIMATE DECREASED
[2018-05-18 12:00] VITALS: BP 136/84
[2018-05-18 16:05] VITALS: BP 136/70
[2018-05-18 20:15] VITALS: BP 157/86
--- NOTE | 2018-05-18 20:20 | NUR ---
ASSUMED CARE OF PT AT 0700. PT A&OX4, BEDRIDDEN. PT'S RIGHT ARM FLACCID BUT MOVES WITH INVOLUNTARY TICS. PT COMPLAINS OF CONTINUED TREMOR. PT INCONTINENT OF STOOL, HAS BRITTON FOR URINE. PT HAS GENERALIZED, NON PITTING EDEMA WITH MULTIPLE AREAS OF WEEPING. BATH GIVEN TODAY AND INTRADRY PLACED IN SKIN FOLDS. ABDOMINAL PADS PLACED IN AREAS THAT WERE WEEPING. INTRADRY WAS WET AND CHANGED IN PANIS AND GROIN BEFORE SHIFT CHANGE. PT HAD TWO LOOSE STOOLS WHICH WERE REPORTED TO COLLAR TURNER NURSE. PT REFUSES TURN AND IS ON BARIATRIC AIR BED. WILL CONT TO MONITOR
[2018-05-19 04:45] VITALS: BP 152/83
--- NOTE | 2018-05-19 04:56 | NUR ---
ASSESSMENT DOCUMENTED. PATIENT ON BARIATRIC BED AND LOW AIR LOSS MATTRESS BUT PATIENT HAS BEEN REFUSING TURNING. GENERALIZED EDEMA, WEEPING NOTED. ONE LOOSE BM NOTED. BED BATH DONE USING CHLORHEXIDINE WIPES. PERIANAL CARE DONE. ORAL CARE DONE. INTERDRY CHANGED. APPLIED MOISTURIZER. WOUND CARE ON BOTH LEGS DONE. FF UP POC.
[2018-05-19 08:05] VITALS: BP 134/66
--- NOTE | 2018-05-19 10:38 | NUR ---
PATIENT DOES NOT SEEM TO BE IN DISTRESS AT THIS TIME. WHEEPING NOTED TO BLE, RIGHT ARM/HAND, BUTTOCKS. BED CHANGED NEEDED AND HE REQUESTS TO. REFUSES TO BE TURNED Q2. STATEAS " I AM OK". WILL CONT WITH PLAN OF CARE.
[2018-05-19 11:50] VITALS: BP 126/64
[2018-05-19 16:50] VITALS: BP 126/62
[2018-05-19 20:10] VITALS: BP 120/60
--- NOTE | 2018-05-20 03:46 | NUR ---
PT ALERT AND ORIENTED. DENIES CHEST PAIN/PAIN, SOB, NAUSEA OR VOMITING. DECLINED Q2H TURNS . PERSONAL ITEMS WITHIN REACH. ASSESSMENTS DOCUMENTED. WILL CONTINUE TO MONITOR.
[2018-05-20 07:31] VITALS: BP 117/64
[2018-05-20] MEDS ORDERED: AUGMENTIN 875-1 EACH PO (08:33)
[2018-05-20] MEDS ORDERED: CARDIZEM CD240 MG PO (08:33)
[2018-05-20] MEDS ORDERED: LASIX 40 MG TAB40 M1 PO (08:33)
[2018-05-20 09:31] VITALS: BP 120/60
--- NOTE | 2018-05-20 10:34 | NUR ---
SPOKE WITH PATIENT PLANNED DC TODAY. DR BENNETT REPORTS PATIENT CAN RETURN TO [facility] NO NEED FOR [facility]AC. [facility] [phone]. NOTIFIED PATIENT OF DC AND TRANSPORT TIME. DC ELECTRONIC EQUIPMENT INSTALLER LEFT MESSAGE WITH SISTER REGARDING DC AND TIMEFRAME. UPDATED RN NO FURTHER NEEDS
--- NOTE | 2018-05-20 15:17 | NUR ---
SUMMARY: WAS ALERT AND ORIENTED, VITALS STABLE. OCCASIONAL TREMORS NOTED WHEN PATIENT IS SLEEPING. TOLERATING DIET W/O NAUSEA. DENIES PAIN. DRESSING ON WOUNDS CHANGED AND PICTURES TAKEN BEFORE DISCHARGE. ORDERS RECEIVED TO DC BACK TO HALF-WAY AND PATIENT PICKED UP THIS AFTERNOON, SISTER AT THE BEDSIDE AND TOOK BELONGINGS WITH HER.
== END 2018-05-20 13:46 | DRG 177 ==
LOC: ER 19:50 → EROBS 22:04 → 2N 22:04
PROVIDERS: Emergency Medicine; Nurse Practitioner Family; Pediatrics; ADMIT Hospitalist
PROC: 5A09357 Assistance with Respiratory Ventilation, Less than 24 Consecutive Hours, Continuous Positive Airway Pressure (ICD-10-PCS; principal; 2018-05-13)
PROC: 5A09357 Assistance with Respiratory Ventilation, Less than 24 Consecutive Hours, Continuous Positive Airway Pressure (ICD-10-PCS; 2018-05-14)
PROC: 5A09357 Assistance with Respiratory Ventilation, Less than 24 Consecutive Hours, Continuous Positive Airway Pressure (ICD-10-PCS; 2018-05-15)
PROC: 5A09357 Assistance with Respiratory Ventilation, Less than 24 Consecutive Hours, Continuous Positive Airway Pressure (ICD-10-PCS; 2018-05-16)
PROC: 5A09357 Assistance with Respiratory Ventilation, Less than 24 Consecutive Hours, Continuous Positive Airway Pressure (ICD-10-PCS; 2018-05-17)
PROC: 5A09357 Assistance with Respiratory Ventilation, Less than 24 Consecutive Hours, Continuous Positive Airway Pressure (ICD-10-PCS; 2018-05-18)
PROC: 5A09357 Assistance with Respiratory Ventilation, Less than 24 Consecutive Hours, Continuous Positive Airway Pressure (ICD-10-PCS; 2018-05-19)
PROC: 5A09357 Assistance with Respiratory Ventilation, Less than 24 Consecutive Hours, Continuous Positive Airway Pressure (ICD-10-PCS; 2018-05-20)
DX: J69.0 Pneumonitis due to inhalation of food and vomit (principal); J96.21 Acute and chronic respiratory failure with hypoxia; J98.11 Atelectasis; L97.929 Non-pressure chronic ulcer of unspecified part of left lower leg with unspecified severity; I13.0 Hypertensive heart and chronic kidney disease with heart failure and stage 1 through stage 4 chronic kidney disease, or unspecified chronic kidney disease; Z68.44 Body mass index [BMI] 60.0-69.9, adult; I69.351 Hemiplegia and hemiparesis following cerebral infarction affecting right dominant side; S80.11XA Contusion of right lower leg, initial encounter; I50.9 Heart failure, unspecified; J44.9 Chronic obstructive pulmonary disease, unspecified; E66.01 Morbid (severe) obesity due to excess calories; G47.33 Obstructive sleep apnea (adult) (pediatric); D69.6 Thrombocytopenia, unspecified; N18.9 Chronic kidney disease, unspecified; D63.8 Anemia in other chronic diseases classified elsewhere; I48.2 Chronic atrial fibrillation; I16.0 Hypertensive urgency; I87.2 Venous insufficiency (chronic) (peripheral); E78.5 Hyperlipidemia, unspecified; B37.9 Candidiasis, unspecified; S80.12XA Contusion of left lower leg, initial encounter; Z88.2 Allergy status to sulfonamides; Z88.8 Allergy status to other drugs, medicaments and biological substances; Z87.891 Personal history of nicotine dependence; Z99.81 Dependence on supplemental oxygen; Z23 Encounter for immunization; Z79.899 Other long term (current) drug therapy
CPT/HCPCS: 10081

== ENCOUNTER 2018-05-22 08:14 | Emergency (ER) | payer OTHER ==
[~2018-05-22] VITALS: Ht 188 cm; Wt 215.5 kg
[~2018-05-22 08:14] MED LIST changes: +AUGMENTIN 875-1 EACH PO; +CARDIZEM CD240 MG PO; +HUMALOG100 UNIT/1 SUBQ; +LASIX 40 MG TAB40 M1 PO
[2018-05-22 08:40] LABS: HEMATOCRIT 30.3 % (42.0-52.0); HEMOGLOBIN 9.8 gm/dL (14.0-18.0); MCH 29.1 pg (26.0-34.0); MCHC 32.2 g/dL (28.0-37.0); MCV 90.2 fL (80.0-100.0); RBC 3.35 mil/uL (4.50-6.00); RDW 24.1 % (10.5-14.5)
[2018-05-22 08:41] LABS: URINE BILIRUBIN NEGATIVE (Negative); URINE BLOOD 2+ (Negative); URINE COLOR YELLOW; URINE GLUCOSE-RANDOM* NEGATIVE (Negative); URINE KETONES NEGATIVE (Negative); URINE NITRITE-REFLEX NEGATIVE (Negative); URINE PROTEIN (DIPSTICK) NEGATIVE (Negative); URINE UROBILINOGEN 0.2 E.U./dl (0.2-1.0)
[2018-05-22 08:42] LABS: URINE LEUKOCYTES-REFLEX 2+ (Negative)
[2018-05-22 08:43] LABS: URINE CLARITY HAZY
--- NOTE | 2018-05-22 08:43 | EKG ---
[place] [address] [facility] [address] [place] [address] ELECTROCARDIOGRAM REPORT Name: DEX BLACK Room #: [facility] M.R.#: [id number] Admission: Attend Phys: Discharge: Date of : 55 Report #: [id number] THIS REPORT FOR: //name// [facility] ED Test Date: 2018-05-22 Test Time: 08:32:46 Pat Name: DEX BLACK Department: Room: Gender: M Supervisor Frame Sample And Pattern: BERENICEIshmael : 1955 Requested By: Cj Mcguire Order Number: [id number] MD: Ignacio Cruz Measurements Intervals [place] Rate: 111 P: [place]: QRS: -43 QRSD: 105 T: 142 QT: 368 QTc: 500 Interpretive Statements Atrial fibrillation Left axis deviation Poor R wave progression Prolonged QT interval Compared to ECG 05/12/2018 20:04:40 No significant change was found Electronically Signed On 05-22-2018 8:43:10 DATA ENTRY PROCESSOR by Ignacio Cruz [email or web address] <ELECTRONICALLY SIGNED> By: Ignacio Cruz MD, [facility] 05/22/18 0843 0832 0832 Ignacio Cruz MD, FACC /EPI
[2018-05-22 08:50] LABS: ANION GAP 7 mmol/L (7-16); BUN 44 mg/dL (7-18); CALCIUM 8.1 mg/dL (8.5-10.1); CHLORIDE 108 mmol/L (98-107); CO2 33 mmol/L (21-32); CREATININE 1.8 mg/dL (0.7-1.3); GLUCOSE 155 mg/dL (74-106); SODIUM 148 mmol/L (136-145)
[2018-05-22 08:55] LABS: SQUAMOUS None Seen /LPF (0-3)
[2018-05-22 08:56] LABS: CASTS None Seen /LPF (None Seen); CRYSTALS None Seen /LPF (None Seen)
[2018-05-22 08:57] LABS: ALBUMIN 2.6 g/dL (3.4-5.0); BACTERIA-REFLEX 1-9 Few /HPF (None Seen); DIRECT BILIRUBIN 0.3 mg/dL (<0.1-0.3); LIPASE 86 U/L (73-393); SGOT 17 U/L (15-37); SGPT 36 U/L (30-65); TOTAL BILIRUBIN 0.8 mg/dL (<0.1-1.0); TROPONIN-I <0.06 ng/mL (<0.06)
[2018-05-22 08:57] LABS: BE(vivo) 3.5 mmol/L (-2 to +3); HCO3 28.4 mmol/L (22.0-26.0); PCO2 44.1 mmHg (35.0-45.0); PO2 86.7 mmHg (80.0-100.0); pH 7.426 (7.360-7.450); sO2 96.7 % (92.0-98.0)
[2018-05-22 08:58] LABS: YEAST-REFLEX Present (None Seen)
[2018-05-22 09:13] LABS: ABSOLUTE NEUTROPHILS 8.5 thou/uL (1.4-8.2)
[2018-05-22 09:14] LABS: ANISOCYTOSIS 2+; HYPOCHROMASIA 1+; OVALOCYTES 1+; PLATELET COUNT 55 thou/uL (150-400); TEARDROPS OCCASIONAL
[2018-05-22] MEDS ORDERED: LEVAQUIN 750 M750 MG PO (11:21)
[2018-05-22 12:53] VITALS: BP 92/76
[2018-05-23] MEDS ORDERED: PREDNISONE 20 M20 MG PO (12:38)
[2018-05-23] MEDS ORDERED: UNICOMPLEX M TA1 TA1 PO (12:38)
[2018-05-23] MEDS ORDERED: VITAMINC500 PO (12:38)
== END 2018-05-22 13:00 ==
LOC: ER 08:14
PROVIDERS: Emergency Medicine
DX: E86.0 Dehydration (principal); I48.91 Unspecified atrial fibrillation; R11.0 Nausea; J44.9 Chronic obstructive pulmonary disease, unspecified; I13.2 Hypertensive heart and chronic kidney disease with heart failure and with stage 5 chronic kidney disease, or end stage renal disease; E11.22 Type 2 diabetes mellitus with diabetic chronic kidney disease; N18.6 End stage renal disease; I50.9 Heart failure, unspecified; E66.01 Morbid (severe) obesity due to excess calories; G47.33 Obstructive sleep apnea (adult) (pediatric); J96.11 Chronic respiratory failure with hypoxia; E78.5 Hyperlipidemia, unspecified; Z88.1 Allergy status to other antibiotic agents; Z88.2 Allergy status to sulfonamides; Z99.2 Dependence on renal dialysis; Z68.44 Body mass index [BMI] 60.0-69.9, adult; Z86.73 Personal history of transient ischemic attack (TIA), and cerebral infarction without residual deficits; Z79.4 Long term (current) use of insulin

== ENCOUNTER 2018-05-23 10:02 | Inpatient (IN) | payer OTHER ==
[~2018-05-23] VITALS: Ht 172.7 cm; Wt 210.8 kg
--- NOTE | ~2018-05-23 | HC ---
[facility] [address] [address] CONSULTATION Name: DEX BLACK Room #: 203-P ADM IN M.R.#: [id number] Admission: 05/23/18 Attend Phys: Geno Kent Discharge: Date of : 55 Report #: [id number] THIS REPORT FOR: //name// CC: FAM unknown Geno Woodkarron REASON FOR CONSULTATION: Potential TTP. HISTORY OF PRESENT ILLNESS: Details of the history were obtained from the medical chart, as the patient is not able to provide me with the details of the history. He has a very complicated past medical history with COPD, morbid obesity, obstructive sleep apnea. He stays in a nursing facility. He has permanent a-fib and diastolic heart failure. He was in the hospital on 04/29, 05/12, 05/23. The details of those are well delineated in the hospital medical record. He had numerous complications during his hospital stay including, but not limited to respiratory failure, fluid overload, anemia, and thrombocytopenia. He required oxygen supplementation and the most recent admission was due to shortness of breath. His oxygen sat was down in the 80s in his facility. The patient's creatinine has been fluctuating during his hospital stay. Creatinine on 05/01 was 1.6 and has fluctuated ever since anywhere from 1.7-2.0 with the most recent creatinine down to 1.5. There is a concern that the patient might be having TTP given his white blood cell count, anemia, low platelets. The patient's platelets have trended down from 315,000 down to 70,000. He had some red blood cells in his urine, but this is a Lewis sample. He is currently being investigated by the hematology team. There is no evidence of hemolysis. His thrombocytopenia is thought to be related to multifactorial issues. Smear is ordered, but no evidence of schistocytes. CPK, LDH, heparin-induced thrombocytopenia antibodies are also pending. As I have stated, the patient has very complicated past medical history including a previous stroke, for which he resides in a nursing facility. PAST MEDICAL HISTORY: 1. CHF. 2. Hypertension. 3. Right CVA with hand flaccid paralysis. 4. Obstructive sleep apnea. 5. Diabetes mellitus. 6. Hyperlipidemia. 7. Bilateral lower extremity wound. 8. C. diff. 9. Remote history of dialysis dependent in 2017. REVIEW OF SYSTEMS: Unobtainable given the patient's mental status. ALLERGIES: Listed as SULFA and TRIMETHOPRIM. [facility] [address] [place] [address] CONSULTATION Name: DEX BLACK Room #: 203-P [facility] IN .R.#: [id number] Admission: 05/23/18 Attend Phys: Geno Kent Discharge: Date of : 55 Report #: [id number] FAMILY HISTORY: Unobtainable given the patient's mental status. SOCIAL HISTORY: Unobtainable, but he resides into a facility. PHYSICAL EXAMINATION: GENERAL: He is disoriented to time, place, and person. VITAL SIGNS: Blood pressure is 154/79, pulse rate is 101. Temperature 37.9. HEAD AND NECK: Mouth deviated to the right side. CHEST: Limited air entry bilaterally. CARDIOVASCULAR: Distant S1 and S2. ABDOMEN: Morbid obesity with hernia and cellulitic changes of the abdominal wall. LOWER EXTREMITIES: +4 edema. UPPER EXTREMITIES: +4 edema with weeping wounds. LABORATORY VALUES: Reviewed. White blood cell count 3.1, platelets 70.1. Sodium 148, potassium 3.1, BUN 38, creatinine is down to 1.5. LDH is pending. Phosphorus is pending. Total bilirubin is 0.9. GGT is normal. Other liver enzymes are normal. ASSESSMENT, IMPRESSION AND PLAN: 1. Acute kidney injury. 2. Respiratory failure. 3. Leukopenia. 4. Thrombocytopenia. 5. Multiple other comorbid conditions. 6. The patient's presentation, liver enzymes, improving renal function argues against thrombotic thrombocytopenic purpura, hemolytic-uremic syndrome. Investigation has been initiated by the hematology team and we will continue to follow. 7. From the renal perspective, potassium has been replaced. His sodium has gone up and we will need to keep an eye on his free water intake. It will be very difficult to manage his volume, electrolytes; however, we will try our best. He is a full code, but no intubation. I really think we should address scopes of care with his family members. By: 1026 [id number] Korey Barry MD /nt
[~2018-05-23 10:02] MED LIST changes: +LEVAQUIN 750 M750 MG PO
[2018-05-23 10:03] VITALS: BP 109/83
[2018-05-23 10:33] LABS: BE(vivo) 6.4 mmol/L (-2 to +3); HCO3 31.2 mmol/L (22.0-26.0); PCO2 46.5 mmHg (35.0-45.0); PO2 70.3 mmHg (80.0-100.0); pH 7.445 (7.360-7.450); sO2 94.6 % (92.0-98.0)
[2018-05-23 11:10] LABS: ABSOLUTE NEUTROPHILS 5.1 thou/uL (1.4-8.2); BASOPHILS 0.4 % (0.0-2.0); EOSINOPHILS 2.6 % (0.0-3.0); HEMATOCRIT 29.7 % (42.0-52.0); HEMOGLOBIN 9.6 gm/dL (14.0-18.0); LYMPHOCYTES 3.8 % (24.0-44.0); MCH 28.9 pg (26.0-34.0); MCHC 32.2 g/dL (28.0-37.0); MCV 89.7 fL (80.0-100.0); MONOCYTES 4.5 % (1.0-8.0); POLYS 88.7 % (36.0-66.0); RBC 3.31 mil/uL (4.50-6.00); RDW 24.1 % (10.5-14.5); WBC 5.8 thou/uL (4.0-11.0)
[2018-05-23 11:21] LABS: ANION GAP 6 mmol/L (7-16); BUN 38 mg/dL (7-18); CALCIUM 8.2 mg/dL (8.5-10.1); CHLORIDE 110 mmol/L (98-107); CO2 32 mmol/L (21-32); CREATININE 1.5 mg/dL (0.7-1.3); GLUCOSE 185 mg/dL (74-106); POTASSIUM 3.1 mmol/L (3.5-5.1); SODIUM 148 mmol/L (136-145)
[2018-05-23 11:24] LABS: ANISOCYTOSIS 2+; PLATELET COUNT 65 thou/uL (150-400); PLATELET ESTIMATE DECREASED; SCHISTOCYTES 1+
[2018-05-23 11:29] LABS: TROPONIN-I <0.06 ng/mL (<0.06)
[2018-05-23] MEDS ORDERED: PREDNISONE 20 M20 MG PO (12:38)
[2018-05-23] MEDS ORDERED: UNICOMPLEX M TA1 TA1 PO (12:38)
[2018-05-23] MEDS ORDERED: VITAMINC500 PO (12:38)
--- NOTE | 2018-05-23 15:26 | EKG ---
[place] [address] [place] [address] ELECTROCARDIOGRAM REPORT Name: DEX BLACK [facility] [id number] Admission: 05/23/18 Attend Phys: Discharge: Date of : 55 Report #: [id number] THIS REPORT FOR: //name// [facility] ED Test Date: 2018-05-23 Test Time: 11:10:10 Pat Name: DEX BLACK Department: Room: Gender: Seed Cone Picker: : 1955 Requested By: Haroon Wei Order Number: [id number] MD: Trenton Moulton Measurements Intervals [place] Rate: 122 P: [place]: QRS: -38 QRSD: 111 T: 76 QT: 339 QTc: 483 Interpretive Statements Atrial fibrillation Ventricular premature complex Low voltage, precordial leads Abnormal R-wave progression, late transition Borderline repolarization abnormality Electronically Signed On 05-23-2018 15:26:25 IT SERVICE TECHNICIAN by Trenton Moulton [email or web address] <ELECTRONICALLY SIGNED> By: Trenton Moulton MD 05/23/18 1526 1110 1110 MD FRANCESCO Trevino
[2018-05-23 15:33] VITALS: BP 92/61
[2018-05-23 16:30] VITALS: BP 140/72
[2018-05-23 16:43] LABS: ALBUMIN 2.4 g/dL (3.4-5.0); DIRECT BILIRUBIN 0.3 mg/dL (<0.1-0.3); TOTAL BILIRUBIN 0.9 mg/dL (<0.1-1.0); TOTAL PROTEIN 4.8 g/dL (6.4-8.2)
[2018-05-23 19:50] VITALS: BP 146/91
[2018-05-23 23:18] VITALS: BP 126/84
[2018-05-24 04:17] LABS: ABSOLUTE NEUTROPHILS 2.5 thou/uL (1.4-8.2); BASOPHILS 0.3 % (0.0-2.0); EOSINOPHILS 4.2 % (0.0-3.0); HEMATOCRIT 27.4 % (42.0-52.0); HEMOGLOBIN 8.8 gm/dL (14.0-18.0); LYMPHOCYTES 6.1 % (24.0-44.0); MCH 28.8 pg (26.0-34.0); MCV 90.1 fL (80.0-100.0); MONOCYTES 9.4 % (1.0-8.0); PLATELET COUNT 70 thou/uL (150-400); RBC 3.04 mil/uL (4.50-6.00); RDW 24.5 % (10.5-14.5); WBC 3.1 thou/uL (4.0-11.0)
[2018-05-24 04:52] VITALS: BP 136/78
[2018-05-24 07:20] VITALS: BP 154/79
[2018-05-24 08:07] LABS: HEMATOLOGY COMMENTS Note: (()); HEMOGLOBIN 9.4 g/dL (13.0-17.7)
[2018-05-24 11:20] VITALS: BP 143/79
[2018-05-24 11:57] LABS: ABSOLUTE RETIC COUNT 0.0586 10^6/uL; OBSERVED RETIC COUNT 2.01 % (0.6-2.6)
[2018-05-24 12:03] LABS: ALBUMIN 2.2 g/dL (3.4-5.0); CALCIUM 7.7 mg/dL (8.5-10.1); CREATININE 1.6 mg/dL (0.7-1.3); PHOSPHORUS 2.6 mg/dL (2.5-4.9); POTASSIUM 3.3 mmol/L (3.5-5.1)
[2018-05-24 15:35] VITALS: BP 116/94
[2018-05-24 17:57] LABS: CALCIUM 7.8 mg/dL (8.5-10.1); CREATININE 1.5 mg/dL (0.7-1.3); POTASSIUM 3.3 mmol/L (3.5-5.1)
[2018-05-24 20:00] VITALS: BP 126/71
[2018-05-25 03:53] VITALS: BP 136/46
[2018-05-25 04:20] LABS: HEMATOCRIT 25.5 % (42.0-52.0); HEMOGLOBIN 8.1 gm/dL (14.0-18.0); MCH 28.7 pg (26.0-34.0); MCHC 31.8 g/dL (28.0-37.0); MCV 90.1 fL (80.0-100.0); RBC 2.84 mil/uL (4.50-6.00); RDW 24.2 % (10.5-14.5); WBC 2.5 thou/uL (4.0-11.0)
[2018-05-25 04:35] LABS: ALBUMIN 2.2 g/dL (3.4-5.0); CALCIUM 7.6 mg/dL (8.5-10.1); CREATININE 1.6 mg/dL (0.7-1.3); PHOSPHORUS 2.3 mg/dL (2.5-4.9); POTASSIUM 3.1 mmol/L (3.5-5.1)
[2018-05-25 07:05] VITALS: BP 119/71
[2018-05-25 11:05] VITALS: BP 116/45
[2018-05-25 15:50] VITALS: BP 90/46
[2018-05-25 19:10] VITALS: BP 148/99
[2018-05-25 23:06] LABS: HEMATOCRIT 24.7 % (42.0-52.0); HEMOGLOBIN 7.8 gm/dL (14.0-18.0); MCH 29.2 pg (26.0-34.0); MCHC 31.5 g/dL (28.0-37.0); MCV 92.7 fL (80.0-100.0); PLATELET COUNT 102 thou/uL (150-400); RBC 2.67 mil/uL (4.50-6.00); RDW 24.8 % (10.5-14.5)
[2018-05-26 00:03] LABS: ABSOLUTE NEUTROPHILS 1.6 thou/uL (1.4-8.2); METAMYELOCYTES 1 %
[2018-05-26 00:05] LABS: SCHISTOCYTES FEW; TEARDROPS 1+
[2018-05-26 00:06] LABS: ANISOCYTOSIS 3+; POLYCHROMASIA OCCASIONAL
[2018-05-26 04:47] VITALS: BP 77/42
[2018-05-26 04:59] LABS: ALBUMIN 2.2 g/dL (3.4-5.0); CALCIUM 7.3 mg/dL (8.5-10.1); CREATININE 1.6 mg/dL (0.7-1.3); PHOSPHORUS 2.4 mg/dL (2.5-4.9); POTASSIUM 3.5 mmol/L (3.5-5.1)
[2018-05-26 05:12] LABS: HEMATOCRIT 24.8 % (42.0-52.0); HEMOGLOBIN 7.7 gm/dL (14.0-18.0); MCH 28.4 pg (26.0-34.0); MCHC 31.1 g/dL (28.0-37.0); MCV 91.2 fL (80.0-100.0); RBC 2.71 mil/uL (4.50-6.00); RDW 24.5 % (10.5-14.5); WBC 2.1 thou/uL (4.0-11.0)
[2018-05-26 05:47] VITALS: BP 105/68
[2018-05-26 07:15] VITALS: BP 122/97
[2018-05-26 11:25] VITALS: BP 104/82
[2018-05-26 16:30] VITALS: BP 101/61
[2018-05-26 19:23] VITALS: BP 125/112
[2018-05-27 03:40] LABS: ALBUMIN 2.1 g/dL (3.4-5.0); CALCIUM 7.1 mg/dL (8.5-10.1); CREATININE 1.6 mg/dL (0.7-1.3); PHOSPHORUS 2.3 mg/dL (2.5-4.9); POTASSIUM 3.5 mmol/L (3.5-5.1)
[2018-05-27 04:06] VITALS: BP 104/55
[2018-05-27 07:25] VITALS: BP 102/73
--- NOTE | 2018-05-27 07:26 | HC ---
[facility] [place] [address] CONSULTATION Name: DEX BLACK Room #: 203-P ADM IN M.R.#: [id number] Admission: 05/23/18 Attend Phys: Geno Kent Discharge: Date of : 55 Report #: [id number] THIS REPORT FOR: //name// CC: Ignacio Cruz MD [facility] Dr. Gaurang Lopez FAM unknown Ochoa Ha REFERRING PHYSICIAN: Geno Kent M.D. REASON FOR CONSULTATION: Low platelets. HISTORY OF PRESENT ILLNESS: The patient is a 62-year-old gentleman who has had several recent hospitalizations for issues related to wound care and pneumonia. He had recently been in the hospital and had been discharged. He was brought back here and is found to have low platelets. Note that in reviewing his history, his current hemoglobin is 8.8; previously, it had been 9.6. These numbers are not drastically or very much different from the ones over the past month. His white count is 3.1, down from 5.8, down from 9. Differential appears nonacute. Platelet count was 218,000 back on 05/04/2018, 133,000 on 05/14/2018, 56,000 on 05/18/2018, then 55,000, then 65,000 and 70,000 today. His coags have been normal. ANC 2.5. Platelet antibody negative. Haptoglobin normal at 154. Liver function is normal and note that total bilirubin is 0.9. Coags are normal. Urine culture is negative. Note that on 04/30/2018, his iron was 41, low; TIBC was 229 and percent saturation low at 18. TSH normal at 0.65, folate low at 7.5 and B12 low normal at 241. On reviewing his medications, he has not been on heparinoids for quite some time and no medications are seen to persist across the admissions. If you are aware about a medication, you would worry about something that might have been initiated, perhaps around 05/14/2018 or maybe between 05/04/2018 and 05/14/2018. I do not really see any medications that were begun at that time that he was not on for some time before. There was fluconazole, though it is not likely to be on the list of causation. The fact that he is slowly now improving suggest that it may be related to infection or some other reversible process. The patient is not able to contribute any to a discussion. He flickers his eyes open when you loudly call his name. According to the nurse, he has not been mentating or able to answer questions since admission. Reportedly, when he was at the care facility, he was having some hallucinations. The nurse that worked in the day had written that last time she did see, he appears to have a little bit more bruising in the area near his armpits, which could be in a position where caregiver was helping move him might have caused some ecchymosis with the low platelets. He also has had some slight ecchymosis around his wounds, especially on his right lower extremity. He does [facility] [address] [place] [address] CONSULTATION Name: DEX BLACK Room #: 203-P ADM IN M.R.#: [id number] Admission: 05/23/18 Attend Phys: Geno Kent Discharge: Date of : 55 Report #: [id number] not have any nosebleeds. He does not appear to have any conjunctival hemorrhage. There are no reports of blood in his urine or stool, though there may have been a few red cells in his urine. PAST MEDICAL HISTORY: Past history is very complex and includes congestive heart failure, COPD, hypertension, morbid obesity and history of right-sided weakness due to a CVA, I believe, from 02/2018. Also obstructive sleep apnea, chronic respiratory failure, diabetes mellitus, hyperlipidemia, chronic AFib, history of C. diff and history of chronic kidney disease with dialysis in 2016. Note that he has had iron deficiency earlier with an MCV of 62 and RDW of 19, when seen by Dr. Marilee Gloria. Note that that might have been from outside lab as I do not see any in our records here at [facility]. His lowest MCV had been 83. FAMILY AND SOCIAL HISTORY: Not really available at this time. MEDICATIONS: Multiple and currently include prednisone 20 daily, which could also contribute to his bruising; montelukast 10 mg; citalopram 40 daily; diltiazem 240 daily; tamsulosin 0.4 b.i.d.; gabapentin 300 t.i.d.; carvedilol 25 b.i.d.; levofloxacin 150 mL daily, the dose, I believe, is 750 mg; insulin on a sliding scale; zolpidem 5 mg at night p.r.n.; MiraLax daily, nitroglycerin p.r.n. and Zofran p.r.n. PHYSICAL EXAMINATION: VITAL SIGNS: Height is various, reported as around 6 feet 2 inches, 187.96 cm; another mention of 5.8. Weight is reported as around 475 pounds or 215.4 kilograms. Recent blood pressure is 136/78, respirations 22, O2 sat 97 on about 3 liters, pulse most recent 104 and temperature 99.8. NEUROLOGIC: Mood is unassessable. The patient is mostly drowsy and does not arouse much, except to on loudly calling his name. HEENT: Oropharynx appears to be slightly dry. No obvious lesions. No obvious blood from his nose or mouth. LUNGS: Difficult to hear, but I do not hear any definite rhonchi or rales, but he has very distant breath sounds. HEART: Appears to be regular, but again it is very difficult to hear. LYMPHATIC: There is no definite lymphadenopathy in the supraclavicular, cervical or axillary region, but again the patient is morbidly obese. ABDOMEN: Very obese, really unable to determine anything on exam, other than it does not appear to be tympanitic or tender. EXTREMITIES: According to the nurse, had much less edema in the past. The patient does have wound dressings on both lower extremities. SKIN: The patient does have some ecchymosis in the areas near his arm axilla bilaterally, also some that I know on his right leg near his wounds. ASSESSMENT AND PLAN: 1. Low platelets. The fact they are slightly improved without specific TTP or [facility] [address] [place] [address] CONSULTATION Name: DEX BLACK Room #: 203-P ADM IN M.R.#: [id number] Admission: 05/23/18 Attend Phys: Geno Kent Discharge: Date of : 55 Report #: [id number] HUS-type therapy would suggest that this is related to either infection or medication that has been stopped. The patient does have some bruising and is off anticoagulants. Doubt TTP or HUS given slight improvement and also improvement in renal function and stable hemoglobin. Most likely, it is multifactorial related to low folate, multiple health issues and possible infection. We will await peripheral smear review. We will re-order LDH, check transferrin receptor assay level, as it could be consistent with either anemia of chronic disease or iron deficiency. We will also check methylmalonic acid level. We will also ultrasound the lower extremities and also check a heparin antibody. 2. Anemia, lower but appears to be stable. We will check retic count and transferrin receptor assay. 3. Bruising, most likely related to prednisone, nutrition and low platelets. Coags are normal. The area of bruising is in regions where the patient would have been pulled and pushed to help change position in bed, etc. 4. Chronic kidney disease. It is slightly improving. Renal to see. 5. Mentation changes, unclear etiology to this observer. 6. Probable infection. Continues levofloxacin. Cultures are pending. 7. Atrial fibrillation. Defer to others. 8. History of right-sided weakness due to cerebrovascular accident. Defer to others. 9. Chronic obstructive pulmonary disease. Defer to others. 10. Hypertension. Defer to others. 11. History of Clostridium difficile in the past, currently in isolation, awaiting clarification of protocol. 12. Respiratory failure, oxygen and BiPAP are needed. 13. Morbid obesity. Defer to others. Does greatly limit exam. 14. Skin wounds. Defer to others. 15. Protein-calorie malnutrition. Defer to others. 16. Diabetes mellitus, sliding scale insulin. Defer to others. <ELECTRONICALLY SIGNED> By: Francisco Astorga MD 05/27/18 0726 [id number] 1022 Francisco Astorga MD /nt
--- NOTE | 2018-05-27 08:45 | HC ---
[facility] [place] [address] CONSULTATION Name: DEX BLACK Room #: 203-P ADM IN M.R.#: [id number] Admission: 05/23/18 Attend Phys: Geno Kent Discharge: Date of : 55 Report #: [id number] THIS REPORT FOR: //name// CC: FAM unknown Geno Kent Robinson Akkulugari DATE OF SERVICE: 05/24/2018 REQUESTING PHYSICIAN: Dr. Kent. CHIEF COMPLAINT: Leg wounds. HISTORY OF PRESENT ILLNESS: This is a 62-year-old morbidly obese white male who was admitted to the hospital for nausea and shortness of breath. The patient has a history of bilateral hematomas on both lower extremities, which had been opened and evacuated. The patient has currently been receiving care at a chronic snf care facility. The patient himself is on BiPAP, unable to give us any history whatsoever at this time. The patient also is hallucinating according to records. The patient also has several open skin tears on his upper extremities secondary to fluid overload and serous fluid blisters developing and then rupturing. No other further wounds are documented. 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 CURRENT MEDICATIONS: Multiple, I reviewed the patient's medication list. The patient is on Eliquis. DRUG ALLERGIES: SULFA. SOCIAL HISTORY: The patient resides in a long-term care facility. Former smoker, does not drink alcohol at this time and has previous alcohol use. FAMILY HISTORY: Unobtainable because of the patient's confused state and on BiPAP. REVIEW OF SYSTEMS: Unobtainable because of the patient's confused state and on BiPAP. PHYSICAL EXAMINATION: VITAL SIGNS: The patient is afebrile, pulse is 95, BP 119/71. GENERAL: This is an awake and alert x 1 person, but not place or time, morbidly [address] [address] CONSULTATION Name: DEX BLACK Room #: 203-P ADM IN M.R.#: [id number] Admission: 05/23/18 Attend Phys: Geno Kent Discharge: Date of : 55 Report #: [id number] obese white male who is on BiPAP. HEENT: Normocephalic, atraumatic. Mucous membranes are somewhat dry. Pupils are round. Sclerae are white. NECK: Obese but otherwise supple with slight JVD. LUNGS: Slightly diminished breath sounds heard throughout with chronic wheezes heard throughout. CHEST: Nontender. HEART: Irregularly irregular with a 2/6 systolic ejection murmur. ABDOMEN: Morbidly obese, but no signs of any actual fungal infections underneath his pannus. EXTREMITIES: Evaluation of upper extremity reveals multiple small bullous lesions on both sides with some have ruptured and are leaking serous fluid. Others are still intact. There are no signs of infection of these bullous lesions. Left lower extremity, there is a large clean, granulating wound limited to breakdown of subcutaneous tissue and the previous hematoma. No other associated wounds are noted. Bilateral heels are intact. Distal pulses are 1+ dorsalis pedis and posterior tibial. Evaluation of right lower extremity reveals multiple ecchymotic regions. There is a small area on the right lateral superior calf region where previous I and D had been performed of a hematoma. This too is clean and granulating with minimal serosanguineous drainage without odor. There are no signs of infection. Periwound is otherwise intact with associated ecchymosis. NEUROLOGIC: Cranial nerves 2-12 are grossly intact. The patient once again is confused. LABORATORY DATA: White count 3.1, hemoglobin 8.8. BUN 32, creatinine 1.6, albumin is 2.2. IMPRESSION: 1. Chronic ulcerations bilateral lower extremities secondary to hematoma evacuations, limited to breakdown of subcutaneous tissues without signs of obvious cellulitis. 2. Bilateral lower extremity edema. 3. Morbid obesity. 4. Diabetes mellitus. 5. History of chronic respiratory failure. 6. Generalized debility. 7. Protein-calorie malnutrition -- severe with albumin 2.2. PLAN: At this time, we will start morphine-Silvadene to the bilateral lower extremity ulcerations, cover this with Xeroform, ABD, Kerlix and Juan Luis, to be changed twice daily. We will elevate his heels while the patient is in bed for protection. The patient will be turned every 2 hours on a low air loss mattress. We will try to make sure we maximize the patient's protein supplementation for healing. We will utilize physical and occupational therapy when the patient is medically stable for that. Any of the blisters on the [facility] [address] [facility] [place] [address] CONSULTATION Name: DEX BLACK Room #: 203-P ADM IN M.R.#: [id number] Admission: 05/23/18 Attend Phys: Geno Kent Discharge: Date of : 55 Report #: [id number] extremities will be covered with Optifoam dressings and changed on a p.r.n. basis. I appreciate the ability to consult. <ELECTRONICALLY SIGNED> By: Jona Mart MD 05/27/18 0845 1220 1346 Jona Mart MD /nt
--- NOTE | 2018-05-27 10:06 | HC ---
[facility] [place] [address] CONSULTATION Name: DEX BLACK Room #: 203-P ADM IN M.R.#: [id number] Admission: 05/23/18 Attend Phys: Geno Kent Discharge: Date of : 55 Report #: [id number] THIS REPORT FOR: //name// CC: FAM unknown Geno Kent Robinson Akkulugari DATE OF SERVICE: 05/24/2018 INFECTIOUS DISEASE CONSULTATION ATTENDING PHYSICIAN: Geno Kent MD REASON FOR CONSULTATION: Antibiotic management. HISTORY OF PRESENT ILLNESS: A 62-year-old white man recently discharged from [facility] and readmitted yesterday with increasing shortness of breath. His chest x-ray continues to be abnormal. He is on Levaquin and germs isolated on the left leg were not sensitive to this antibiotic. The patient is currently on BiPAP and unable to participate in the history and physical exam. Consequently, all information is gathered from review of records. PAST MEDICAL HISTORY: 1. Morbid obesity. 2. Chronic respiratory failure. 3. COPD. 4. Hypertension. 5. Diabetes mellitus. 6. Stasis dermatitis and ulceration, left leg. 7. Chronic kidney disease and history of dialysis in 2017. DRUG ALLERGIES: BACTRIM. MEDICATIONS: The patient on treatment with Levaquin 750 mg IV every 48 hours, receiving Lasix drip, folic acid, prednisone 20 mg p.o. daily, montelukast 10 mg p.o. daily, citalopram 40 mg p.o. daily, diltiazem 240 mg p.o. daily, tamsulosin 0.4 mg b.i.d., gabapentin 300 mg t.i.d., carvedilol 25 b.i.d., p.r.n. glucose, p.r.n. glucagon, p.r.n. zolpidem tartrate, polyethylene glycol daily, nitroglycerin sublingual p.r.n., magnesium supplementation per protocol, potassium supplementation per protocol. SOCIAL HISTORY: See H and P, old records. FAMILY HISTORY: See H and P, old records. REVIEW OF SYSTEMS: Unable to obtain. [facility] [address] [place] [address] CONSULTATION Name: DEX BLACK Room #: 203-P [facility] IN M.R.#: [id number] Admission: 05/23/18 Attend Phys: Geno Kent Discharge: Date of : 55 Report #: [id number] PHYSICAL EXAMINATION: GENERAL: Morbidly obese white man, barely arousable. VITAL SIGNS: Temperature 100.2, pulse 121-101 a minute, irregularly irregular, respiratory rate 24, BP 154/79, O2 saturation 96% on 4 liters per minute and BiPAP. HEENMT: Pupils reactive. Mouth unable to examine. NECK: Short, difficult to examine. CHEST: Revealed ecchymosis in the left chest wall. LUNGS: Decreased breath sounds on the left side. HEART: S1, S2. No gallop. ABDOMEN: Left-sided abdominal wall hernia, obese, extremely difficult to examine. EXTREMITIES: Reveal stasis dermatitis of legs and ulceration of left leg. LABORATORY DATA: Revealed the following abnormals, sodium 148, potassium 3.1, chloride 110, BUN 38, creatinine 1.5, glucose 185, magnesium 1.6, albumin 2.4, NT-proBNP 2775. WBC 3100, hemoglobin 8.8 g/dL, platelets 70,000. White blood cell count differential revealed 80% segmented neutrophils. Urinalysis with pyuria, microscopic hematuria and funguria. ABGs revealed pH 7.44, pCO2 of 46, pO2 of 70, bicarbonate 31, lactate 1.1, this set of gas is on 3.5 liters oxygen nasal cannula. RADIOLOGY EVALUATION: Venous ultrasound negative for DVT per ophthalmology technician performing test not now. Chest x-ray revealed the patient was rotated to the left, atelectasis, consolidation left lung with cardiac silhouette displaced to the left, suspect extensive left-sided atelectasis. ASSESSMENT: 1. Respiratory failure. 2. Morbid obesity. 3. Left lung atelectasis. 4. Chronic kidney disease. 5. Diabetes mellitus. 6. Anemia, leukopenia and thrombocytopenia. 7. Multiple drug-resistant organisms, left leg ulcer. SUGGESTIONS: Recommend if possible bronchoscopy. CT scan out of the question, the patient's weight precludes proceeding with this test. Discontinue Levaquin. Meropenem 1 g IV every 12 hours. PROGNOSIS: Poor, survival doubtful. Recommend DNR. [address] [address] CONSULTATION Name: DEX BLACK Room #: 203-P ADM IN M.R.#: [id number] Admission: 05/23/18 Attend Phys: Geno Kent Discharge: Date of : 55 Report #: [id number] Kent, thank you for requesting my suggestions. <ELECTRONICALLY SIGNED> By: Ochoa Moulton MD 05/27/18 1006 1056 2142 Ochoa Moulton MD /nt
[2018-05-27 11:34] VITALS: BP 117/100
[2018-05-27] MEDS ORDERED: MERREM1 GM IV (15:17)
[2018-05-27] MEDS ORDERED: DEMADEX20 MG PO (15:17)
[2018-05-27] MEDS ORDERED: TUMS PO (15:17)
[2018-05-27] MEDS ORDERED: IRON325 PO (15:17)
[2018-05-27] MEDS ORDERED: POTASSIUM20 PO (15:17)
[2018-05-27] MEDS ORDERED: ANBESOL9 GM TOP (15:17)
[2018-05-27] MEDS ORDERED: PROBIOTIC1 EAC1 PO (15:17)
[2018-05-27] MEDS ORDERED: TYLENOL325 MG PO (15:18)
[2018-05-27 15:45] VITALS: BP 106/45
[2018-05-27 20:39] VITALS: BP 101/60
== END 2018-05-27 21:20 | DRG 871 ==
LOC: ER 10:02 → EROBS 15:25 → 2N 15:25
PROVIDERS: Internal Medicine Hematology & Oncology; Internal Medicine Infectious Disease; Internal Medicine Nephrology; Nurse Practitioner; ADMIT Hospitalist
PROC: 5A09357 Assistance with Respiratory Ventilation, Less than 24 Consecutive Hours, Continuous Positive Airway Pressure (ICD-10-PCS; principal; 2018-05-23)
PROC: 5A09357 Assistance with Respiratory Ventilation, Less than 24 Consecutive Hours, Continuous Positive Airway Pressure (ICD-10-PCS; 2018-05-24)
PROC: 5A09357 Assistance with Respiratory Ventilation, Less than 24 Consecutive Hours, Continuous Positive Airway Pressure (ICD-10-PCS; 2018-05-25)
PROC: 5A09357 Assistance with Respiratory Ventilation, Less than 24 Consecutive Hours, Continuous Positive Airway Pressure (ICD-10-PCS; 2018-05-26)
PROC: 5A09357 Assistance with Respiratory Ventilation, Less than 24 Consecutive Hours, Continuous Positive Airway Pressure (ICD-10-PCS; 2018-05-27)
DX: A41.9 Sepsis, unspecified organism (principal); E43 Unspecified severe protein-calorie malnutrition; J18.1 Lobar pneumonia, unspecified organism; N17.9 Acute kidney failure, unspecified; I13.0 Hypertensive heart and chronic kidney disease with heart failure and stage 1 through stage 4 chronic kidney disease, or unspecified chronic kidney disease; J96.11 Chronic respiratory failure with hypoxia; I69.351 Hemiplegia and hemiparesis following cerebral infarction affecting right dominant side; J98.11 Atelectasis; L97.828 Non-pressure chronic ulcer of other part of left lower leg with other specified severity; L97.818 Non-pressure chronic ulcer of other part of right lower leg with other specified severity; Z68.45 Body mass index [BMI] 70 or greater, adult; E87.0 Hyperosmolality and hypernatremia; D61.818 Other pancytopenia; E66.01 Morbid (severe) obesity due to excess calories; J44.9 Chronic obstructive pulmonary disease, unspecified; E87.6 Hypokalemia; I95.9 Hypotension, unspecified; E11.22 Type 2 diabetes mellitus with diabetic chronic kidney disease; I50.9 Heart failure, unspecified; N18.9 Chronic kidney disease, unspecified; G47.33 Obstructive sleep apnea (adult) (pediatric); I48.2 Chronic atrial fibrillation; E86.0 Dehydration; E78.5 Hyperlipidemia, unspecified; Z87.891 Personal history of nicotine dependence; Z79.01 Long term (current) use of anticoagulants; Z79.4 Long term (current) use of insulin; Z79.51 Long term (current) use of inhaled steroids; Z79.899 Other long term (current) drug therapy; Z88.1 Allergy status to other antibiotic agents; Z88.2 Allergy status to sulfonamides
CPT/HCPCS: 10081

== ENCOUNTER 2020-06-19 15:54 | Inpatient (IN) | payer OTHER ==
[~2020-06-19] VITALS: Ht 182.9 cm; Wt 198.4 kg
--- NOTE | ~2020-06-19 | EMS ---
[address] [address] EMS Patient Care Report Name: DEX BLACK Room #: REG JULIETTE Frias#: [id number] Admission: 06/19/20 Attend Phys: Discharge: Date of : 55 Report #: [id number] THIS REPORT FOR: //name// Report Transmitted: 06/19/2020 15:[address] [facility] MED-ACT Incident [id number] @ 06/19/2020 15:30 Incident Location [address] [place] [address] Patient DEX LBACK Male, 64 Years 1955 Patient Address [address] [place] [address] Patient History Hypertension (HTN),Hyperlipidemia,Morbid Obesity,Depression,Atrial Fibrillation,Anemia,Sleep Apnea,Chronic Kidney Disease,Novel Coronavirus (COVID-19), Patient Allergies Sulfa,Trimethoprim, Patient Medications Flomax, Morphine, Citalopram, Digoxin, Xarelto, Lantus, Hydrocodone, Buspirone, Humalog, Gabapentin, Carvedilol, Chief Complaint "He is not acting normal" Disposition Transported No Lights/[place] [facility]patch Reason Altered Mental Status Transported To [address] [address] EMS Patient Care Report Name: DEX BLACK Room #: REG JULIETTE Frias#: [id number] Admission: 06/19/20 Attend Phys: Discharge: Date of : 55 Report #: [id number] Narrative C- "He is not acting normal" Hx- Dispatched C3 to SNF for bariatric transfer. Pt is 65 yo m pt who was earleir this week on hospice but refused to sign DNR and is now requesting transport to hospital so he is being removed from hospice. Pt had COVID and facility thinks he has been vaccinated but is unsure. Family requested [facility] A- Pt found semi jacob in bed, pt is bed bound Rx- Assessment, vitals, 4/12 lead, bgl, iv T- Vitals stable, 12 lead normal, bgl WNL, iv access. Staff assist in moving pt via hoyuer lift to bariatric bed. Pt secured and then moved to cot and secured. Biocom to [facility]. En route pt is uncomfortable but no other issues arise. D- Arrive to facility, cot to lata anderson via hover mat. Then hover mat to hospital bed. Full verbal to staff and transfer of care is completed. Initial Vitals @15:34P: 94,R: 20,BP: 95/67,Pain: 0/10,GCS: 13,Temp: 98F,Glucose: 225,SpO2: 94,Revised Trauma: 12, Assessments @15:30MENTAL:Confused,Person Oriented,SKIN:HEENT:Eyes: Left Pupil: 4-mm,Eyes: Right Pupil: 4-mm,LUNG SOUNDS:Left Upper: Distension,Right Upper: Distension,Left Lower: Distension,Right Lower: Mass,Right Lower: Distension,ABDOMEN:Left Upper: Distension,Right Upper: Distension,Left Lower: Distension,Right Lower: Mass,Right Lower: Distension,PELVIS//GI:EXTREMITIES:PULSE:NEURO: Impression Altered Mental Status Timeline 15:30,At Patient 15:30,Call Received 15:30,Dispatched 15:30,En Route 15:30,On Scene 15:30,Psap Call 15:34,BP: 95/67 M,PULSE: 94,RR: 20 R,SPO2: 94 Ox,ETCO2: ,B,PAIN: 0,GCS: 13, 15:40,Depart Scene 15:50,At Destination [facility] [address] [place] [address] EMS Patient Care Report Name: DEX BLACK Room #: REG [facility]#: [id number] Admission: 06/19/20 Attend Phys: Discharge: Date of : 55 Report #: [id number] 16:50,Call Closed Disclaimer v1.1 Copyright 2020 [employer] This EMS Care Summary contains data elements from the applicable legal record (which may be displayed differently). It is designed to provide pertinent information for the following purposes: continuity of care, clinical quality, and state data reporting. The complete legal record is available to ED staff and administrators of the receiving hospital in [employer]'s Patient Tracker. All data is provided "as is."
--- NOTE | ~2020-06-19 | HC ---
[facility] [place] [address] CONSULTATION Name: DEX BLACK Room #: 246-P ADM IN M.R.#: [id number] Admission: 06/19/20 Attend Phys: Brian Zhao MD Discharge: Date of : 55 Report #: [id number] THIS REPORT FOR: cc: Robisnon Ha MD, Shyam MD Al-Absi,Korey Lebron MD ~ REASON FOR CONSULTATION: Acute kidney injury. REASON FOR PRESENTATION: Mental status changes and confusion. HISTORY OF PRESENT ILLNESS: This is a very well-known patient to me from few years ago. He is morbidly obese. The patient with extensive past medical history including and not limited to chronic kidney disease with a baseline creatinine of around 2.0. He is also known to have chronic pain syndrome. He carries a diagnosis of hypertension and diabetes mellitus. He was brought from his nursing facility yesterday with a concern of mental status changes. On arrival to the Emergency Room on 06/19, the patient's creatinine was mildly elevated at 1.8, which is his baseline. This continued to deteriorate and peaked at 2.3 as of yesterday. He also was hypernatremic. He has hypokalemia. The patient was admitted to the Intensive Care Unit for further evaluation and management. He has numerous medication listed on his medications list that might be contributing to his mental status changes. From the renal perspective, as I stated above, the patient carries a diagnosis of chronic kidney disease with his baseline fluctuating anywhere from 1.7-2.0. PAST MEDICAL HISTORY: 1. Hypertension. 2. Right cerebrovascular accident. 3. Obstructive sleep apnea. 4. Diabetes mellitus. 5. Hyperlipidemia. 6. Remote history of bilateral lower extremity wound. 7. Chronic kidney disease. 8. Clostridium difficile. 9. History of dialysis dependence, back in 2017. ALLERGIES: LISTED SULFA AND TRIMETHOPRIM. MEDICATIONS: Obtained from the medical charts; 1. Loratadine. 2. Flomax. 3. Digoxin. 4. Carvedilol. 5. Diltiazem. 6. Morphine. 7. Lorazepam. [facility] [address] [place] [address] CONSULTATION Name: DEX BLACK Room #: 246-P [facility] [place] IN ..#: [id number] Admission: 06/19/20 Attend Phys: Brian Zhao MD Discharge: Date of : 55 Report #: [id number] 8. Insulin. FAMILY HISTORY: Significant for hypertension. REVIEW OF SYSTEMS: GENERAL: No fever or chills. CARDIOVASCULAR: No chest pain or shortness of breath. PULMONARY: No cough or hemoptysis. GASTROINTESTINAL: No nausea or vomiting. GENITOURINARY: No frequency, no urgency. NEUROLOGICAL: As per the history of present illness. PHYSICAL EXAMINATION: GENERAL: The patient is alert, awake and oriented. VITAL SIGNS: Blood pressure is 136/41. His temperature is 36.7. HEAD AND NECK: No jugular venous distention. CHEST: Decreased air entry bilaterally. CARDIOVASCULAR: No rub. ABDOMEN: Soft, morbidly obese. LOWER EXTREMITIES: Chronic venous stasis changes. LABORATORY VALUES: Sodium is 148, potassium is 3.1, chloride is 110, BUN is 34, creatinine is 2.0. ASSESSMENT/IMPRESSION/PLAN: 1. Acute kidney injury, resolved. 2. Chronic kidney disease with a baseline creatinine of around 2.0, the patient is at his baseline. 3. Mental status changes due to polypharmacy. This is being addressed by primary team. 4. The patient's creatinine is back to his usual baseline. He is developing hypernatremia and will need some free water given his significant urine output in the last 3 days. 5. The main problem of this patient is polypharmacy with many narcotics and sedatives and hypnotics along with neuroleptics contributing to his mental status. Those are being addressed by the primary team. Hopefully within the next 24 hours, his electrolytes and renal function will stabilize and be back to his usual baseline. By: [id number] Korey Barry MD /nt
[2020-06-19 15:54] VITALS: BP 119/100
[~2020-06-19 15:54] MED LIST changes: +ANBESOL9 GM TOP; +CELEXA20 MG PO; -CELEXA40 MG PO; +DEMADEX20 MG PO; +IRON325 PO; +MERREM1 GM IV; +POTASSIUM20 PO; +PROBIOTIC1 EAC1 PO; +TUMS PO; +TYLENOL325 MG PO; +UNICOMPLEX M TA1 TA1 PO; +VITAMINC500 PO
[2020-06-19] MEDS ORDERED: BUSPIRONE HCL5 GM MC (16:04)
[2020-06-19] MEDS ORDERED: COLACE100 MG PO (16:05)
[2020-06-19] MEDS ORDERED: CHILDREN'S ZYRT10 M1 PO (16:05)
[2020-06-19] MEDS ORDERED: DULERA 200 MCG/13 GM INH (16:06)
[2020-06-19] MEDS ORDERED: DIGITEK125 MC2 PO (16:06)
[2020-06-19] MEDS ORDERED: FLONASE 0.05%50 MCG NARES (16:08)
[2020-06-19] MEDS ORDERED: EUCERIN ADVANCE85 GM TOP (16:08)
[2020-06-19] MEDS ORDERED: ALBUTEROL2.5 MG/31 INH (16:09)
[2020-06-19] MEDS ORDERED: CULTURELLE KID1 EAC1 PO (16:09)
[2020-06-19] MEDS ORDERED: ALMACONE-2 LIQ355 ML PO (16:10)
[2020-06-19] MEDS ORDERED: ATIVAN0.5 M1 PO (16:11)
[2020-06-19] MEDS ORDERED: BENADRYL25 MG PO (16:12)
[2020-06-19] MEDS ORDERED: HUMALOG100 UNIT/1 SUBQ (16:14)
[2020-06-19] MEDS ORDERED: HYDROCODON-ACE1 EAC7 PO (16:14)
[2020-06-19] MEDS ORDERED: MILK OF MA400 MG/5 M PO (16:16)
[2020-06-19] MEDS ORDERED: LANTUS SUBQ (16:16)
[2020-06-19] MEDS ORDERED: MSL20MG/ML PO (16:17)
[2020-06-19] MEDS ORDERED: MORPHINE SU0.2 MG/ML PO ×2 (16:18→16:19)
[2020-06-19] MEDS ORDERED: MORPHINE SU2 MG/1 M1 PO (16:21)
[2020-06-19] MEDS ORDERED: UNICOMPLEX M TA1 TA1 PO (16:21)
[2020-06-19] MEDS ORDERED: ONDANSETRON ODT4 MG PO (16:22)
[2020-06-19] MEDS ORDERED: NYSTATIN1 EA10 TOP (16:22)
[2020-06-19] MEDS ORDERED: KLOR-CON 10 ER10 MEQ PO (16:24)
[2020-06-19 16:32] LABS: URINE BLOOD 1+ (Negative); URINE CLARITY CLEAR; URINE COLOR YELLOW; URINE GLUCOSE-RANDOM* NEGATIVE (Negative); URINE KETONES NEGATIVE (Negative); URINE LEUKOCYTES-REFLEX 3+ (Negative); URINE NITRITE-REFLEX POSITIVE (Negative); URINE PROTEIN (DIPSTICK) 2+ (Negative); URINE SPECIFIC GRAVITY 1.015 (1.005-1.035)
[2020-06-19 16:35] LABS: ICTOTEST (BILI CONFIRMATORY) Negative (Negative); URINE BILIRUBIN NEGATIVE (Negative)
[2020-06-19 16:43] LABS: SQUAMOUS None Seen /LPF (0-3)
[2020-06-19 16:44] LABS: BACTERIA-REFLEX >30 Many /HPF (None Seen); CASTS None Seen /LPF (None Seen); CRYSTALS None Seen /LPF (None Seen); MUCUS 0-3 Light strn/LPF (None Seen); URINE RBC None Seen /HPF (0-2); URINE WBC-REFLEX >25 Many /HPF (0-5)
[2020-06-19 17:28] LABS: ABSOLUTE NEUTROPHILS 5.8 thou/uL (1.4-8.2); BASOPHILS 0.2 % (0.0-2.0); HEMATOCRIT 29.3 % (42.0-52.0); HEMOGLOBIN 9.6 gm/dL (14.0-18.0); LYMPHOCYTES 8.9 % (24.0-44.0); MCH 30.4 pg (26.0-34.0); MCHC 32.8 g/dL (28.0-37.0); MCV 92.4 fL (80.0-100.0); MONOCYTES 10.6 % (1.0-8.0); PLATELET COUNT 206 thou/uL (150-400); POLYS 78.3 % (36.0-66.0); RBC 3.17 mil/uL (4.50-6.00); RDW 16.5 % (10.5-14.5); WBC 7.5 thou/uL (4.0-11.0)
--- NOTE | 2020-06-19 17:32 | NUR ---
A #4F POWER MIDLINE WAS PLACED PER HOSPITAL POLICY. LINE WAS TRIMMED TO 20CM AND ADVANCED WITHOUT DIFFICULTY. LINE SECURED AND RELEASED FOR USE
[2020-06-19 17:36] LABS: ANION GAP 4 mmol/L (7-16); BUN 22 mg/dL (7-18); CALCIUM 8.8 mg/dL (8.5-10.1); CHLORIDE 104 mmol/L (98-107); CO2 37 mmol/L (21-32); CREATININE 1.8 mg/dL (0.7-1.3); GLUCOSE 186 mg/dL (74-106); POTASSIUM 3.8 mmol/L (3.5-5.1); SODIUM 145 mmol/L (136-145)
[2020-06-19 17:49] LABS: ALBUMIN 2.7 g/dL (3.4-5.0); SGOT 25 U/L (15-37); SGPT 42 U/L (16-63); TOTAL BILIRUBIN 0.6 mg/dL (0.2-1.0); TOTAL PROTEIN 6.6 g/dL (6.4-8.2); TROPONIN-I <0.06 ng/mL (<0.06)
[2020-06-19 17:55] LABS: BE(vivo) 7.7 mmol/L (-2 to +3); HCO3 32.6 mmol/L (22.0-26.0); PCO2 46.5 mmHg (35.0-45.0); PO2 173.4 mmHg (80.0-100.0); pH 7.464 (7.360-7.450); sO2 99.2 % (92.0-98.0)
--- NOTE | 2020-06-19 21:52 | NUR ---
Talked with GUS Rocha at Pt's facility who will fax med list
[2020-06-19] MEDS ORDERED: DIGOXIN0.125 MG/2 PO (23:32)
[2020-06-19] MEDS ORDERED: TESSALON PERLE100 M1 PO (23:41)
[2020-06-20] VITALS (8 sets, daily range): BP systolic 116–158; BP diastolic 60–93
--- NOTE | 2020-06-20 04:32 | NUR ---
Per tanbark laborer, covid swab done on 06/19 at 1555hrs has a cycle threshold of 36.8. PT REPORTEDLY COVID POSITIVE 02/04/2020.
--- NOTE | 2020-06-20 05:28 | NUR ---
PT ARRIVED FROM ER VIA BED, PLACED IN ROOM 351. PT DROWSY BUT ABLE TO STATE HIS NAME ACCURATELY AND RECOGNIZE THAT HE IS IN THE "HOSPITAL." THE MORNING PROGRESSED HE HAS BECOME MORE AWAKE, EVEN ASKING "IS ANYONE GOING TO TELL ME HOW I GOT HERE." INITIAL ORAL TEMP WAS 99.5. NOTED BRITTON WITH OLIVIA CLOUDY URINE WITH SEDIMENT PRESENT. SEE PREVIOUS NOTE ABOUT COVID SWAB CYCLE THRESHOLD. ORDERS IN PROGRESS.
[2020-06-20 07:09] LABS: HEMOGLOBIN 8.9 gm/dL (14.0-18.0); MCH 30.7 pg (26.0-34.0); MCHC 32.9 g/dL (28.0-37.0); MCV 93.5 fL (80.0-100.0); RBC 2.88 mil/uL (4.50-6.00); RDW 16.7 % (10.5-14.5); WBC 5.8 thou/uL (4.0-11.0)
[2020-06-20 07:15] LABS: CALCIUM 8.4 mg/dL (8.5-10.1); CREATININE 1.8 mg/dL (0.7-1.3); POTASSIUM 3.7 mmol/L (3.5-5.1)
--- NOTE | 2020-06-20 15:42 | NUR ---
RN ASSUMED PT'S CARE AT 0700AM, PT IS A&OX2 ( PERSON AND PLACE), PT CAN FOLLOW COMMANDS, PT IS AGITATION AT TIME, PT IS ON O2 4-5L/MIN/NC, PT 'S VS ARE STABLE, PT HAS ID CONSULT, PT STARTS IV ABX , RN HAS REORTED TO DR CHANCE PT HAS DIFFICULT TIME TO DRINKING, SO KEEP NPO UNTILL ST TO SEE THIS PT.
--- NOTE | 2020-06-20 16:38 | HC ---
[facility] [place] [address] CONSULTATION Name: DEX BLACK Room #: 351-P ADM IN M.R.#: [id number] Admission: 06/19/20 Attend Phys: Brian Zhao MD Discharge: Date of : 55 Report #: [id number] THIS REPORT FOR: cc: Robinson Ha MD, Shyam MD Barry, Joseph W. MD ~ DATE OF SERVICE: 06/20/2020 INFECTIOUS DISEASE CONSULTATION ATTENDING PHYSICIAN: Dr. Brian Zhao REASON FOR EVALUATION: Complicated urinary tract infection, complicated by worsening encephalopathy. The patient has got significant disease burden. HISTORY OF PRESENT ILLNESS: Chart reviewed, the patient examined. This is a 64-year-old with morbid obesity, COPD and cardiomyopathy with congestive heart failure, previous stroke, who apparently lives in a facility, was found to have worsening mental status changes. He was referred to Emergency Room. Initial evaluation noted marked pyuria and bacteriuria. Chest x-ray showed severe cardiomegaly without acute inflammatory process. Lactic acid was 1.0. ABGs: pH 7.464, pCO2 of 465, pO2 173 on 6 liters. Coronavirus PCR was positive. It is notable that he had tested positive back in the fall of 2019 as well. Blood cultures collected at time of admission are sterile thus far. He is really quite encephalopathic. It is difficult to follow his train of thought. He does admit to significant GI related complaints, but he has not had a bowel movement and is obstipated as well. He does complain of dyspnea and is maintained on supplemental oxygen at 3.5-4 liters per minute. He was given a single dose of levofloxacin. ALLERGIES: LISTED TO BACTRIM. CURRENT MEDICATIONS: Include tamsulosin, montelukast, citalopram, diltiazem CD, digoxin, insulin lispro, insulin glargine, hydrocodone. PAST MEDICAL HISTORY: As described above, cardiomyopathy with history of CHF, COPD, hypertension, morbid obesity, previous stroke, right sided paresis, obstructive sleep apnea, recurrent pneumonitis, chronic respiratory failure, diabetes mellitus, hyperlipidemia, chronic atrial fibrillation, anemia, history of C. diff, thrombocytopenia, COVID positive in 01/2020, psoriasis, anxiety. SOCIAL HISTORY: Former smoker, past ethanol, no illicit drug use recently. FAMILY HISTORY: Noncontributory. [facility] [address] [place] [address] CONSULTATION Name: DEX BLACK Room #: 351-P [facility] IN .R.#: [id number] Admission: 06/19/20 Attend Phys: Brian Zhao MD Discharge: Date of : 55 Report #: [id number] REVIEW OF SYSTEMS: Not obtainable reliably. PHYSICAL EXAMINATION: GENERAL: He is morbidly obese. He is quite confused, chronically ill appearing, moderate distress. VITAL SIGNS: Temperature 98.8, pulse 76, respirations 19, blood pressure 152/60. SKIN: Warm, dry, no rashes. HEENT: Nasal cannula in place. NECK: Supple. Extraocular muscles are intact. LUNGS: Diminished due to his size. Few scattered crackles. HEART: Distant as well. Irregular. I do not appreciate a murmur. ABDOMEN: Obese. He has got a large ventral hernia, is nontender, no peritoneal signs. GENITOURINARY AND RECTAL: Deferred. LABORATORY DATA: Blood cultures sterile thus far. Electrolytes from today, sodium 146, potassium 3.7, chloride 107, bicarbonate is 35, anion gap of 4, BUN and creatinine 21 and 1.8, glucose of 197. Estimated GFR of 38. CBC: White count of 5.8, H and H 8.9 and 27.0, platelets of 187. Coronavirus PCR was positive. ABGs described above, pH 7.464, pCO2 of 465, pO2 of 173.4 on 6 liters. Liver functions were otherwise unremarkable. Albumin of 2.7, total protein 6.6. ProBNP of 2081. Lactic acid 1.0. Urinalysis is greater than 25 white cells, 3+ leukocytes, greater than 30 bacteria. ASSESSMENT AND PLAN: Complicated urinary tract infection in patient that is really at risk for multifocal infection, can entirely exclude other sites and I think is reasonable to continue broad-spectrum antibiotic empirically is notable in the history. He has had recurrent pneumonitis and certainly at risk of aspiration given his altered mental status at this point, likely difficulty in clearing secretions. We will introduce incentive spirometry in terms of the COVID. I think it is not likely playing a factor at this point, would not pursue further therapy for that. He remains quite tenuous at this point. We will continue to monitor expectantly and high risk for complications. <ELECTRONICALLY SIGNED> By: Juan Guzman MD 06/20/20 [id number] Juan Guzman MD /nt
[2020-06-21] VITALS (13 sets, daily range): BP systolic 102–190; BP diastolic 33–87
--- NOTE | 2020-06-21 05:12 | NUR ---
PROGRESS PT A/O X4, VERY ANXIOUS CALLS DESK EVERY FEW MINUTES. DOES NOT WANT TO BE ALONE. ON 5 LITERS O2 VIA NC SATS IN MID 90'S LUNGS DIMINISHED. TELE INTACT READING SR WITH RATES IN 80'S. NPO D/T DIFFICULTY SWALLOWING ORAL CARE PROVIDED. PT REPORTED STUFFY NOSE AND FLONASE ORDER OBTAINED, CLEANED NOSE WITH SALINE AND APPLIED SOME LUBRICANT WITH EFFECT. REPOSITIONED FREQUENTLY PATIENT ON AN LOW AIR LOSS BARIATRIC BED ABLE TO TURN SELF. HAD A SMEAR OF BM AND BRITTON DRAINING DARK YELLOW URINE. IVF'S INFUSING AT 75CC'S/HR PER ORDER TOLERATING WELL.
--- NOTE | 2020-06-21 08:27 | NUR ---
PT CLEARED FROM ISOLATION PER PA MARSHALL.
[2020-06-21 10:40] LABS: ABSOLUTE NEUTROPHILS 4.5 thou/uL (1.4-8.2); BASOPHILS 0.6 % (0.0-2.0); EOSINOPHILS 1.9 % (0.0-3.0); HEMATOCRIT 28.1 % (42.0-52.0); LYMPHOCYTES 9.7 % (24.0-44.0); MCH 30.1 pg (26.0-34.0); MONOCYTES 9.1 % (1.0-8.0); PLATELET COUNT 208 thou/uL (150-400); POLYS 78.7 % (36.0-66.0); RBC 2.99 mil/uL (4.50-6.00); WBC 5.8 thou/uL (4.0-11.0)
[2020-06-21 11:10] LABS: CALCIUM 8.3 mg/dL (8.5-10.1); CREATININE 1.7 mg/dL (0.7-1.3); POTASSIUM 3.8 mmol/L (3.5-5.1)
--- NOTE | 2020-06-21 11:51 | NUR ---
THIS RN SPOKE WITH PT DPOA/SISTER ANA LUISA. SHE STATES PT HAS NOT BEEN WEARING FACILITY BIPAP HE IS SUPPOSED TO. THIS RN WILL UPDATE PHYSICIAN.
--- NOTE | 2020-06-21 12:36 | NUR ---
PATIENT CONTINUES TO PULL OFF NC. PT DESATS TO MID 60'S W/O OXYGEN SUPPLEMENT. THIS RN CONTINUES TO REMIND PT TO NOT PULL OFF NC. OXYGEN REAPPLIED. SATS IN LOW 90'S WITH 9L OXYGEN
--- NOTE | 2020-06-21 13:12 | EKG ---
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 : 1955 Requested By: Sudeep Ohara Order Number: [id number] MD: Trenton Moulton Measurements Intervals [place] Rate: 92 P: ME: QRS: -28 QRSD: 133 T: 126 QT: 377 QTc: 467 Interpretive Statements Atrial fibrillation LVH with IVCD and secondary repol abnrm Compared to ECG 05/23/2018 11:10:10 Intraventricular conduction delay now present Left ventricular hypertrophy now present Ventricular premature complex(es) no longer present Electronically Signed On 06-21-2020 13:12:22 RUBBER STAMP DIE INSPECTOR by Trenton Moulton [email or web address] <ELECTRONICALLY SIGNED> By: Trenton Moulton MD 06/21/20 1312 [id number] Trenton Moulton MD /EPI
--- NOTE | 2020-06-21 16:14 | NUR ---
INITIAL ASSESSMENT: MURIEL reviewed chart and spoke with nursing and attending physician. Pt was admitted from [facility] due to AMS/UTI. Pt tested positive for COVID on 02/04/2020 at his facility. Pt had positive test upon admission. Pt is not in Enhanced Isolation. Pt is afebrile and on 8L of O2. Pt is on IV abx. Pulmonary consulted. Pt with hx of CHF/COPD/CVA. MURIEL spoke with Beronica at [facility] who states pt is penitentiary care and is [place] Medicaid pending. Pt had been living at [facility] and had [place] Medicaid. Pt transferred to [facility] when [facility] closed. MURIEL spoke with pt's sister, Heidi, via phone. Introduced role of MURIEL. Pt was on service with [facility] prior to admission. Pt/family revoked hospice services for pt to come to the hospital. Per Heidi, plan is for pt to return to [facility] and readmit to [facility]. Pt's sister states she checked on pt's [place] Medicaid this morning and it is still pending. MURIEL faxed clinical info to [facility] for review. Updated Beronica, admissions liaison. MURIEL contacted [facility] and spoke with Alfonso. Requested [facility] to send over hospice revocation ppwk to place on pt's chart. Info received and faxed to [facility] to scan into pt's medical record. MURIEL updated [facility] liaison. MURIEL is following to assist as needed with discharge planning.
[2020-06-21 19:32] LABS: BE(vivo) 3.5 mmol/L (-2 to +3); HCO3 29.1 mmol/L (22.0-26.0); PO2 107.9 mmHg (80.0-100.0); pH 7.391 (7.360-7.450); sO2 97.8 % (92.0-98.0)
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
--- NOTE | 2020-06-21 21:44 | NUR ---
Pt transferred to ICU 246 from 3 on Bariatric bed with Bipap. Pt has been pulling on lines and not wanting to put his BIPAP on. Pt is placed on precedex and is tolerating it with occassionally pulling off his bipap. RN redirecting and helping him placed his BIpap on again several times. Pt is currently sleeping and wearing BIPAP. sats in the upper 90s with decreased work of breathing. continue to monitor
[2020-06-22] VITALS (49 sets, daily range): BP systolic 118–191; BP diastolic 31–77
[2020-06-22 05:53] LABS: HEMOGLOBIN 9.1 gm/dL (14.0-18.0); MCH 30.2 pg (26.0-34.0); MCHC 31.5 g/dL (28.0-37.0); MCV 95.9 fL (80.0-100.0); RBC 3.02 mil/uL (4.50-6.00); RDW 16.5 % (10.5-14.5); WBC 4.4 thou/uL (4.0-11.0)
[2020-06-22 06:19] LABS: CALCIUM 8.5 mg/dL (8.5-10.1); POTASSIUM 4.3 mmol/L (3.5-5.1)
--- NOTE | 2020-06-22 10:38 | 2DMMODE ---
[facility] [address] [place] [address] 2 D/M-MODE ECHOCARDIOGRAM Name: DEX BLACK Room #: 246-P ADM IN M.R.#: [id number] Admission: 06/19/20 Attend Phys: Brian Zhao MD Discharge: Date of : 55 Report #: [id number] THIS REPORT FOR: cc: Robinson Ha MD, Shyam MD Lammoglia, Francisco J. MD ~ APPROVED REPORT Study performed: 06/22/2020 09:31:30 EXAM: Comprehensive 2D, Doppler, and color-flow Echocardiogram Patient Location: ICU Room #: 246 Status: routine BSA: 2.98 HR: 53 bpm BP: 139/45 mmHg Rhythm: Atrial Fibrillation Other Information Study Quality: Technically Limited Technically limited study due to body habitus, lung disease, inability to position patient, patient on ventilator. Indications Congestive Heart Failure Diabetes Atrial Fibrillation Dyspnea Hypertension/HDD Morbid obesity Echo Enhancing Agent Indication: Endocardial border delineation Agent(s) / Amount(s) Used: Optison 3 cc 2D Dimensions IVSd: 11.04 (7-11mm) LVOT Diam: 24.28 (18-24mm) LVDd: 61.66 mm PWd: 11.91 (7-11mm) Ascending Ao: 38.41 (22-36mm) LVDs: 45.53 (25-40mm) Left Atrium: 49.06 (27-40mm) Aortic Root: 40.29 mm [facility] [address] [place] [address] 2 D/M-MODE ECHOCARDIOGRAM Name: DEX BLACK Room #: 246-P ADM IN M.R.#: [id number] Admission: 06/19/20 Attend Phys: Brian Zhao MD Discharge: Date of : 55 Report #: [id number] Tricuspid Valve TR Peak Robby.: 3.90 m/s TR Peak Gr.: 61.02 mmHg PA Pressure: 71.00 mmHg Left Ventricle Left ventricle is dilated. There is borderline left ventricular wall thickness. Left ventricular systolic function is borderline. LVEF is 50%. This study is not technically sufficient to allow evaluation of the LV diastolic function. Right Ventricle The right ventricle is normal size. The right ventricular systolic function is normal. Atria Left atrium is dilated. Right atrium is borderline dilated. Aortic Valve The aortic valve is normal in structure. The Aortic valve is sclerotic. No aortic regurgitation is present. There is no aortic valvular stenosis. Mitral Valve The mitral valve is normal in structure. Mild mitral regurgitation. No evidence of mitral valve stenosis. Tricuspid Valve The tricuspid valve is normal in structure. There is mild to moderate tricuspid regurgitation. Estimated PAP 71 mmHg. There is severe pulmonary hypertension. Pulmonic Valve The pulmonary valve is normal in structure. There is no pulmonic valvular regurgitation. Great Vessels The aortic root is normal in size. The inferior vena cava is not well visualized. Pericardium There is no pericardial effusion. <Conclusion> Left ventricle is dilated. [facility] [address] [place] [address] 2 D/M-MODE ECHOCARDIOGRAM Name: DEX BLACK Room #: 246-P ADM IN M.R.#: [id number] Admission: 06/19/20 Attend Phys: Brian Zhao MD Discharge: Date of : 55 Report #: [id number] There is borderline left ventricular wall thickness. LVEF is 50%. Left atrium is dilated. Right atrium is borderline dilated. The aortic valve is normal in structure. The Aortic valve is sclerotic. The mitral valve is normal in structure. Mild mitral regurgitation. The tricuspid valve is normal in structure. There is mild to moderate tricuspid regurgitation. Estimated PAP 71 mmHg. There is severe pulmonary hypertension. The pulmonary valve is normal in structure. There is no pericardial effusion. <ELECTRONICALLY SIGNED> By: Mervin Raza MD 06/22/20 1038 1038 1038 Mervin Raza MD /INF
--- NOTE | 2020-06-22 14:14 | NUR ---
SPOKE WITH PT'S SISTER, ANA LUISA LANDAVERDE ON THE PHONE. UPDATE GIVEN. TEACHING REGARDING THE NECESSITY OF RESTRAINT FOR PROTECTION OF LINES/TUBES, BENEFITS AND RISKS OF USING RESTRAINTS, AND LEAST RESTRICTIVE METHOD UTILIZED. ANA LUISA VERBALIZED UNDERSTANDING.
--- NOTE | 2020-06-22 18:03 | NUR ---
PT ON BIPAP, NEEDING PRECEDEX AND RESTRAINTS TO MAINTAIN APPROPRIATE LEVEL OF CARE. DR. CAVAZOS CONSULTED FOR POSSIBLE PALLIATIVE CARE. PT'S SISTER, ANA LUISA LANDAVERDE, IS THE POINT OF CONTACT FOR DECISION MAKING. PT IS NPO WHILE ON BIPAP. URINE OUTPUT ADEQUATE. IV FLUIDS ORDERED DUE TO NPO STATUS. LASIX ALSO ORDERED DAILY. OVERALL POOR PROGNOSIS. PT NOT PROGRESSING TOWARD GOALS AT THIS TIME.
[2020-06-23] VITALS (51 sets, daily range): BP systolic 122–189; BP diastolic 43–102
[2020-06-23 04:55] LABS: HEMATOCRIT 27.8 % (42.0-52.0); HEMOGLOBIN 8.8 gm/dL (14.0-18.0); MCH 29.9 pg (26.0-34.0); MCHC 31.8 g/dL (28.0-37.0); MCV 93.9 fL (80.0-100.0); RBC 2.96 mil/uL (4.50-6.00); RDW 17.2 % (10.5-14.5); WBC 4.9 thou/uL (4.0-11.0)
[2020-06-23 05:42] LABS: CALCIUM 8.3 mg/dL (8.5-10.1); CREATININE 2.3 mg/dL (0.7-1.3); POTASSIUM 4.2 mmol/L (3.5-5.1)
[2020-06-23 11:13] LABS: BE(vivo) 3.8 mmol/L (-2 to +3); HCO3 28.9 mmol/L (22.0-26.0); PCO2 46.1 mmHg (35.0-45.0); PO2 85.6 mmHg (80.0-100.0); pH 7.415 (7.360-7.450); sO2 96.5 % (92.0-98.0)
--- NOTE | 2020-06-23 18:36 | NUR ---
ASSUMED CARE 0700. PT NOT ORIENTED TO SELF AND AGITATED. PT CALM ORENTED X3 AND 1200 AND 1600 ASSESSMENT. PO MEDS WITHELD UNTIL SPEECH EVAL. NECTAR THICK LIQUID. RENAL CONSULTED FOR INCREASING CREATININE. REMAINS ON PRECEDEX FOR AGITATIAON. MORE COOPERATIVE WITH NURSING CARE
[2020-06-24] VITALS (33 sets, daily range): BP systolic 100–172; BP diastolic 39–93
[2020-06-24 03:30] LABS: CALCIUM 8.2 mg/dL (8.5-10.1)
[2020-06-24 03:47] LABS: POTASSIUM 3.1 mmol/L (3.5-5.1)
[2020-06-24] MEDS ORDERED: NORCO5 PO (15:10)
[2020-06-24] MEDS ORDERED: NOVOLOG100 UNIT/1 SUBQ (15:12)
[2020-06-24] MEDS ORDERED: PROTONIX40 M2 PO (15:16)
[2020-06-24] MEDS ORDERED: EVAC-U-GEN8.6 MG PO (15:17)
[2020-06-24] MEDS ORDERED: PYRIDIUM100 M1 PO (15:17)
[2020-06-24] MEDS ORDERED: XARELTO20 MG PO (15:17)
[2020-06-24] MEDS ORDERED: TRIAMCINOLONE 080 G3 TOP (15:18)
[2020-06-24] MEDS ORDERED: ZINC-22050 MG PO (15:19)
--- NOTE | 2020-06-24 15:38 | NUR ---
updates faxed to op center, fax # [phone] to [facility]. conformation received. cm spoke with [facility] to let her know dcp back to op center.
--- NOTE | 2020-06-24 16:16 | NUR ---
PT'S SISTER AND DPOA FOR HEALTHCARE, ANA LUISA, CAME TO VISIT TODAY. UPDATED ON PT CONDITION AND PLAN OF CARE. QUESTIONS ANSWERED. REASSURANCES AND EMOTIONAL SUPPORT PROVIDED.
--- NOTE | 2020-06-24 17:11 | NUR ---
PT OFF PRECEDEX. ALERT AND ORIENTED ALMOST COMPLETELY AT THIS TIME. O2 4L/MIN VIA NC MOST OF THE DAY. SISTER, ANA LUISA, VISITED FOR A BRIEF TIME TODAY. UPDATED ON PT CONDITION AND PLAN OF CARE. OVERALL, PT PROGRESSING TOWARD GOALS.
[2020-06-25] VITALS (11 sets, daily range): BP systolic 120–186; BP diastolic 56–87
--- NOTE | 2020-06-25 03:14 | NUR ---
ASSUMED PT CARE AT 1900. VSS. PT A&0x4. PLEASANT. PT HAD A RESTED NOC, WORE BIPAP THROUGH THE NOC, NO COMPLAINTS. BM THIS SHIFT. PT HAD AN UNEVENTFUL NOC, WILL CONTINUE TO MONITOR
[2020-06-25 05:14] LABS: ALBUMIN 2.6 g/dL (3.4-5.0); CALCIUM 8.2 mg/dL (8.5-10.1); CREATININE 1.8 mg/dL (0.7-1.3); PHOSPHORUS 3.2 mg/dL (2.5-4.9)
--- NOTE | 2020-06-25 14:01 | NUR ---
discussed with hospitalist, possible will be ready to dc back to op center over the weekend. cm spoke with sister lo agree with dcp"ok when he gets back he will be going back on hospice at the facility"/lo. bedside nurse call [facility] at [phone], fax dc orders to [phone] he will need to be transported via non-er [facility] rt bariatric and unable to support his body. [facility] form on chart. bedside nurse to call report to [phone].
--- NOTE | 2020-06-25 16:08 | NUR ---
Patient transfered via bed to room 459 with assistance of nursing students and [facility] staff. He was greeted by RN for continuation of care.
--- NOTE | 2020-06-25 16:12 | NUR ---
PATIENT ARRIVED TO UNIT ON BARIATRIC BED W RN AND INCIDENT COMMANDER. VSS. PATIENT ORIENTED TO ROOM AND INTRODUCED TO NURSING STAFF. REPORT ENDORSED/REINFORCED FROM ICU NURSE TO THIS NURSE. PATIENT VOICES NO NEEDS OR DISCOMFORT AT THIS TIME. WILL CONTINUE TO MONITOR.
--- NOTE | 2020-06-26 02:38 | NUR ---
PT IS A/OX 4 AND IS ON BEDREST. 4 LITERS OF O2 AND USES BIPAP AT NOC. AFIB ON THE MONITOR. CATHETER IN PLACE DRAINING YELLOW URINE. PT C/O OCCASIONAL PAIN IN CATHETER SITE. SCRODUM APPEARS BRUISED. NEW STATLOCK PLACED TO ASSURE CATHETER WAS NOT PULLING ON PT. FALL PRECAUTIONS IN PLACE, CALL LIGHT IS WITHIN REACH.
[2020-06-26 04:56] LABS: ALBUMIN 2.4 g/dL (3.4-5.0); CREATININE 1.8 mg/dL (0.7-1.3); PHOSPHORUS 2.7 mg/dL (2.5-4.9)
[2020-06-26 05:05] LABS: POTASSIUM 3.1 mmol/L (3.5-5.1)
[2020-06-26 07:36] VITALS: BP 155/91
--- NOTE | 2020-06-26 10:42 | NUR ---
Received awake on bed. Due medications given as prescribed, able to swallow meds w/o difficulty. On Bipap. On telemetry; no complains and signs of chest pain, crushing sensation and heaviness. Assisted in ADLs. On carb controlled diet- tolerating well; no nausea, no vomiting and no abdominal pain noted; assisted in setting up meals. On blood sugar monitoring, taken and recorded accordingly; with sliding scale insulin ordered- given as prescribed. With najera in place- pt complaining of severe pain, screaming- removed as per pt's request; with scrotal edema and discoloration noted- Dr Romero informed. Incontinent of bowel and bladder, checked freqently and changed as needed. Obed SL at L Fa- on IV antibiotics; onetime order of IVF of Dr Brown infused as prescribed. With generalized edema noted. Possibe discharge today- a/w physicians rounds and orders. Falls bundle in place. Pt on bariatric bed, refusing turns at times. To continue monitoring patient.
[2020-06-26 15:18] VITALS: BP 145/78
[2020-06-26 20:31] VITALS: BP 156/64
[2020-06-27 04:31] LABS: ALBUMIN 2.4 g/dL (3.4-5.0); CALCIUM 7.7 mg/dL (8.5-10.1); CREATININE 1.8 mg/dL (0.7-1.3); PHOSPHORUS 3.5 mg/dL (2.5-4.9); POTASSIUM 3.5 mmol/L (3.5-5.1)
--- NOTE | 2020-06-27 08:12 | NUR ---
PT LYING IN BED. DENIES PAIN. RESTING COMFORTABLY. NO NEEDS VOICED. CALL LIGHT WITHIN REACH. FREQUENT OBSERVATION.
--- NOTE | 2020-06-27 12:40 | NUR ---
ASSUMED PT CARE THIS AM. PT VSS, A&OX4. PT PLEASANT AND MAKES NEEDS KNOWN. PATIENT REMAINS INCONTINENT, BELLA CARE GIVEN THIS SHIFT. PT ABLE TO HELP TURN SELF. ON A LOW AIRLOSS BED. RIGHT HAND CONTRACTED. ON 4 L NC. BLOOD SUGAR BEING MONITORED, HELD BOTH INSULINS FOR BREAKFAST DUE TO BLOOD SUGAR OF 74. GAVE LONG ACTING INSULIN PRIOR TO LUNCH WITH A HIGHER BLOOD GLUCOSE. TAKES MEDS WHOLE WITHOUT ISSUE. IV PATENT. PT ON TELE. FALL PRECAUTIONS IN PLACE, MAKES NEEDS KNOWN.
[2020-06-27 19:03] VITALS: BP 130/60
[2020-06-28 05:24] LABS: ALBUMIN 2.4 g/dL (3.4-5.0); CALCIUM 7.9 mg/dL (8.5-10.1); CREATININE 1.4 mg/dL (0.7-1.3); PHOSPHORUS 3.7 mg/dL (2.5-4.9)
[2020-06-28 05:27] LABS: POTASSIUM 4.6 mmol/L (3.5-5.1)
--- NOTE | 2020-06-28 06:05 | NUR ---
ASSUME CARE 1900. PT/VITALS STABLE. DENIES ANY PAIN. POOR TOLERANCE WITH ACTIVITY. ASSESSMENT CHARTED. PROGRESSING MODERATELY WITH POC. SAFIB ON MONITOR WITH RATE CONTROLLED. PLAN IS TO CONTINUE TO TREAT PT WITH ABX. NO DISTRESS NOTED. WILL CONTINUE TO MONITOR AND FOLLOW WITH POC
[2020-06-28 08:49] VITALS: BP 146/56
[2020-06-28] MEDS ORDERED: LEVOFLOXACIN500 MG PO (11:48)
[2020-06-28] MEDS ORDERED: LASIX 40 MG TAB40 MG PO (11:51)
--- NOTE | 2020-06-28 12:33 | NUR ---
CARE TEAM INDICATED THAT PT IS MEDICALLY STABLE TO DC BACK TO OP CENTER THIS DAY. CM MET WITH PT AT BEDSIDE THIS DAY AND HE HAD HIS SISTER/DPOA ON THE PHONE. THEY BOTH CONFIRMED PREFERENCE FOR PT TO RETURN TO OP CENTER AND ADMIT [facility]. CM NOTIFIED PHYSICIAN OF PREFERENCE. CM FAXED [facility] FORM. CM AWAITING FINAL DC ORDERS TO BE ENTERED THEN TRANSPORT TO BE ARRANGED. CHART COPY ORDERD. ORDERS TO BE FAXED. CM TO FOLLOW INDICATED WITH DC PLANNING.
--- NOTE | 2020-06-28 13:40 | NUR ---
PT DISCHARGING TODAY TO OP CARE CENTER FAXED DC ORDERS/SUMMARY RECEIVED CONFIRMAITON AND LEFT MSG WITH WHITNEY IN ADM.
--- NOTE | 2020-06-28 15:41 | NUR ---
06/28/20 PATIENT DISCHARGED BACK TO FACILITY IN [place]. IV DISCONTINUED. REPORT GIVEN TO EMS. ATTEMPTED TO CALL NURSE FOR REPORT AT FACILITY BUT THEY WERE UNABLE TO TAKE REPORT AT THIS TIME. PHONE NUMBER LEFT WITH FACILITY TO CALL BACK FOR REPORT. PATIENT BELONGINGS INCLUDING CELL PHONE AND GLASSESS SENT WITH PATIENT.
== END 2020-06-28 15:00 | disposition hospice, home (50) | DRG 871 ==
LOC: ER 15:54 → EROBS 18:23 → 3W 06-20 00:35 → ICU 06-21 21:00 → 4W 06-25 15:50
PROVIDERS: Emergency Medicine; Hospitalist; Internal Medicine Pulmonary Disease; ADMIT Hospitalist; ATTEND Hospitalist
DX: A41.9 Sepsis, unspecified organism (principal); G93.41 Metabolic encephalopathy; U07.1 COVID-19; J96.21 Acute and chronic respiratory failure with hypoxia; J96.22 Acute and chronic respiratory failure with hypercapnia; N39.0 Urinary tract infection, site not specified; E87.0 Hyperosmolality and hypernatremia; I13.0 Hypertensive heart and chronic kidney disease with heart failure and stage 1 through stage 4 chronic kidney disease, or unspecified chronic kidney disease; Z68.43 Body mass index [BMI] 50.0-59.9, adult; I42.9 Cardiomyopathy, unspecified; N17.9 Acute kidney failure, unspecified; I69.351 Hemiplegia and hemiparesis following cerebral infarction affecting right dominant side; I48.21 Permanent atrial fibrillation; J44.1 Chronic obstructive pulmonary disease with (acute) exacerbation; Z16.39 Resistance to other specified antimicrobial drug; G47.33 Obstructive sleep apnea (adult) (pediatric); E78.5 Hyperlipidemia, unspecified; E11.22 Type 2 diabetes mellitus with diabetic chronic kidney disease; N18.9 Chronic kidney disease, unspecified; I50.9 Heart failure, unspecified; E66.01 Morbid (severe) obesity due to excess calories; F41.9 Anxiety disorder, unspecified; G89.4 Chronic pain syndrome; R13.10 Dysphagia, unspecified; K43.9 Ventral hernia without obstruction or gangrene; F29 Unspecified psychosis not due to a substance or known physiological condition; E87.6 Hypokalemia; I27.20 Pulmonary hypertension, unspecified; N50.89 Other specified disorders of the male genital organs; Z79.899 Other long term (current) drug therapy; Z79.4 Long term (current) use of insulin; Z88.2 Allergy status to sulfonamides; Z23 Encounter for immunization
CPT/HCPCS: 10045; 10047; 10078; 10203; 10879; 27000

== ENCOUNTER 2020-07-26 21:29 | Inpatient (IN) | payer MEDICAID ==
[~2020-07-26] VITALS: Ht 188 cm; Wt 215.0 kg
--- NOTE | ~2020-07-26 | EMS ---
[address] [address] EMS Patient Care Report Name: DEX BLACK Room #: PRE ER M.R.#: [id number] Admission: Attend Phys: Discharge: Date of : 55 Report #: [id number] THIS REPORT FOR: //name// Report Transmitted: 07/26/2020 21:30 EMS Care Summary [facility] MED-ACT Incident [id number] @ 07/26/2020 20:16 Incident Location [address] [place] [address] Patient DEX BLACK Male, 64 Years 1955 Patient Address [address] [place] [address] Patient History Congestive Heart Failure (CHF),Chronic Obstructive Pulmonary Disease (COPD),Diabetes,Hypertension (HTN),Hyperlipidemia,Gastro-Esophageal Reflux Disease (GERD),Morbid Obesity,Urinary Tract Infection (UTI),Depression,Anemia,Hypokalemia,Chronic Kidney Disease,Novel Coronavirus (COVID-19), Patient Allergies Sulfa,Trimethoprim, Patient Medications Xarelto, Gabapentin, Digoxin, Protonix, Benadryl, Ativan, Humalog, Carvedilol, Citalopram, Prednisone, Lantus, Nystatin, Albuterol, Singulair, Ondansetron, Flomax, Lasix, Colace, Hydrocodone, Morphine, Chief Complaint Trouble breathing Disposition Transported No Lights/[place] Dispatch Reason Breathing Problem Transported To [address] [address] EMS Patient Care Report Name: DEX BLACK Room #: PRE M.R.#: [id number] Admission: Attend Phys: Discharge: Date of : 55 Report #: [id number] [facility] [place] [place] Narrative Dispatched to assist 1134 on scene for a bariatric transport. Arrived to scene to find a male patient lying semi-jacob's in bed. The patient was alert and oriented, GCS 15. Complained of a fever and difficulty breathing. The patient is post-covid and developed the above symptoms. The patient is a hospice patient however is a full-code and wishes to revoke his hospice and be treated for the respiratory distress and fever. Med-Act 1134 and OP S47 on scene SALESPERSON JEWELRY and were administering oxygen via NC at 6 LPM, the patient reported this alleviated his dyspnea. ALS assessment revealed the patient is alert and oriented, GCS 15. PERRL. Lung sounds difficult to auscultate due to thick chest wall. No chest pain. Moderate dyspnea during movement and when oxygen was not connected. Abdomen distended. Extremities: right arm paralysis and contractures; bilateral lower leg edema; bilateral young pain. Skin flushed, hot, dry. Vital signs; ECG; continue oxygen; transport. The patient's condition was unchanged. The patient was moved to EMS cot via hover mat and hover monica. The patient was transported to [facility] [place] and delivered to ER. The staff met us in the ambulance parking area at [place] and we were able to move the patient from the EMS cot to the hospital bed via the hover mat. Patient care was transferred. Initial Vitals @21:10P: 114,SpO2: 89, @21:18P: 104,R: 24,BP: 133/63,Pain: 4/10,GCS: 15,SpO2: 79,Revised Trauma: 12,FL Suspected: false @21:06P: 100,R: 24,BP: 145/82,Pain: 4/10,GCS: 15,Temp: 102.1F,SpO2: 87,Revised Trauma: 12,FL Suspected: false Assessments @21:00MENTAL:Person Oriented,Time Oriented,Place Oriented,Event Oriented,SKIN:Other,HEENT:Head/Face: No Abnormalities,Neck/Airway: No Abnormalities,LUNG SOUNDS:Left Upper: Distension,Left Lower: Distension,Right Upper: Distension,Right Lower: Distension,General: No Abnormalities,ABDOMEN:Left Upper: Distension,Left Lower: Distension,Right Upper: Distension,Right Lower: Distension,General: No Abnormalities,PELVIS//GI:No Abnormalities,EXTREMITIES:Right Arm: Other,Right Arm: Paralysis,Left Arm: No Abnormalities,Left Leg: No Abnormalities,Right Leg: No Abnormalities,PULSE:Radial: 2+ Normal,NEURO:No Abnormalities, [facility] [place] [place] [address] [place] [address] EMS Patient Care Report Name: DEX BLACK Room #: PRE M.R.#: [id number] Admission: Attend Phys: Discharge: Date of : 55 Report #: [id number] Impression Acute Respiratory Distress (Dyspnea) Procedures @21:16Surgical Mask on PatientResponse: Unchanged@PTAOxygen FlowRate: 6 Device: Nasal Cannula (NC) Response: UnchangedSucceeded Timeline SALESPERSON JEWELRY,Oxygen FlowRate: 6 Device: Nasal Cannula (NC) Response: UnchangedSucceeded, 19:57,Call Received 19:57,Psap Call 20:16,Dispatched 20:19,En Route 20:31,On Scene 20:37,At Patient 21:06,BP: 145/82 M,PULSE: 100,RR: 24 R,SPO2: 87 Ox,ETCO2: ,BG: ,PAIN: 4,GCS: 15, 21:10,BP: / M,PULSE: 114,RR: R,SPO2: 89 Ox,ETCO2: ,BG: ,PAIN: ,GCS: , 21:11,Depart Scene 21:16,Surgical Mask on Patient,Response: Unchanged 21:18,BP: 133/63 M,PULSE: 104,RR: 24 R,SPO2: 79 Ox,ETCO2: ,BG: ,PAIN: 4,GCS: 15, 21:18,At Destination 21:51,Call Closed Disclaimer v1.1 Copyright 2020 [email or web address] This EMS Care Summary contains data elements from the applicable legal record (which may be displayed differently). It is designed to provide pertinent information for the following purposes: continuity of care, clinical quality, and state data reporting. The complete legal record is available to ED staff and administrators of the receiving hospital in [employer]'s Patient Tracker. All data is provided "as is."
[~2020-07-26 21:29] MED LIST changes: +ALBUTEROL2.5 MG/31 INH; +ATIVAN0.5 M1 PO; +BENADRYL25 MG PO; +BUSPIRONE HCL5 GM MC; +CHILDREN'S ZYRT10 M1 PO; +COLACE100 MG PO; +CULTURELLE KID1 EAC1 PO; +DIGITEK125 MC2 PO; +DIGOXIN0.125 MG/2 PO; +DULERA 200 MCG/13 GM INH; +EUCERIN ADVANCE85 GM TOP; +EVAC-U-GEN8.6 MG PO; +FLONASE 0.05%50 MCG NARES; +HYDROCODON-ACE1 EAC7 PO; +KLOR-CON 10 ER10 MEQ PO; +LANTUS SUBQ; +LASIX 40 MG TAB40 MG PO; +LEVOFLOXACIN500 MG PO; +MILK OF MA400 MG/5 M PO; +MORPHINE SU0.2 MG/ML PO; +MORPHINE SU2 MG/1 M1 PO; +MSL20MG/ML PO; +NORCO5 PO; +NOVOLOG100 UNIT/1 SUBQ; +NYSTATIN1 EA10 TOP; +ONDANSETRON ODT4 MG PO; +PROTONIX40 M2 PO; +PYRIDIUM100 M1 PO; +TESSALON PERLE100 M1 PO; +TRIAMCINOLONE 080 G3 TOP; +XARELTO20 MG PO; +ZINC-22050 MG PO
[2020-07-26 21:30] VITALS: BP 95/73
[2020-07-26 22:12] LABS: URINE BILIRUBIN NEGATIVE (Negative); URINE BLOOD 2+ (Negative); URINE CLARITY CLEAR; URINE COLOR YELLOW; URINE GLUCOSE-RANDOM* NEGATIVE (Negative); URINE KETONES NEGATIVE (Negative); URINE LEUKOCYTES-REFLEX 2+ (Negative); URINE NITRITE-REFLEX POSITIVE (Negative); URINE PROTEIN (DIPSTICK) 1+ (Negative)
[2020-07-26 22:15] LABS: ABSOLUTE NEUTROPHILS 13.4 thou/uL (1.4-8.2); BASOPHILS 0.4 % (0.0-2.0); EOSINOPHILS 0.5 % (0.0-3.0); HEMATOCRIT 27.4 % (42.0-52.0); HEMOGLOBIN 8.7 gm/dL (14.0-18.0); LYMPHOCYTES 3.5 % (24.0-44.0); MCH 29.6 pg (26.0-34.0); MCHC 31.8 g/dL (28.0-37.0); MCV 93.2 fL (80.0-100.0); MONOCYTES 6.3 % (1.0-8.0); PLATELET COUNT 263 thou/uL (150-400); POLYS 89.3 % (36.0-66.0); RBC 2.94 mil/uL (4.50-6.00); RDW 16.3 % (10.5-14.5)
[2020-07-26 22:22] LABS: ANION GAP 4 mmol/L (7-16); BUN 26 mg/dL (7-18); CALCIUM 8.5 mg/dL (8.5-10.1); CHLORIDE 107 mmol/L (98-107); CO2 33 mmol/L (21-32); CREATININE 1.7 mg/dL (0.7-1.3); GLUCOSE 165 mg/dL (74-106); SODIUM 144 mmol/L (136-145)
[2020-07-26 22:34] LABS: ALBUMIN 2.8 g/dL (3.4-5.0); SGOT 24 U/L (15-37); SGPT 58 U/L (16-63); TOTAL BILIRUBIN 0.9 mg/dL (0.2-1.0); TOTAL PROTEIN 6.4 g/dL (6.4-8.2); TROPONIN-I <0.06 ng/mL (<0.06)
[2020-07-26 22:35] LABS: BE(vivo) 8.5 mmol/L (-2 to +3); HCO3 34.5 mmol/L (22.0-26.0); PCO2 56.8 mmHg (35.0-45.0); PO2 85.5 mmHg (80.0-100.0); pH 7.401 (7.360-7.450); sO2 96.3 % (92.0-98.0)
[2020-07-26] MEDS ORDERED: ALMACONE-2 LIQ355 ML PO (22:36)
[2020-07-26 22:45] LABS: BACTERIA-REFLEX 1-9 Few /HPF (None Seen); CASTS None Seen /LPF (None Seen); CRYSTALS None Seen /LPF (None Seen); MUCUS 4-6 Moderate strn/LPF (None Seen); SQUAMOUS 0-3 Few /LPF (0-3); WBC CLUMPS Few (None Seen)
[2020-07-26 22:45] LABS: APTT 36.4 Seconds (24.5-32.8); INR 1.26; PROTIME 13.6 Seconds (9.3-11.4)
[2020-07-26] MEDS ORDERED: HYDROCODON-ACE1 EAC7 PO ×2 (22:50)
[2020-07-26] MEDS ORDERED: LASIX 40 MG TAB40 MG PO (22:51)
[2020-07-26] MEDS ORDERED: MSL20MG/ML PO ×3 (23:03→23:05)
[2020-07-26] MEDS ORDERED: TYLENOL325 M1 PO (23:07)
[2020-07-26] MEDS ORDERED: MIRALAX119 GM PO (23:08)
[2020-07-26] MEDS ORDERED: HUMALOG100 UNIT/1 SUBQ (23:13)
[2020-07-27] VITALS (8 sets, daily range): BP systolic 99–198; BP diastolic 36–76
[2020-07-27 05:23] LABS: ABSOLUTE NEUTROPHILS 8.8 thou/uL (1.4-8.2); BASOPHILS 1.2 % (0.0-2.0); EOSINOPHILS 0.6 % (0.0-3.0); HEMATOCRIT 26.4 % (42.0-52.0); HEMOGLOBIN 8.3 gm/dL (14.0-18.0); LYMPHOCYTES 5.7 % (24.0-44.0); MCH 29.6 pg (26.0-34.0); MCHC 31.4 g/dL (28.0-37.0); MCV 94.2 fL (80.0-100.0); MONOCYTES 7.4 % (1.0-8.0); PLATELET COUNT 250 thou/uL (150-400); POLYS 85.1 % (36.0-66.0); RBC 2.81 mil/uL (4.50-6.00); RDW 16.7 % (10.5-14.5); WBC 10.4 thou/uL (4.0-11.0)
[2020-07-27 05:33] LABS: ALBUMIN 2.7 g/dL (3.4-5.0); CALCIUM 8.1 mg/dL (8.5-10.1); CREATININE 1.9 mg/dL (0.7-1.3); POTASSIUM 3.7 mmol/L (3.5-5.1); TOTAL BILIRUBIN 0.8 mg/dL (0.2-1.0); TOTAL PROTEIN 6.3 g/dL (6.4-8.2)
--- NOTE | 2020-07-27 06:25 | NUR ---
PT ARRIVED VIA CART FROM ER. ADMISSION COMPLETED, CARE PLAN IN PLACE, AN INTERVENTIONS STARTED. PT DC'D HERE IN JUNE. AT ADMISSION ON 06/20 PT WAS COVID+ WITH A THRESHOLD OF 36.8. ON THIS ADMISSION COVID PCR WAS DONE AGAIN, PT CAME BACK COVID+ AGAIN. THRESHOLD WAS 35.8 PER VANESSA IN THE LAB. PA S DC'D ENHANCED PRECAUTIONS PREVIOUSLY ON June. PT IS BEDBOUND AND CURRENTLY ON 6L 02. IVF GTT AND BRITTON IN PLACE DUE TO IMMOBILITY. HOURLY ROUNDING.
--- NOTE | 2020-07-27 12:40 | EKG ---
[address] [place] [address] ELECTROCARDIOGRAM REPORT Name: DEX BLACK Room #: 355- ADM IN M.R.#: [id number] Admission: 07/27/20 Attend Phys: Matthew Costa MD Discharge: Date of : 55 Report #: [id number] [facility] ED Test Date: 2020-07-26 Test Time: 21:38:03 Pat Name: DEX BLACK Department: Room: 355 P Gender: M Machine Finisher: MIKEL : 1955 Requested By: Matthew Costa Order Number: [id number] MD: Ignacio Cruz Measurements Intervals [place] Rate: 98 P: [place]: QRS: -35 QRSD: 130 T: 117 QT: 336 QTc: 430 Interpretive Statements Atrial fibrillation LVH with secondary repolarization abnormality Baseline wander in lead(s) I,III,aVL Compared to ECG 06/19/2020 17:32:50 No significant change was found Electronically Signed On 07-27-2020 12:39:43 CDT by Ignacio Cruz [email or web address] <ELECTRONICALLY SIGNED> By: Ignacio Cruz MD, [facility] 07/27/20 1239 2138 Ignacio Cruz MD, [facility] /EPI
--- NOTE | 2020-07-27 15:47 | NUR ---
care assumed at 0700, pt alert and oriented x3, forgetful at times. pt denies any nausea and vomitting. reposition very [address], patent and secured. fall precautions in place. call light, table and item within reach. will continue to monitor.
--- NOTE | 2020-07-27 16:14 | NUR ---
INITIAL ASSESSMENT: Received consult. MURIEL reviewed chart and spoke with nursing and attending physician. Pt was admitted from [facility] due to pneumonia/UTI. Pt was on service with [facility]. Pt revoked hospice. MURIEL spoke with Alfonso in intake at [facility]. Revocation ppwk faxed to MURIEL this afternoon. MURIEL faxed to [facility] to place in medical record. Pt is on 5L of O2 and on IV abx. Pt requesting to be full code-no intubation. MURIEL met with pt at bedside. Pt is alert/orientated. Pt reports he is normally on 4L at the facility. Pt states he would like to resume hospice services when he returns to the facility. MURIEL provided update to [facility] home school liaison officer. MURIEL left voice message for pt's sister/DPOA, Heidi, to provide update and discuss discharge plan. MURIEL faxed clinical info to [facility]. Voice message left for Miracle in admissions. Plan is for pt to return to [facility] when medically stable. MURIEL is following to assist as needed with discharge planning.
[2020-07-28 04:00] VITALS: BP 137/63
--- NOTE | 2020-07-28 04:41 | NUR ---
Pt. on 6L O2 at beginning of shift with O2 sat of 100%. O2 titrated down to 4L which pt. stated is his baseline. Around 0045 , pt. c/o being short of breath. When checked on pt. cannula slid of his nose , O2 sat in the 70's. O2 at 5L placed back to maintain O2 sat > 90%. Pt. stated he wears BIPAP at HS but he's claustrophobic. CONCRETE FORM SETTER notified and order obtained. RT also notified . Once RT put pt. on CPAP he started hollering and moaning stating to take it off and he can't stand it , feeling claustrophobic eventhough he is wearing a nasal mask. Pt. switched back to cannula and RT notified. Repositioned prn.
[2020-07-28 05:18] LABS: HEMOGLOBIN 6.7 gm/dL (14.0-18.0); RDW 16.4 % (10.5-14.5)
[2020-07-28 05:21] LABS: HEMATOCRIT 20.9 % (42.0-52.0); MCH 29.8 pg (26.0-34.0); MCHC 32.2 g/dL (28.0-37.0); MCV 92.5 fL (80.0-100.0); RBC 2.26 mil/uL (4.50-6.00); WBC 7.5 thou/uL (4.0-11.0)
[2020-07-28 05:39] LABS: CREATININE 1.8 mg/dL (0.7-1.3); MAGNESIUM 1.8 mg/dL (1.8-2.4); POTASSIUM 3.6 mmol/L (3.5-5.1)
[2020-07-28 07:32] VITALS: BP 143/55
--- NOTE | 2020-07-28 07:33 | NUR ---
PAGED DR. ARGUETA A COUPLE OF TIMES ABOUT PT HGB, WAITING FOR A CALL BACK
--- NOTE | 2020-07-28 08:06 | NUR ---
RD consult received, pt with extreme class III obesity, BMI 60.8. Admit from facility with SOA, fever. Hospice services revoked for this admit. Wts remain fairly stable in 400s. ST has assessed due to hx dysphagia; has been recommended that pt be on puree with thickened liquids however pt is refusing this diet. Ate up to 100%. Hgb low 6.7. Place at low nutrition risk at this time
[2020-07-28 08:11] LABS: HEMATOCRIT 21.6 % (42.0-52.0); HEMOGLOBIN 6.8 gm/dL (14.0-18.0)
[2020-07-28 09:21] LABS: % SATURATION 10 % (20-39); IRON 21 ug/dL (65-175); TIBC 218 ug/dL (250-450)
[2020-07-28 09:31] LABS: ABSOLUTE RETIC COUNT 0.1025 10^6/uL; OBSERVED RETIC COUNT 4.4 % (0.6-2.6)
[2020-07-28 11:33] VITALS: BP 102/51
[2020-07-28 11:46] VITALS: BP 104/53; BP 127/57
--- NOTE | 2020-07-28 11:53 | NUR ---
1149 BLOOD TRANSFUSION STARTED, VERIFIED WITH 2ND NURSE, ANGELA. VITALS SIGNS STABLE, LUNGS IN DIMINISHED. 15MINS MINS CHACKED BEING COMPLETED AT MOMENT.
--- NOTE | 2020-07-28 15:12 | NUR ---
MURIEL reviewed chart and spoke with nursing and attending physician. Pt is slowly progressing towards goals for discharge. Pt is on 5L of O2 and IV abx. Pt's plan is to return to [facility] and be readmitted on service with [facility]. MURIEL provided update to torri Canalesison for [facility]. MURIEL spoke with pt's sister/DPOA, Margaret, via phone to provide update and confirmed discharge plan. Margaret requests to speak with physician regarding recurrent UTIs. MURIEL provided contact info to attending physician. MURIEL is following to assist as needed with discharge planning.
[2020-07-28 19:12] VITALS: BP 88/51
[2020-07-28 23:45] VITALS: BP 136/59
[2020-07-29 04:15] VITALS: BP 124/64
--- NOTE | 2020-07-29 04:51 | NUR ---
Pt. slept most of the night. Repositioned prn upon pt. request. Denies need for pain med. Maintaining O2 sat in the upper 90's to 100% on 4L/NC. Unable to tolerate HS CPAP due to claustrophobia. Kept NPO for abd US.
[2020-07-29 05:12] LABS: HEMATOCRIT 22.8 % (42.0-52.0); HEMOGLOBIN 7.4 gm/dL (14.0-18.0); MCH 29.6 pg (26.0-34.0); MCHC 32.3 g/dL (28.0-37.0); MCV 91.8 fL (80.0-100.0); RBC 2.48 mil/uL (4.50-6.00); RDW 16.2 % (10.5-14.5); WBC 8.2 thou/uL (4.0-11.0)
[2020-07-29 05:34] LABS: ALBUMIN 2.4 g/dL (3.4-5.0); CALCIUM 8.2 mg/dL (8.5-10.1); CREATININE 1.9 mg/dL (0.7-1.3); MAGNESIUM 1.9 mg/dL (1.8-2.4); TOTAL BILIRUBIN 0.5 mg/dL (0.2-1.0)
[2020-07-29 07:10] VITALS: BP 125/56
[2020-07-29 11:25] VITALS: BP 118/59
[2020-07-29 15:46] VITALS: BP 139/52
--- NOTE | 2020-07-29 18:40 | NUR ---
assumed care of pt at 0700. pt aox4 in no acute distress. remains on 4L NC. bariatric bed ordered. najera in place. d/w physician regarding resuming home meds. occult stool submitted to lab. iv abx infusing per order. prn analgesics good relief. vitals stable. good appetite. uneventful on telemetry. no other changes to report. calls appropriately. wcm.
[2020-07-29 19:55] VITALS: BP 110/59
[2020-07-30 03:33] LABS: HEMATOCRIT 21.8 % (42.0-52.0); MCH 29.3 pg (26.0-34.0); MCHC 32.1 g/dL (28.0-37.0); MCV 91.1 fL (80.0-100.0); RBC 2.4 mil/uL (4.50-6.00); RDW 16.2 % (10.5-14.5); WBC 7.4 thou/uL (4.0-11.0)
[2020-07-30 03:40] LABS: CALCIUM 8.2 mg/dL (8.5-10.1); MAGNESIUM 1.9 mg/dL (1.8-2.4); POTASSIUM 3.5 mmol/L (3.5-5.1)
[2020-07-30 04:33] LABS: OBSERVED RETIC COUNT 3.76 % (0.6-2.6)
[2020-07-30 04:45] VITALS: BP 120/63
--- NOTE | 2020-07-30 06:24 | NUR ---
PT SLEPT COMFORTABLY ALL EVENING. VSS AND TELE SHOWS AFIB. PT HAD LARGE BM OVERNIGHT. PT KEPT O2 ON ALL EVENING. HOURLY ROUNDING.
[2020-07-30 07:30] VITALS: BP 118/49
[2020-07-30 11:11] VITALS: BP 152/51
--- NOTE | 2020-07-30 13:47 | NUR ---
MURIEL reviewed chart and spoke with nursing and attending physician. Pt is slowly progressing towards goals for discharge. No weekend discharge planned. Anticipate discharge back to [facility] with [facility] early next week. MURIEL updated Ally at [facility] and Ilene with [facility]. Updates to be faxed on Sunday. MURIEL met with pt at bedside and spoke with his sister, Heidi, via speakerphone. Discussed discharge plan. Both verbalized understanding and are agreeable with discharge plan. MURIEL is following to assist as needed with discharge planning.
[2020-07-30 15:33] VITALS: BP 137/40
[2020-07-30 19:22] VITALS: BP 105/46
[2020-07-31 03:15] VITALS: BP 143/54
[2020-07-31 07:48] VITALS: BP 146/58
--- NOTE | 2020-07-31 07:51 | NUR ---
Ptient making slow progress towards outcome goals. Vital signs and rhythm stable. Icontinent of bowels. Complaining of catheter pain, manually irrigated and a lot of sediments returned. Conitnues to c/o catheter pain when he fees the urge to void. Lewis catheter changed and Hydrocodone given. Has not complained of catheter pain at this time. High fall risks, fall precautions in place.
[2020-07-31 11:13] VITALS: BP 140/35
[2020-07-31 15:30] VITALS: BP 126/58
[2020-07-31 19:48] VITALS: BP 126/54
[2020-08-01 03:53] VITALS: BP 142/73
--- NOTE | 2020-08-01 04:27 | NUR ---
Maintaining O2 sat in the upper 90's on 5L/NC. C/O shortness of breath and requested breathing tx with relief. Repositoned prn for comfort. He slept well during the night. Denies any pain.
[2020-08-01 08:35] VITALS: BP 141/63
[2020-08-01 11:23] VITALS: BP 107/53
[2020-08-01 15:50] VITALS: BP 126/26
[2020-08-01 19:54] VITALS: BP 103/56
[2020-08-02 04:07] VITALS: BP 118/51
--- NOTE | 2020-08-02 04:55 | NUR ---
Pt. has slept well most of the night.Repositioned prn for comfort.O2 at 4L/NC and he does get short of breath with exertion. Incontinent of large bm. Z guard applied to buttocks. Refused insulin ( lantus and SS ) stating he didn't eat much dinner time. BG of 92 at HS.
[2020-08-02 07:26] VITALS: BP 128/46
[2020-08-02 10:30] LABS: HEMOGLOBIN 6.6 gm/dL (14.0-18.0); WBC 9.4 thou/uL (4.0-11.0)
[2020-08-02 10:32] LABS: HEMATOCRIT 20.8 % (42.0-52.0); MCHC 31.9 g/dL (28.0-37.0); MCV 90.8 fL (80.0-100.0); RBC 2.29 mil/uL (4.50-6.00); RDW 16.6 % (10.5-14.5)
[2020-08-02 10:42] LABS: CALCIUM 8.7 mg/dL (8.5-10.1); CREATININE 1.8 mg/dL (0.7-1.3); MAGNESIUM 1.9 mg/dL (1.8-2.4); POTASSIUM 3.2 mmol/L (3.5-5.1)
[2020-08-02] MEDS ORDERED: CIPRO500 M1 PO (11:02)
[2020-08-02] MEDS ORDERED: EAR DROPS15 ML OTIC (11:02)
[2020-08-02 11:04] VITALS: BP 134/62
--- NOTE | 2020-08-02 13:16 | NUR ---
DISCHARGE NOTE: MURIEL reviewed chart and spoke with nursing and attending physician. Discharge orders/summary completed today. Pt to be readmitted onto [facility] upon return to [facility]. MURIEL faxed d/c ppwk to [facility] and [facility]. MURIEL arranged ambulance transportation for 1500 via [facility]. MURIEL met with pt at bedside to provide update. Pt aware and in agreement with plan. MURIEL left voice message for pt's sister/DPOA, Heidi, to notify of discharge plan. MURIEL updated liaisons at [facility] and [facility]. MURIEL was notified by pt's nurse, that pt will received a blood transfusion prior to discharge today. MURIEL postponed ambulance transportation and notified liaisons. Will need ambulance rescheduled when pt is ready for discharge. MURIEL spoke with pt's sister, Heidi, via phone to provide update. MURIEL is following to assist as needed with discharge planning.
[2020-08-02 15:05] VITALS: BP 151/73; BP 155/65
[2020-08-02 19:40] VITALS: BP 125/48
== END 2020-08-02 21:24 | disposition hospice, home (50) | DRG 871 ==
LOC: ER 21:29 → 3W 07-27 00:29 → EROBS 07-27 00:29 → 3W 07-27 01:05
PROVIDERS: Nurse Practitioner; Nurse Practitioner Family; ADMIT Internal Medicine; ATTEND Internal Medicine
PROC: 30233N1 Transfusion of Nonautologous Red Blood Cells into Peripheral Vein, Percutaneous Approach (ICD-10-PCS; principal; 2020-07-28)
DX: A41.9 Sepsis, unspecified organism (principal); J96.21 Acute and chronic respiratory failure with hypoxia; I50.33 Acute on chronic diastolic (congestive) heart failure; G92 Toxic encephalopathy; N17.0 Acute kidney failure with tubular necrosis; J15.6 Pneumonia due to other Gram-negative bacteria; U07.1 COVID-19; N39.0 Urinary tract infection, site not specified; D62 Acute posthemorrhagic anemia; I48.20 Chronic atrial fibrillation, unspecified; I69.351 Hemiplegia and hemiparesis following cerebral infarction affecting right dominant side; Z68.44 Body mass index [BMI] 60.0-69.9, adult; E66.2 Morbid (severe) obesity with alveolar hypoventilation; E87.0 Hyperosmolality and hypernatremia; I13.0 Hypertensive heart and chronic kidney disease with heart failure and stage 1 through stage 4 chronic kidney disease, or unspecified chronic kidney disease; J44.1 Chronic obstructive pulmonary disease with (acute) exacerbation; J44.0 Chronic obstructive pulmonary disease with (acute) lower respiratory infection; L03.311 Cellulitis of abdominal wall; N18.9 Chronic kidney disease, unspecified; K46.9 Unspecified abdominal hernia without obstruction or gangrene; D63.8 Anemia in other chronic diseases classified elsewhere; R31.9 Hematuria, unspecified; E11.22 Type 2 diabetes mellitus with diabetic chronic kidney disease; N40.0 Benign prostatic hyperplasia without lower urinary tract symptoms; F41.9 Anxiety disorder, unspecified; Z66 Do not resuscitate; Z51.5 Encounter for palliative care; Z74.01 Bed confinement status; Z88.2 Allergy status to sulfonamides; Z88.1 Allergy status to other antibiotic agents; Z79.899 Other long term (current) drug therapy; Z79.4 Long term (current) use of insulin; Z87.891 Personal history of nicotine dependence; Z72.89 Other problems related to lifestyle; Z86.16 Personal history of COVID-19
CPT/HCPCS: 10879

== ENCOUNTER 2020-08-03 19:54 | Inpatient (IN) | payer MEDICAID ==
[~2020-08-03] VITALS: Ht 182.9 cm; Wt 206.1 kg
--- NOTE | ~2020-08-03 | O ---
[facility] [place] [address] OPERATIVE REPORT Name: DEX BLACK Room #: 205-P ADM IN M.R.#: [id number] Admission: 08/03/20 Attend Phys: Brian Zhao MD Discharge: Date of : 55 Report #: [id number] THIS REPORT FOR: cc: Robinson Ha MD, Shyam MD Patterson,Bassem Quinteros MD ~ DATE OF SERVICE: 08/08/2020 PREOPERATIVE DIAGNOSIS: Left thigh abscess. POSTOPERATIVE DIAGNOSIS: Left thigh hematoma. OPERATION: Incision and drainage of left thigh hematoma. SURGEON: Bassem Yeager MD ANESTHESIA: General. ESTIMATED BLOOD LOSS: 100 mL. SPECIMEN: None. DESCRIPTION OF PROCEDURE: After informed consent was obtained, the patient was brought to the operating room and placed supine. SCDs were placed and working, preoperative antibiotics were administered, general anesthesia was induced. The left thigh was prepped and draped in the usual sterile fashion. I made an approximately 10 cm incision over the area of fluctuance. Cautery dissection was made down through the subcutaneous tissue. There, I encountered a large hematoma measuring approximately 10 x 10 cm consistent with the ultrasound findings. All the hematoma was evacuated. There was no evidence of infection. There was no pus. I then copiously irrigated the area with 1000 mL of normal saline. Small bleeding skin edges were cauterized. The area was then packed with sterile gauze. Three Kerlix rolls were used for the packing. Sterile dressings were applied. COMPLICATIONS: None. DISPOSITION: The patient was taken to recovery in satisfactory condition. By: 0935 0945 Bassem Yeager MD /nt
--- NOTE | ~2020-08-03 | EMS ---
[address] [address] EMS Patient Care Report Name: DEX BLACK Room #: REG JULIETTE Frias#: [id number] Admission: 08/03/20 Attend Phys: Discharge: Date of : 55 Report #: [id number] THIS REPORT FOR: //name// Report Transmitted: 08/03/2020 21:50 EMS Care Summary [facility] MED-ACT Incident [id number] @ 08/03/2020 18:46 Incident Location [address] [place] [address] Patient DEX BLACK Male, 64 Years 1955 Patient Address [address] [place] [address] Patient History Congestive Heart Failure (CHF),Chronic Obstructive Pulmonary Disease (COPD),Diabetes,Hypertension (HTN),Hyperlipidemia,Gastro-Esophageal Reflux Disease (GERD),Morbid Obesity,Urinary Tract Infection (UTI),Depression,Anemia,Hypokalemia,Chronic Kidney Disease,Novel Coronavirus (COVID-19), Patient Allergies Sulfa,Trimethoprim, Patient Medications Colace, Ativan, Xarelto, Humalog, Lasix, Albuterol, Ondansetron, Protonix, Benadryl, Citalopram, Gabapentin, Lantus, Singulair, Carvedilol, Prednisone, Hydrocodone, Flomax, Morphine, Nystatin, Digoxin, Chief Complaint shortness of breath Disposition Transported No Lights/[place] Dispatch Reason Breathing Problem Transported To [address] [place] [address] EMS Patient Care Report Name: DEX BLACK Room #: REG JULIETTE M.R.#: [id number] Admission: 08/03/20 Attend Phys: Discharge: Date of : 55 Report #: [id number] [facility] Narrative Medic 1165 dispatched to [facility] for a 64 y/o M c/o of shortness of breath. On arrival, 400 pound pt found sitting semi fowlers in bed and appeared to be in some respiratory distress. Pt has labored breathing at 24 times a minute and moans with every exhale. Medic 1134 advises pt was seen at [facility] yesterday for the same c/o and was brought back to the [facility] today. Staff states pt had a breathing treatment earlier today that came off at some point resulting in a low SPO2 that went back up in the 90s after oxygen applied to pt. Medic 1134 kept pt on nasal canula at 4lpm. Staff advises pt is on hospice and is also a full code. Pt rolled onto hovermat, hovermat inflated, pt slid onto cot, hovermat deflated, pt secured with seatbelts, covered with sheet, and brought to ambulance. Pt monitored throughout transport with no changes in condition. Radio report called en route. ED staff brought ED bed to ambulance where pt was rolled onto lift, hovermat was inflated, pt slid over to ED bed, hovermat deflated, side rails raised on ED bed, and pt brought to ED room 12. Report given to ED RN x 1 @ bedside. Pt unable to sign due to GCS 14, face sheet obtained. Initial Vitals @PTAP: 95,R: 20,BP: 112/87,SpO2: 98, @19:32P: 80,R: 20,Pain: 6/10,GCS: 14,Temp: 98.2F,SpO2: 94, @PTAP: 56,R: 26,BP: 135/67,Glucose: 121,SpO2: 97, Assessments @19:42MENTAL:Hallucinations,Time Oriented,Event Oriented,SKIN:HEENT:LUNG SOUNDS:ABDOMEN:PELVIS//GI:EXTREMITIES:Right Arm: Paralysis,Right Arm: Weakness,PULSE:Radial: 3+ Bounding,NEURO: Impression Shortness of breath Timeline FACILITY SERVICE MANAGER,BP: 112/87 M,PULSE: 95,RR: 20 R,SPO2: 98 Ox,ETCO2: ,BG: ,PAIN: ,GCS: , FACILITY SERVICE MANAGER,BP: 135/67 M,PULSE: 56,RR: 26 R,SPO2: 97 Ox,ETCO2: ,B,PAIN: ,GCS: , 18:28,Call Received 18:28,Psap Call 18:46,Dispatched 18:52,En Route 19:04,On Scene 19:06,At Patient 19:31,Depart Scene 19:32,BP: / M,PULSE: 80,RR: 20 R,SPO2: 94 Ox,ETCO2: ,BG: ,PAIN: 6,GCS: 14, 19:42,At Destination [address] [address] EMS Patient Care Report Name: DEX BLACK Room #: REG JULIETTE Frias#: [id number] Admission: 08/03/20 Attend Phys: Discharge: Date of : 55 Report #: [id number] 20:06,Call Closed Disclaimer v1.1 Copyright 202 [employer] This EMS Care Summary contains data elements from the applicable legal record (which may be displayed differently). It is designed to provide pertinent information for the following purposes: continuity of care, clinical quality, and state data reporting. The complete legal record is available to ED staff and administrators of the receiving hospital in [employer]'s Patient Tracker. All data is provided "as is."
[~2020-08-03 19:54] MED LIST changes: +ALMACONE-2 LIQ355 ML PO; +CIPRO500 M1 PO; +EAR DROPS15 ML OTIC; +MIRALAX119 GM PO; +TYLENOL325 M1 PO
[2020-08-03 19:55] VITALS: BP 155/74
[2020-08-03 20:57] LABS: BE(vivo) 7.4 mmol/L (-2 to +3); HCO3 32.8 mmol/L (22.0-26.0); PCO2 48.6 mmHg (35.0-45.0); PO2 133.7 mmHg (80.0-100.0); pH 7.447 (7.360-7.450); sO2 98.7 % (92.0-98.0)
[2020-08-03 21:36] LABS: EOSINOPHILS 2.1 % (0.0-3.0); HEMATOCRIT 23.9 % (42.0-52.0); HEMOGLOBIN 7.9 gm/dL (14.0-18.0); LYMPHOCYTES 9.5 % (24.0-44.0); MCH 29.8 pg (26.0-34.0); MCHC 32.8 g/dL (28.0-37.0); MCV 90.7 fL (80.0-100.0); MONOCYTES 6.7 % (1.0-8.0); PLATELET COUNT 303 thou/uL (150-400); POLYS 80.7 % (36.0-66.0); RBC 2.64 mil/uL (4.50-6.00); RDW 16.6 % (10.5-14.5); WBC 9.9 thou/uL (4.0-11.0)
[2020-08-03 21:39] LABS: CALCIUM 8.4 mg/dL (8.5-10.1); CREATININE 1.8 mg/dL (0.7-1.3)
[2020-08-03 21:54] LABS: ALBUMIN 2.2 g/dL (3.4-5.0); DIRECT BILIRUBIN 0.1 mg/dL (<0.1-0.2); TOTAL BILIRUBIN 0.4 mg/dL (0.2-1.0); TOTAL PROTEIN 6.5 g/dL (6.4-8.2)
[2020-08-03 22:57] LABS: URINE BILIRUBIN 2+ (Negative); URINE BLOOD NEGATIVE (Negative); URINE CLARITY CLEAR; URINE COLOR ORANGE; URINE GLUCOSE-RANDOM* TRACE (Negative); URINE KETONES TRACE (Negative); URINE LEUKOCYTES-REFLEX TRACE (Negative); URINE PROTEIN (DIPSTICK) 2+ (Negative); URINE SPECIFIC GRAVITY 1.025 (1.005-1.035)
[2020-08-03 23:04] LABS: URINE NITRITE-REFLEX POSITIVE (Negative)
[2020-08-03 23:07] LABS: BACTERIA-REFLEX 1-9 Few /HPF (None Seen); CASTS None Seen /LPF (None Seen); CRYSTALS None Seen /LPF (None Seen); MUCUS 4-6 Moderate strn/LPF (None Seen); SQUAMOUS 4-10 Moderate /LPF (0-3); URINE RBC 3-10 Few /HPF (0-2); URINE WBC-REFLEX 6-15 Few /HPF (0-5)
[2020-08-03 23:13] LABS: AMP/METHAMP Negative (Negative); BARBITURATES Negative (Negative); BENZODIAZEPINES Negative (Negative); COCAINE Negative (Negative); METHADONE Negative (Negative); OPIATES Negative (Negative); PCP Negative (Negative)
[2020-08-04] VITALS (7 sets, daily range): BP systolic 105–146; BP diastolic 53–80
[2020-08-04] MEDS ORDERED: ATIVAN0.5 M1 PO (00:52)
[2020-08-04] MEDS ORDERED: MSL20MG/ML SUBLING (01:05)
[2020-08-04] MEDS ORDERED: PYRIDIUM200 MG PO (01:07)
[2020-08-04 05:28] LABS: HEMATOCRIT 23.9 % (42.0-52.0); HEMOGLOBIN 7.6 gm/dL (14.0-18.0); MCHC 31.8 g/dL (28.0-37.0); MCV 91.2 fL (80.0-100.0); RBC 2.62 mil/uL (4.50-6.00); WBC 8.8 thou/uL (4.0-11.0)
[2020-08-04 05:55] LABS: CALCIUM 8.2 mg/dL (8.5-10.1); CREATININE 1.8 mg/dL (0.7-1.3); POTASSIUM 3.7 mmol/L (3.5-5.1)
--- NOTE | 2020-08-04 07:39 | NUR ---
ASSUME CARE 1900. PT LETHARGIC/CONFUSED ON ARRIVAL BUT MORE AWAKE AT THE END OF THE SHIFT. ANSWERS MOST QUESTIONS APPROPRIATELY BUT STILL CONFUSED. ASSESSMENT CHARTED. NO PAIN INDICATED. AFIB/ CONTROLLED HR NOTED ON MONITOR. PLAN IS TO CONTINUE ABX THERAPY FOR UTI AND TO MONITOR AND MANAGE LOC. WILL CONTINUE TO MONITOR AND FOLLOW WITH POC
--- NOTE | 2020-08-04 08:59 | NUR ---
ASSUMED PT CARE AT 0700. PT ASSESSMENT PERFORMED CHARTED. VSS. PT VOICES NO CONCERNS AT THIS TIME. WILL CONTINUE TO MONITOR AND FOLLOW POC.
--- NOTE | 2020-08-04 10:41 | NUR ---
Nutrition: RD notified of low klaudia score. Perianal excoriation documented. Admit w/ AMS, UTI, hypoxia. Just D/C 08/02 to facility/hospice. Noted hospice revoked for recent admission. BMI 61, extreme class 3 obesity and weights stable in the 400s per hx. Pt ate 50-100% of meals on recent admit. Diet just advanced this am to Carb controlled. Did note ST had previously recommended modified solids/liquids but pt had refused so is on regular consistency diet. Will follow POC and for any needed interventions however place as low risk.
--- NOTE | 2020-08-04 11:29 | NUR ---
Case opened to follow for dc planning. 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 He is known to and recently dc'd 08-02-20 back there with admission to [facility]. Pt's sister Heidi is his dpoa for health care and is signing the revocation form. [facility] to fax to [facility] for the aida. The pt is being treated for UTI/exac CHF. Pt's sister would like to resume hospice services upon his return to the intermediate. She was provided with the unit number for a clinical update. She is available as needed on her cell phone. [facility] and [facility] to be faxed a clinical update today per the dc production control planner. Message left for Miracle in admissions at [facility] to confirm they are holding his bed. The pt is bedbound and total care. He is a&ox2 but forgetful and confused at times. He is obese and requires [facility] transport at [facility]. Nursing updated. Dc plan is to return to the intermediate with resumption of hospice care at [facility].
--- NOTE | 2020-08-04 11:54 | NUR ---
ORDERS RECEIVED FOR PT EVAL AND TREAT. [facility] AND WAS RECENTLY ON HOSPICE BUT RESCINDED TO HOME TO HOSPITAL LAST WEEK WITH RECENT D/C 08/02 BACK TO FACILITY WITH HOSPICE. Pt ADMITTED AGAIN NOW. HAS BEEN BEDRIDDEN FOR 2 YEARS AND JESSICA LIFT IF OOB PER LAST PT EVALUATION COMPLETED ON 07/27/20. Pt STILL AT BASELINE AT THIS TIME. Pt NOT APPROPRIATE FOR ACUTE PT SERVICES. DISCUSSED WITH DR MCCLAIN WHO AGREED TO CANCEL PT ORDER. PT ORDER WAS CANCELLED.
--- NOTE | 2020-08-04 14:35 | NUR ---
FAXED CLINICAL UPDATE TO [facility] RECEIVED CONFIRMATION AND LEFT MSG WITH IESHA IN ADM.
--- NOTE | 2020-08-04 16:12 | NUR ---
PT RESTING, ASSESSMENT PERFORMED CHARTED. VSS. WILL CONTINUE TO MONITOR AND FOLLOW POC.
--- NOTE | 2020-08-05 02:40 | NUR ---
assumed pt care at around 1900. pt is awake, alert and oriented to self place and time, forgetfull at times, pt assessments completed and as charted, pt complaining of sob, o2sats stable at 95% on 5l nc, pt states taking morphine for air hunger at the facility, fnps notified and order received for one time dose, breathing tx and ativan added to mar as per home meds, pt yells on and off and could not go to sleep, doesnt seem to get comfortable with repositioning, housekeeping assistant notified for need of bariatric bed, will order one, no needs at this time, will continue to monitor and follow poc
[2020-08-05 05:19] LABS: HEMATOCRIT 24.3 % (42.0-52.0); HEMOGLOBIN 7.9 gm/dL (14.0-18.0); MCH 29.5 pg (26.0-34.0); MCHC 32.4 g/dL (28.0-37.0); MCV 91.1 fL (80.0-100.0); RBC 2.66 mil/uL (4.50-6.00); RDW 16.6 % (10.5-14.5); WBC 8.4 thou/uL (4.0-11.0)
[2020-08-05 06:02] LABS: CALCIUM 8.4 mg/dL (8.5-10.1); CREATININE 1.7 mg/dL (0.7-1.3); POTASSIUM 3.9 mmol/L (3.5-5.1)
[2020-08-05 07:46] VITALS: BP 141/63
[2020-08-05 11:10] VITALS: BP 136/59
--- NOTE | 2020-08-05 12:06 | NUR ---
Message left for [facility] business office requesting a copy of the pt's revocation document for our records. No dc anticipated today. Pt continuing iv lasix and weaning o2 back to baseline of 4lnc. Will follow.
--- NOTE | 2020-08-05 13:20 | NUR ---
LEFT #4F POWERINJECTABLE MIDLINE PLACED PER HOSPITAL POLICY. LINE WAS TRIMMED TO 10CM AND ADVANCED WITHOUT DIFFICULTY. LINE SECURED AND RELEASED FOR USE
[2020-08-05 14:12] VITALS: BP 102/39
[2020-08-05 15:04] VITALS: BP 93/70
--- NOTE | 2020-08-05 16:47 | NUR ---
PT PROGRESSING SLOWLY TOWARD GOALS.
[2020-08-05 19:00] VITALS: BP 123/55
[2020-08-06 04:00] VITALS: BP 124/87
--- NOTE | 2020-08-06 06:51 | NUR ---
ASSUME CARE 1900. PT/VITALS STABLE. INTERMITTENT LEFT LEG PAIN INDICATED. POOR TOLERANCE TO ACTIVITY. ASSESSMENT CHARTED. PROGRESSING VERY SLOWLY TOWARDS POC. AFIB ON MONITOR WITH RATE CONTROLLED. 5LNC TOLERATING WELL. PLAN IS TO CONTINUE TO DIURESE PT/CONTINUE WITH ABX. WILL CONTINUE TO MONITOR AND FOLLOW WITH POC
[2020-08-06 06:53] LABS: HEMATOCRIT 24.9 % (42.0-52.0); MCH 28.7 pg (26.0-34.0); MCV 89.7 fL (80.0-100.0); RBC 2.78 mil/uL (4.50-6.00); RDW 16.7 % (10.5-14.5)
[2020-08-06 07:01] LABS: CALCIUM 8.3 mg/dL (8.5-10.1); CREATININE 1.6 mg/dL (0.7-1.3); POTASSIUM 3.5 mmol/L (3.5-5.1)
[2020-08-06 07:27] VITALS: BP 116/93
[2020-08-06 11:27] VITALS: BP 111/49
--- NOTE | 2020-08-06 12:26 | NUR ---
No weekend dc anticipated as pt is still diuresing. O2 needs improving and pt is a&ox4. He has visited with Dr. Martinez, palliative care this morning and agreeable to DNR here. He did not wish to sign the outside the hospital DNR for the detention. During our bedside visit he confirmed the above and had his sister/dpoa on speaker phone as well. He is uncertain if he wants to resume hospice care at dc as he wants to be able to come back to the hospital if he gets in distress. He would like therapy to eval although he is at baseline functionally. He is bedbound/requires amos lift. He will need [facility] transport and is bariatric. He is normally on 4liters of o2. [facility] next week.
[2020-08-06 14:56] VITALS: BP 129/46
--- NOTE | 2020-08-06 15:04 | NUR ---
PT SEEN BY TODAY, CODE STATUS CHANGED TO DNR. ORDERED PT/OT EVAL BUT PT/OT STOPPED BY N INFORMED RN THAT PT HAD PREVIOUSLY BEEN SEEN NOT TOO LONG AGO AND PER PT'S BASELINE, THERE IS INSUFFICIENT WORKUP POSSIBLE FOR THIS PT DURING THIS HOSPITAL STAY SO PT/OT IS INAPPROPERIATE. PT HAS BEEN SLEEPING ALL DAY MOSTLY AND IS PLEASANT.
[2020-08-06 19:40] VITALS: BP 147/43
[2020-08-07 03:40] VITALS: BP 93/50
[2020-08-07 05:17] LABS: HEMATOCRIT 24.2 % (42.0-52.0); HEMOGLOBIN 7.7 gm/dL (14.0-18.0); MCH 28.3 pg (26.0-34.0); MCHC 31.9 g/dL (28.0-37.0); RBC 2.72 mil/uL (4.50-6.00); RDW 16.8 % (10.5-14.5); WBC 9.4 thou/uL (4.0-11.0)
[2020-08-07 05:26] LABS: CALCIUM 7.9 mg/dL (8.5-10.1); CREATININE 1.6 mg/dL (0.7-1.3); POTASSIUM 3.4 mmol/L (3.5-5.1)
[2020-08-07 07:56] VITALS: BP 113/61
--- NOTE | 2020-08-07 08:56 | NUR ---
ASSUMED PT CARE AT 0700. PT REPOSITIONED WITH PM NURSE. 0845, ASSESSMENT PERFORMED CHARTED, VSS. PT EATING BREAKFAST. PT VOICES NO C/O OR CONCERNS AT THIS TIME. WILL CONTINUE TO MONITOR AND FOLLOW POC.
[2020-08-07 11:07] VITALS: BP 139/63
--- NOTE | 2020-08-07 12:01 | NUR ---
PT HAD BOWEL MOVEMENT, CLEANED UP. APPLICATION PERFORMANCE ENGINEER AND RN CLEANED PT UP. PT C/O PAIN. PAIN MEDICATION GIVEN. VSS. WILL CONTINUE TO MONITOR AND FOLLOW POC.
[2020-08-07 15:16] VITALS: BP 106/50
--- NOTE | 2020-08-07 16:11 | NUR ---
PT RESTING FOLLOWING THE BENEDRYL FOR ITCHING. PT DENIES PAIN AT THIS TIME. VSS. WILL CONTINUE TO MONITOR AND FOLLOW POC. PT SIGNED CONSENT FORM FOR TOMORROWS I&D.
[2020-08-07 19:30] VITALS: BP 103/56
[2020-08-08 04:40] VITALS: BP 119/41
[2020-08-08 05:13] LABS: HEMATOCRIT 23.3 % (42.0-52.0); HEMOGLOBIN 7.4 gm/dL (14.0-18.0); MCH 28.7 pg (26.0-34.0); MCHC 31.8 g/dL (28.0-37.0); MCV 90.2 fL (80.0-100.0); RBC 2.58 mil/uL (4.50-6.00); RDW 16.6 % (10.5-14.5); WBC 8.9 thou/uL (4.0-11.0)
[2020-08-08 05:22] LABS: CALCIUM 7.8 mg/dL (8.5-10.1); CREATININE 1.9 mg/dL (0.7-1.3); POTASSIUM 3.8 mmol/L (3.5-5.1)
[2020-08-08 07:30] VITALS: BP 138/53
--- NOTE | 2020-08-08 09:12 | NUR ---
PT LEFT UNIT TO GO TO OR AT 0745 FOR ABSCESS I&D.
[2020-08-08 11:38] VITALS: BP 124/68
[2020-08-08 15:04] VITALS: BP 131/52
--- NOTE | 2020-08-08 16:11 | NUR ---
PT SITTING IN BED, WATCHING TV, PT STATES HE HAS SOME PAIN RELIEF. VSS. WILL CONTINUE TO MONITOR AND FOLLOW POC.
[2020-08-08 20:08] VITALS: BP 115/49
[2020-08-08 23:35] VITALS: BP 121/62
[2020-08-09 03:11] LABS: HEMATOCRIT 22.6 % (42.0-52.0); HEMOGLOBIN 7.6 gm/dL (14.0-18.0); MCH 30.8 pg (26.0-34.0); MCHC 33.7 g/dL (28.0-37.0); MCV 91.4 fL (80.0-100.0); RBC 2.47 mil/uL (4.50-6.00); WBC 9.6 thou/uL (4.0-11.0)
[2020-08-09 04:10] VITALS: BP 134/67
[2020-08-09 07:39] LABS: CALCIUM 7.7 mg/dL (8.5-10.1); CREATININE 2.1 mg/dL (0.7-1.3); MAGNESIUM 1.9 mg/dL (1.8-2.4); POTASSIUM 4.2 mmol/L (3.5-5.1)
[2020-08-09 07:41] VITALS: BP 131/57
--- NOTE | 2020-08-09 09:32 | NUR ---
ASSUMED PT CARE AT 0700. PT IN BED. PT REPOSITIONED AND CHECKED FOR INCONT BOWEL WITH OFFGOING AND ONCOMING RN. PT CLEAN. 0830, ASSESSMENT PERFORMED CHARTED. PT EDUCATED ON WHEN NEXT PAIN MEDICATION IS DUE. PT ONLY VOICES CONCERNS ON INCREASING PAIN MEDICATIONS. DR LOCKWOOD AWARE OF THE LARGE AMOUNT OF DRAINAGE OVER NIGHT FROM LEFT THIGH WOUND. WOUND DRESSING IS CURRENTLY CLEAN AND DRY. WILL CONTINUE TO MONITOR PT AND FOLLOW POC.
[2020-08-09 11:31] VITALS: BP 123/58
--- NOTE | 2020-08-09 14:10 | NUR ---
FAXED CLINICAL UPDATE TO [facility] SPOKE WITH IESHA IN ADM SHE RECEIVED UPDATE. ALSO STATED THAT PT CAN RETURN WITH A DIFFERENT HOSPICE NOT [facility] DUE TO [facility]ING [facility] QUITE A BIT OF MONEY. IESHA SAID SHE WOULD SPEAKE WITH PT. NOTIFIED PT'S MURIEL (YOLANDA) ON UNIT SHE SAID POSS DC TO FACILITY WITH NO HOSPICE NEEDED. NOTIFIED IESHA AT [facility] OF POSS YRETURN WITHOUT HOSPICE.
[2020-08-09 16:01] VITALS: BP 118/51
[2020-08-09 20:25] VITALS: BP 102/53
--- NOTE | 2020-08-10 04:54 | NUR ---
ASSUMED PT CARE AT NAGE OF SHIFT, AWAKE, ALERT AND ORIENTEDX4, AFIB ON TELE, ASSESSMENTS CHARTED, PAIN TO THE LEFT THIGH PARTIALLY RELIEVED BY PAIN MEDS, REPOSITIONED AND CLEANED FOR INCONTINENT OF BOWEL, BRITTON IN, MODERATE-LARGE AMOUNT OF DRAINAGE NOTED ON THE DRESSING, ABD AND AMPARO WRAP TO THE PACKED INCISION, NO NEEDS AT THIS TIME, PROGRESSING TOWARDS DISCHARGE
[2020-08-10 05:08] LABS: RBC 2.41 mil/uL (4.50-6.00)
[2020-08-10 05:10] LABS: HEMOGLOBIN 6.9 gm/dL (14.0-18.0); MCH 28.5 pg (26.0-34.0); MCHC 31.2 g/dL (28.0-37.0); MCV 91.2 fL (80.0-100.0); WBC 11.4 thou/uL (4.0-11.0)
[2020-08-10 05:14] VITALS: BP 133/48
[2020-08-10 05:16] LABS: CALCIUM 7.4 mg/dL (8.5-10.1); CREATININE 2.1 mg/dL (0.7-1.3); MAGNESIUM 1.9 mg/dL (1.8-2.4); POTASSIUM 4.5 mmol/L (3.5-5.1)
[2020-08-10 08:04] VITALS: BP 150/70
--- NOTE | 2020-08-10 08:57 | HC ---
[facility] [place] [address] CONSULTATION Name: DEX BLACK Room #: 205-P ADM IN M.R.#: [id number] Admission: 08/03/20 Attend Phys: Brian Zhao MD Discharge: Date of : 55 Report #: [id number] THIS REPORT FOR: cc: Robinson Ha MD, Shyam MD [place], Allen B. MD ~ DATE OF SERVICE: 08/08/2020 WOUND CARE CONSULTATION NOTE REASON FOR CONSULTATION: Status post 08/08/2020, Dr. Yeager, General Surgery, incision, drainage, and evacuation of large left thigh hematoma for postoperative wound care. HISTORY OF PRESENT ILLNESS: The patient is a 64-year-old morbidly obese gentleman with alveolar hypoventilation, COPD, history of pulmonary embolism, atrial fibrillation and status post cerebrovascular accident, who was recently treated for UTI and has a drug rash. He developed a large hematoma of the left leg requiring incision, drainage and evacuation in the operating room today 08/08/[address] Yeager with a 10 x 20 cm open wound packed with 3 Kerlix. Dressing changes will be due on Sunday or Sunday. Wound care is consulted to deal with the postoperative wound. PAST MEDICAL HISTORY: 1. Recent urinary tract infection, treated with antibiotics. 2. Drug rash secondary to antibiotics, followed by Dr. Dahl. 3. Morbid obesity with alveolar hypoventilation. 4. Atrial fibrillation. 5. Status post cerebrovascular accident. 6. History of pulmonary embolism. 7. Atrial fibrillation. 8. Congestive heart failure. ALLERGIES: SULFAMETHOXAZOLE, TRIMETHOPRIM, SULFA DRUGS. LABORATORY DATA: Albumin low at 2.2. hemoglobin 7.9, hematocrit 23.9 on admission. PHYSICAL EXAMINATION: GENERAL: Shows a super morbidly obese gentleman with diffuse red drug rash of the extremities and chest with mild desquamation. This appears to be resolving. HEENT: Mucous membranes are moist. LUNGS: Respirations unlabored. ABDOMEN: Morbidly obese. EXTREMITIES: Examination of the extremities shows a clean and dry dressing of [facility] [address] [place] [address] CONSULTATION Name: DEX BLACK Room #: 205-P [facility] IN ..#: [id number] Admission: 08/03/20 Attend Phys: Brian Zhao MD Discharge: Date of : 55 Report #: [id number] the left thigh after surgery today with the incision, drainage and evacuation of hematoma. IMPRESSION: 1. Super morbid obesity with alveolar hypoventilation. 2. Drug rash secondary to cefepime from recent urinary tract infection treatment. 3. Severe protein-calorie malnutrition, albumin 2.2. 4. Status post cerebrovascular accident. 5. Atrial fibrillation. 6. Pulmonary embolism history. 7. Spontaneous hematoma of left thigh, surgically drained on 08/08/2020. Large wound packed with 3 Kerlix. Dressing changes can begin on 08/09/2020. PLAN: Discussed wound care with Dr. Yeager, who states that wound care may do first dressing change, treat the wound as indicated, consider negative pressure wound therapy with wound VAC. <ELECTRONICALLY SIGNED> By: Guillaume Liz MD 08/10/20 0857 [id number] Guillaume Liz MD /nt
[2020-08-10 09:01] LABS: HEMATOCRIT 23.5 % (42.0-52.0); HEMOGLOBIN 7.4 gm/dL (14.0-18.0)
[2020-08-10 11:26] VITALS: BP 154/38
[2020-08-10 14:48] VITALS: BP 142/53
--- NOTE | 2020-08-10 15:59 | NUR ---
spoke with patient plan return to [facility]. Patient has revoked hospice. He reports to phys when SOA he wants to return to hospital. DNR form at bedside. Patient reports he does not want to sign. He wants "tube" if needed. Patient reports when he returns to facility he wants to resume with [facility]. [facility] reports will not be able to resume [facility] due to financial reasons. Sp with John at [facility] who reports one time contract with [facility] and they plan to admit to hospice if patient desires. [facility] to meet with patient in am.
--- NOTE | 2020-08-10 16:40 | NUR ---
patient 5l nc. left leg wound dressing changed by wound nurse. pateint progressing in plan of care. bm today. patient has adequate appetite.
[2020-08-10 20:40] VITALS: BP 116/41
--- NOTE | 2020-08-11 05:48 | NUR ---
ASSUMED PT CARE AT CHANGE OF SHIFT, AWAKE, ALERT AND ORIENTED, MAKES NEEDS KNOWN, AFIB ON THE MONITOR, PAIN MEDS GIVENX2 WITH RELIEF, SONB, BREATHING TX PRN, ON 5L NC, MEDS GIVE PER JUN, ASSESSMENT CHARTED, PROGRESSING TOWARDS DISCHARGE
[2020-08-11 05:56] LABS: HEMATOCRIT 22.9 % (42.0-52.0); HEMOGLOBIN 7.2 gm/dL (14.0-18.0); MCH 28.8 pg (26.0-34.0); MCHC 31.5 g/dL (28.0-37.0); MCV 91.5 fL (80.0-100.0); RBC 2.5 mil/uL (4.50-6.00); RDW 17.4 % (10.5-14.5); WBC 10.8 thou/uL (4.0-11.0)
[2020-08-11 06:11] LABS: CALCIUM 7.6 mg/dL (8.5-10.1); CREATININE 2.1 mg/dL (0.7-1.3); POTASSIUM 4.1 mmol/L (3.5-5.1)
[2020-08-11 07:27] VITALS: BP 140/53
--- NOTE | 2020-08-11 08:48 | NUR ---
ASSUMED PT CARE AT 0700. PT REPOSITIONED. ASSESSMENT PERFORMED. VSS. WILL CONTINUE TO MONITOR AND FOLLOW POC.
[2020-08-11 11:20] VITALS: BP 103/55
--- NOTE | 2020-08-11 11:56 | NUR ---
Nutrition followup: pt continues to eat well, 100% of meals. S/P Left thigh hematoma I&D on 08/08. BG 131-187, BM 08/10. Severe malnutrition documented by physician-RD will defer. Noted plan to place wound vac tomorrow, will add ensure max daily (low calorie, high protein supplement) for wound healing. Plan to D/C back with hospice per CM notes. Remains low risk.
--- NOTE | 2020-08-11 11:56 | NUR ---
PT IN BED, PT REPOSITIONED AND CLEANED FOLLOWING A BOWEL MOVEMENT. ASSESSMENT UNCHANGED, VSS. WILL CONTINUE TO MONITOR AND FOLLOW POC.
--- NOTE | 2020-08-11 14:00 | NUR ---
Spoke with Ally quesada with [facility]. She sp with patient and his sister. DIscussed post acute care and hospice. Patient may have medicare active. He is interested in returning to [facility] with skilled rehab, He will take time to interview other hospice agencies as he cannot return with [facility]. Registration to inquire if patient has active medicare.
--- NOTE | 2020-08-11 14:52 | NUR ---
WOUND CONSULT; ROUNDING WITH DR MAGALLON AND BRADY BORDEN RN MSN. THE PATIENT IS S/P SURGICAL DAY TWO. THE SURGICAL PACKING WAS REMOVED WITH MILD DISCOMFORT. THE PATIENT HAD BEEN GIVEN PAIN MEDS PRIOR. THE WOUND HAD A MILD ODOR. THE WOUND WAS CLEANSED WITH WOUND CLEANSER AND THE VAC GRESSING WAS APPLIED. RN WAS PRESENT AND DISCUSSED THE PATIENT WITH DR MAGALLON AND ALL QUESTIONS WERE ANSWERED.
[2020-08-11 15:08] VITALS: BP 130/61; BP 131/99; BP 132/65; BP 140/74; BP 142/68
[2020-08-11 15:32] VITALS: BP 152/67
--- NOTE | 2020-08-11 15:53 | NUR ---
PT RECEIVING 1UNIT OF PRBCS. PT EXPRESSES NO C/O AT THIS TIME. ASSESSMENT UNCHANGED. WILL CONTINUE TO MONITOR AND FOLLOW POC.
[2020-08-11 19:15] VITALS: BP 133/99
[2020-08-11 22:49] LABS: HEMOGLOBIN 7.8 gm/dL (14.0-18.0)
--- NOTE | 2020-08-11 23:30 | NUR ---
PATIENT COMPLAINED OF GREAT PAIN IN CATHETER SITE. NURSE TRIED TO FLUSH AND WHEN THAT WOULD NOT WORK, REPLACE. PATIENT STILL STATED PAIN SO NURSE DISCONTINUED CATHETER AND WILL CONTINUE TO ASSESS.
[2020-08-12 04:45] VITALS: BP 139/54
[2020-08-12 05:29] LABS: HEMATOCRIT 24.9 % (42.0-52.0); HEMOGLOBIN 7.9 gm/dL (14.0-18.0); MCHC 31.8 g/dL (28.0-37.0); MCV 91.3 fL (80.0-100.0); RBC 2.73 mil/uL (4.50-6.00); RDW 17.4 % (10.5-14.5); WBC 10.3 thou/uL (4.0-11.0)
[2020-08-12 05:46] LABS: CALCIUM 7.8 mg/dL (8.5-10.1); CREATININE 1.7 mg/dL (0.7-1.3); POTASSIUM 3.9 mmol/L (3.5-5.1)
[2020-08-12 07:31] VITALS: BP 149/48
[2020-08-12 11:41] VITALS: BP 128/54
[2020-08-12] MEDS ORDERED: CALCIUM 500 +1 EAC5 PO (12:12)
[2020-08-12] MEDS ORDERED: PREDNISONE 20 M20 M1 PO (12:12)
[2020-08-12] MEDS ORDERED: CLARITIN10 M2 PO (12:12)
[2020-08-12] MEDS ORDERED: HYDROCODON-ACE1 EAC7 PO (12:12)
--- NOTE | 2020-08-12 13:03 | NUR ---
FAXED DISCHARGE ORDERS, SUMMARY AND NEGATIVE COVUD RESULT (08/03/20) TO [facility]. CONFIRMED WITH IESHA/LIAISON THAT [facility] WILL TRANSPORT PATIENT BY AMBULANCE AT14:00. NOTIFIED NURSING UNIT. CONTACTED PATIENT'S SISTER - BRYANT OF DISCHARGE AND TIME OF TRANSFER. CHART COPY COMPLETED. [facility] P [phone]; FAX [phone]; IESHA Greenfield [phone]
== END 2020-08-12 13:59 | DRG 853 ==
LOC: ER 19:54 → EROBS 23:23 → 2N 23:23
PROVIDERS: Anesthesiology; Internal Medicine; Nurse Practitioner; Nurse Practitioner Family; Surgery; ADMIT Hospitalist; ATTEND Hospitalist
DX: A41.9 Sepsis, unspecified organism (principal); I50.33 Acute on chronic diastolic (congestive) heart failure; J96.21 Acute and chronic respiratory failure with hypoxia; G92 Toxic encephalopathy; E43 Unspecified severe protein-calorie malnutrition; J96.22 Acute and chronic respiratory failure with hypercapnia; N17.0 Acute kidney failure with tubular necrosis; L02.416 Cutaneous abscess of left lower limb; I13.0 Hypertensive heart and chronic kidney disease with heart failure and stage 1 through stage 4 chronic kidney disease, or unspecified chronic kidney disease; N39.0 Urinary tract infection, site not specified; I48.20 Chronic atrial fibrillation, unspecified; Z68.44 Body mass index [BMI] 60.0-69.9, adult; E66.2 Morbid (severe) obesity with alveolar hypoventilation; E87.0 Hyperosmolality and hypernatremia; I69.351 Hemiplegia and hemiparesis following cerebral infarction affecting right dominant side; L03.116 Cellulitis of left lower limb; J44.9 Chronic obstructive pulmonary disease, unspecified; S70.12XA Contusion of left thigh, initial encounter; E78.5 Hyperlipidemia, unspecified; F32.9 Major depressive disorder, single episode, unspecified; N40.0 Benign prostatic hyperplasia without lower urinary tract symptoms; F41.9 Anxiety disorder, unspecified; E11.22 Type 2 diabetes mellitus with diabetic chronic kidney disease; K21.9 Gastro-esophageal reflux disease without esophagitis; E11.42 Type 2 diabetes mellitus with diabetic polyneuropathy; N18.9 Chronic kidney disease, unspecified; K43.9 Ventral hernia without obstruction or gangrene; T36.95XA Adverse effect of unspecified systemic antibiotic, initial encounter; Z20.822 Contact with and (suspected) exposure to COVID-19; X58.XXXA Exposure to other specified factors, initial encounter; Z86.16 Personal history of COVID-19; Z88.2 Allergy status to sulfonamides; Z79.4 Long term (current) use of insulin; Z79.899 Other long term (current) drug therapy; Z74.01 Bed confinement status; Z86.711 Personal history of pulmonary embolism; Y92.89 Other specified places as the place of occurrence of the external cause; Y93.89 Activity, other specified; Y99.8 Other external cause status; L27.0 Generalized skin eruption due to drugs and medicaments taken internally; T50.905A Adverse effect of unspecified drugs, medicaments and biological substances, initial encounter
CPT/HCPCS: 10081; 27000; 50101; 50386; 52287; 57091; 62110; 62900; 70005

== ENCOUNTER 2020-09-01 22:53 | Emergency (ER) | payer OTHER, MEDICAID ==
[~2020-09-01] VITALS: Ht 188 cm; Wt 210.5 kg
[~2020-09-01 22:53] MED LIST changes: +CALCIUM 500 +1 EAC5 PO; +CLARITIN10 M2 PO; +MSL20MG/ML SUBLING; +PREDNISONE 20 M20 M1 PO; +PYRIDIUM200 MG PO
[2020-09-01 23:52] LABS: BE(vivo) 4.2 mmol/L (-2 to +3); PCO2 51.7 mmHg (35.0-45.0); PO2 82.5 mmHg (80.0-100.0); pH 7.381 (7.360-7.450); sO2 95.8 % (92.0-98.0)
[2020-09-01 23:54] LABS: HEMATOCRIT 26.1 % (42.0-52.0); HEMOGLOBIN 7.9 gm/dL (14.0-18.0); MCH 26.5 pg (26.0-34.0); MCHC 30.1 g/dL (28.0-37.0); MCV 88.1 fL (80.0-100.0); PLATELET COUNT 282 thou/uL (150-400); RBC 2.96 mil/uL (4.50-6.00); WBC 11.2 thou/uL (4.0-11.0)
[2020-09-02 00:27] LABS: APTT 30.2 Seconds (24.5-32.8); INR 1.25; PROTIME 13.5 Seconds (10.5-12.1)
[2020-09-02 00:30] LABS: URINE BILIRUBIN NEGATIVE (Negative); URINE BLOOD 1+ (Negative); URINE CLARITY CLEAR; URINE COLOR YELLOW; URINE GLUCOSE-RANDOM* NEGATIVE (Negative); URINE KETONES NEGATIVE (Negative); URINE PROTEIN (DIPSTICK) NEGATIVE (Negative); URINE UROBILINOGEN 0.2 E.U./dl (0.2-1.0)
[2020-09-02 00:33] LABS: ANION GAP 10 mmol/L (7-16); BUN 31 mg/dL (7-18); CALCIUM 8.7 mg/dL (8.5-10.1); CHLORIDE 107 mmol/L (98-107); CO2 29 mmol/L (21-32); CREATININE 1.6 mg/dL (0.7-1.3); GLUCOSE 188 mg/dL (74-106); POTASSIUM 4.7 mmol/L (3.5-5.1); SODIUM 146 mmol/L (136-145)
[2020-09-02 00:36] LABS: URINE LEUKOCYTES-REFLEX 1+ (Negative); URINE NITRITE-REFLEX POSITIVE (Negative)
[2020-09-02 00:40] LABS: BACTERIA-REFLEX 1-9 Few /HPF (None Seen); CASTS None Seen /LPF (None Seen); CRYSTALS None Seen /LPF (None Seen); MUCUS 0-3 Light strn/LPF (None Seen); SQUAMOUS 0-3 Few /LPF (0-3); URINE RBC 3-10 Few /HPF (NONE SEEN); URINE WBC-REFLEX 6-15 Few /HPF (0-5); WBC CLUMPS Few (None Seen)
[2020-09-02 00:40] LABS: ALBUMIN 2.4 g/dL (3.4-5.0); SGOT 23 U/L (15-37); SGPT 39 U/L (30-65); TOTAL BILIRUBIN 0.4 mg/dL (0.2-1.0); TOTAL PROTEIN 6.6 g/dL (6.4-8.2); TROPONIN-I <0.06 ng/mL (<0.06)
[2020-09-02 00:52] LABS: ABSOLUTE NEUTROPHILS 10.2 thou/uL (1.4-8.2); ANISOCYTOSIS 1+; NUCLEATED RBCS 1 /100WBC; PLATELET ESTIMATE NORMAL; POIKILOCYTOSIS 1+; POLYCHROMASIA 1+
[2020-09-02] MEDS ORDERED: CEPHALEXIN500 MG PO (02:00)
[2020-09-02] MEDS ORDERED: LEVAQUIN 500 M500 MG PO (02:45)
[2020-09-02 02:54] VITALS: BP 153/76
--- NOTE | 2020-09-02 06:45 | EKG ---
[address] [address] ELECTROCARDIOGRAM REPORT Name: DEX BLACK [id number] Admission: 09/01/20 Attend Phys: Discharge: 09/02/20 Date of : 55 Report #: [id number] [facility] ED Test Date: 2020-09-01 Test Time: 23:47:51 Pat Name: DEX BLACK Department: Room: Gender: M Distribution Technician: : 1955 Requested By: Simeon Oneal Order Number: [id number] MD: Juan Graves Measurements Intervals [place] Rate: 82 P: ND: QRS: -31 QRSD: 125 T: 100 QT: 374 QTc: 437 Interpretive Statements Atrial fibrillation Nonspecific intraventricular conduction delay Consider anterior infarct Abnormal T, consider ischemia, lateral leads Baseline wander in lead(s) V4 Compared to ECG 07/26/2020 21:38:03 Intraventricular conduction delay now present Myocardial infarct finding now present T-wave abnormality now present Possible ischemia now present Left ventricular hypertrophy no longer present Early repolarization no longer present Electronically Signed On 09-02-2020 6:45:37 CDT by Juan Graves [email or web address] <ELECTRONICALLY SIGNED> By: Juan Graves MD, [facility] 09/02/20 0645 [id number] Juan Graves MD, [facility] /EPI
== END 2020-09-02 02:55 ==
LOC: ER 22:53
PROVIDERS: Emergency Medicine
DX: N39.0 Urinary tract infection, site not specified (principal); R06.00 Dyspnea, unspecified; E66.9 Obesity, unspecified; I13.0 Hypertensive heart and chronic kidney disease with heart failure and stage 1 through stage 4 chronic kidney disease, or unspecified chronic kidney disease; E11.22 Type 2 diabetes mellitus with diabetic chronic kidney disease; N18.9 Chronic kidney disease, unspecified; I50.9 Heart failure, unspecified; I48.91 Unspecified atrial fibrillation; Z87.891 Personal history of nicotine dependence; Z88.1 Allergy status to other antibiotic agents; Z88.8 Allergy status to other drugs, medicaments and biological substances; Z79.899 Other long term (current) drug therapy; Z79.4 Long term (current) use of insulin; Z86.73 Personal history of transient ischemic attack (TIA), and cerebral infarction without residual deficits

== ENCOUNTER 2020-09-08 23:13 | Inpatient (IN) | payer OTHER, MEDICAID ==
[~2020-09-08] VITALS: Ht 188 cm; Wt 200.5 kg
[~2020-09-08 23:13] MED LIST changes: +CEPHALEXIN500 MG PO; +LEVAQUIN 500 M500 MG PO
[2020-09-08 23:15] VITALS: BP 160/65
[2020-09-08 23:49] LABS: BE(vivo) 10.7 mmol/L (-2 to +3); HCO3 38.1 mmol/L (22.0-26.0); pH 7.355 (7.360-7.450); sO2 86.2 % (92.0-98.0)
[2020-09-08 23:50] LABS: PCO2 69.8 mmHg (35.0-45.0); PO2 55.4 mmHg (80.0-100.0)
[2020-09-08 23:54] LABS: ABSOLUTE NEUTROPHILS 7.9 thou/uL (1.4-8.2); BASOPHILS 0.6 % (0.0-2.0); EOSINOPHILS 1.7 % (0.0-3.0); HEMATOCRIT 29.5 % (42.0-52.0); HEMOGLOBIN 8.6 gm/dL (14.0-18.0); LYMPHOCYTES 6.7 % (24.0-44.0); MCH 26.4 pg (26.0-34.0); MCHC 29.2 g/dL (28.0-37.0); MCV 90.5 fL (80.0-100.0); MONOCYTES 4.2 % (1.0-8.0); PLATELET COUNT 252 thou/uL (150-400); POLYS 86.8 % (36.0-66.0); RBC 3.26 mil/uL (4.50-6.00); RDW 19.1 % (10.5-14.5); WBC 9.1 thou/uL (4.0-11.0)
[2020-09-08 23:56] LABS: ANION GAP 6 mmol/L (7-16); BUN 27 mg/dL (7-18); CHLORIDE 109 mmol/L (98-107); CO2 33 mmol/L (21-32); CREATININE 1.5 mg/dL (0.7-1.3); GLUCOSE 132 mg/dL (74-106); POTASSIUM 4.6 mmol/L (3.5-5.1); SODIUM 148 mmol/L (136-145)
[2020-09-09 00:06] LABS: ALBUMIN 2.8 g/dL (3.4-5.0); SGOT 21 U/L (15-37); SGPT 26 U/L (30-65); TOTAL BILIRUBIN 0.3 mg/dL (0.2-1.0); TOTAL PROTEIN 6.7 g/dL (6.4-8.2); TROPONIN-I <0.06 ng/mL (<0.06)
[2020-09-09 01:12] LABS: BE(vivo) 5.1 mmol/L (-2 to +3); HCO3 33.2 mmol/L (22.0-26.0); PO2 125.5 mmHg (80.0-100.0); sO2 97.9 % (92.0-98.0)
[2020-09-09 01:16] LABS: PCO2 72.4 mmHg (35.0-45.0); pH 7.279 (7.360-7.450)
[2020-09-09] MEDS ORDERED: ATIVAN1 M1 PO (01:21)
[2020-09-09 01:26] LABS: URINE BILIRUBIN NEGATIVE (Negative); URINE BLOOD 3+ (Negative); URINE CLARITY CLEAR; URINE COLOR ORANGE; URINE GLUCOSE-RANDOM* NEGATIVE (Negative); URINE KETONES NEGATIVE (Negative); URINE LEUKOCYTES-REFLEX TRACE (Negative); URINE PROTEIN (DIPSTICK) TRACE (Negative); URINE SPECIFIC GRAVITY 1.025 (1.005-1.035)
[2020-09-09 01:27] LABS: URINE NITRITE-REFLEX POSITIVE (Negative)
[2020-09-09 01:37] LABS: SQUAMOUS 0-3 Few /LPF (0-3)
[2020-09-09 01:38] LABS: CRYSTALS None Seen /LPF (None Seen); HYALINE CASTS 4-10 Moderate /LPF (None Seen); MUCUS 0-3 Light strn/LPF (None Seen); URINE WBC-REFLEX 6-15 Few /HPF (0-5); WBC CASTS 0-3 Few /LPF (None Seen)
[2020-09-09 02:46] VITALS: BP 168/78
[2020-09-09 03:18] LABS: BE(vivo) 8.7 mmol/L (-2 to +3); HCO3 36.2 mmol/L (22.0-26.0); PCO2 68.4 mmHg (35.0-45.0); PO2 94.1 mmHg (80.0-100.0); pH 7.341 (7.360-7.450); sO2 96.5 % (92.0-98.0)
[2020-09-09 04:15] VITALS: BP 148/72
[2020-09-09 07:45] VITALS: BP 157/90
--- NOTE | 2020-09-09 08:28 | NUR ---
ADMIT PT ADMITTED TO ROOM 364 FROM ED BEING ADMITTED WITH AMS, PT WITH HYPERCAPNIA, VERY SOMNOLENT. LEFT INNER THIGH HAS WOUND VAC, VAC NOT SEALED AND REMOVED WOUND CLEANSED MEASURED AND PACKED WITH KERLIX AND ABD APPLIED. RIGHT SIDE OF ABDOMEN VERY SWOLLEN RED AND WARM TO TOUCH. RIGHT ARM RED AND WARM. PT BATHED MOISTURIZED. PERIAREA EXCORIATED AND BLEEDING CLEANSED AND ZYGUARD AND BARRIER CREAM APPLIED . ORIENTED TO ROOM CALL LIGHT SYSTEM AND POC.
--- NOTE | 2020-09-09 09:14 | NUR ---
DEGREASING SOLUTION MIXER AND THIS RN ADJUSTED PT UPRIGHT IN BED. PT A&O. PT HAS RR AT 24, AGONAL BREATHING. PT REFUSING BIPAP. PT RECEIVING OXYGEN VIA NC AT 5L.
--- NOTE | 2020-09-09 09:58 | NUR ---
WOUND CONSULT; THIS IS A KNOWN PATIENT TO ME. THE LEFT LEG WOUND MEANSURES 12 X 2 X 7 CM TODAY. THE WOUND MARGINS ARE ROLLED. SCANT AMOUT OF DRAINAGE. NO ODOR. RECOMMENDATIONS; PACKED WITH AQUACEL AGE,GUAZE AND AN ABD FOR NOW. DR GREENE IS INVOLVED. DISCUSSED WITH GUS
--- NOTE | 2020-09-09 10:41 | NUR ---
Nutrition: Pt admitted with AMS, UTI and seen due to wound notification. Familiar with pt from prior admit. Left inner thigh wound with prior wound vac followed by wound care. Hematoma S/P I&D last month. Required bipap overnight due to Hypercapnea. Previously had hospice services. Pt ate 100% of meals and ensure max supplements last month during admission. BMI 56, extreme class 3 obesity. Variable weights per hx, 430s-470s. Will follow for diet advancement and offer ensure max when this occurs. Place as low risk for now.
[2020-09-09 11:28] VITALS: BP 154/41
--- NOTE | 2020-09-09 13:24 | NUR ---
INITIAL ASSESSMENT: Received nursing referral. MURIEL reviewed chart and spoke with nursing and attending physician. Pt was admitted from [facility] due to AMS/UTI. Pt is currently on 8L of O2. Pt is on IV abx and IV steroids. Pt had negative COVID test. Wound care consulted. Pt came in with wound vac. SW met with pt at bedside. Introduced role of SW. Pt is alert/orientated. Pt reports he is normally on 4L of O2 at the facility. Pt is not ambulatory. Pt confirms that he was not on hospice prior to coming to the hospital. Pt was discharged back to [facility] from [facility] on 08/12/2020 as LTC. Pt has not been readmitted to hospice. Pt gave SW consent to contact his sister/DPOA, Heidi, to provide update. Pt confirms plan to return to [facility] when medically stable. MURIEL spoke with Heidi, via phone to provide update. Confirmed info received from pt and plan for discharge. MURIEL faxed clinical info to [facility]. Left voice message for Miracle in admissions. MURIEL also sent message to [facility] liaisonAlly. MURIEL is following to assist as needed with discharge planning.
--- NOTE | 2020-09-09 13:27 | NUR ---
SW reviewed chart and spoke with nursing and attending physician. Pt is progressing towards goals for discharge. Pt is on IV abx. Pt's diet advanced to full liquids today. Plan for outpatient colonoscopy in 4-6 weeks per GI. Pt will discharge home when medically stable. MURIEL is following to assist as needed with discharge planning.
[2020-09-09 16:08] VITALS: BP 150/57
--- NOTE | 2020-09-09 17:25 | NUR ---
ASSUMED PT CARE AT SHIFT CHANGE. PT CAN BE VERY AUDIBLE AND VERBAL WITH HIS EXHALED BREATH. PT HAS DECIDED THAT 'I MUST HAVE TAKEN TOO MUCH ATIVAN AND THAT'S WHY I WAS OUT OF IT EARLIER'. PT HAS DECIDED THAT HE IS OK TO LEAVE HOSPITAL AND IS UNSURE WHY THE PHYSICIAN IS KEEPING HIM HERE. WOUND PHYSICIAN REPLACED LEFT LEG WOUND VAC. PT HAD VISIT WITH SISTER EARLIER THIS AFTERNOON. PT NOW HAS HIS CELL PHONE IN HIS POSSESSION.
[2020-09-09 20:36] VITALS: BP 109/46
[2020-09-10 05:08] VITALS: BP 149/77
[2020-09-10 05:32] LABS: ABSOLUTE NEUTROPHILS 5.8 thou/uL (1.4-8.2); BASOPHILS 0.2 % (0.0-2.0); HEMATOCRIT 25.9 % (42.0-52.0); HEMOGLOBIN 7.8 gm/dL (14.0-18.0); LYMPHOCYTES 5.3 % (24.0-44.0); MCH 26.7 pg (26.0-34.0); MCHC 30.3 g/dL (28.0-37.0); MCV 88.4 fL (80.0-100.0); MONOCYTES 2.9 % (1.0-8.0); PLATELET COUNT 252 thou/uL (150-400); POLYS 91.6 % (36.0-66.0); RBC 2.93 mil/uL (4.50-6.00); RDW 18.6 % (10.5-14.5); WBC 6.3 thou/uL (4.0-11.0)
[2020-09-10 05:36] LABS: CALCIUM 8.3 mg/dL (8.5-10.1); CREATININE 1.3 mg/dL (0.7-1.3); MAGNESIUM 2.3 mg/dL (1.8-2.4); POTASSIUM 4.7 mmol/L (3.5-5.1)
--- NOTE | 2020-09-10 07:15 | NUR ---
PROGRESS PT A/O X4 YELLING OUT FOR ATTENTION MOST OF NIGHT VERY ANXIOUS ATIVAN GIVEN X2 WITH SLIGHT EFFECT PT SLEPT FOR APPROX. 2 HOURS. ON 6 LITERS O2 RT TX'S PRN. PT INCONTINENT OF URINE X2 BM X1. ON BIG BOY BED AND HOVER MAT REPOSITIONED NEEDED, WOUND VAC IN PLACE WITH GOOD SEAL AT 125CM SX. PT DENIES PAIN EXCEPT TO RIGHT HAND AND TAKES SCHEDULED GABAPENTIN FOR RELIEF.IV ABT'S ADMINISTERED ORDERED. VSS TELE INTACT CONTINUE POC.
[2020-09-10 07:49] VITALS: BP 147/58
--- NOTE | 2020-09-10 08:19 | EKG ---
[address] [address] ELECTROCARDIOGRAM REPORT Name: DEX BLACK Room #: 364-P ADM IN M.R.#: [id number] Admission: 09/09/20 Attend Phys: Matthew Costa MD Discharge: Date of : 55 Report #: [id number] [facility] ED Test Date: 2020-09-08 Test Time: 23:45:24 Pat Name: DEX BLACK Department: Room: 364 P Gender: M Meat Passer: aiyana : 1955 Requested By: Sudeep Ohara Order Number: [id number] MD: Juan Graves Measurements Intervals [place] Rate: 60 P: PA: QRS: -33 QRSD: 136 T: 108 QT: 416 QTc: 416 Interpretive Statements Atrial fibrillation Compared to ECG 09/01/2020 23:47:51 Left bundle-branch block now present Intraventricular conduction delay no longer present Myocardial infarct finding no longer present T-wave abnormality no longer present Possible ischemia no longer present Electronically Signed On 09-10-2020 8:19:01 CDT by Juan Graves [email or web address] <ELECTRONICALLY SIGNED> By: Juan Graves MD, [facility] 09/10/20 0819 [id number] Juan Graves MD, [facility] /EPI
[2020-09-10 11:08] VITALS: BP 142/82
--- NOTE | 2020-09-10 12:06 | NUR ---
IV TEAM PAGED. THIS RN UNABLE TO FIND ACCEPTABLE IV ACCESS FOR PT.
--- NOTE | 2020-09-10 15:12 | NUR ---
MURIEL reviewed chart and spoke with nursing and attending physician. Pt is progressing towards goals for discharge. No weekend discharge planned. PT/OT ordered today. Anxiety meds to be adjusted over the weekend. MURIEL spoke with pt's sister, Heidi, via phone to provide update. Heidi states that pt calls her multiple times each day due to anxiety. Heidi requests to speak with attending physician regarding med changes. Plan is for pt to return to [facility] when medically stable. MURIEL is following to assist as needed with discharge planning.
--- NOTE | 2020-09-10 15:55 | NUR ---
PT EARLIER REFUSED TO LET THIS RN CHANGE HIS BED FROM HIS INCONTINENCE EPISODE. THIS RN FURTHER EXPLAINED TO PT HE SHOULD NOT SIT IN HIS OWN WASTE IT WOULD START TO CAUSE SKIN BREAKDOWN. PT THEN AGREED TO BE CLEANED UP. BARRIED CREAM APPLIED. SKIN INTACT AT THIS TIME. PT HAS BEEN YELLING OUT AND STATING "I CAN'T BREATHE" THIS RN CONTACTED DR ARGUETA. NO FURTHER MEDICATION ORDERS AT THIS TIME. PT BREATHING RATE AND SPO2 WNL. PT CONTINUES TO BE AGITATED AND DEMANDED TO SPEAK WITH DR ARGUETA STATING, "I WANT TO GO HOME". THIS RN CONTACTED DR ARGUETA. THIS RN EXPLAINED TO PT THIS UNIT IS NOT 1:1 CARE AND ENCOURAGED PT TO CALL HIS SISTER OR OTHER FRIEND/FAMILY TO COME VISIT. PT VERBALIZED UNDERSTANDING AND STATED HE WOULD THINK ABOUT IT.
[2020-09-10 15:58] VITALS: BP 150/90
--- NOTE | 2020-09-10 16:03 | NUR ---
PGD DR MAGALLON/WOUND CARE FOR NEW WOUND VAC CANISTER, SPOKE WITH OLI
--- NOTE | 2020-09-10 18:44 | NUR ---
WOUND VAC CANISTER REPLACED. REPLACEMENT FOUND IN CS.
[2020-09-10 19:30] VITALS: BP 150/60
[2020-09-11 03:13] LABS: HEMATOCRIT 26.6 % (42.0-52.0); MCH 26.7 pg (26.0-34.0); MCHC 30.2 g/dL (28.0-37.0); MCV 88.4 fL (80.0-100.0); RBC 3.01 mil/uL (4.50-6.00); RDW 18.9 % (10.5-14.5); WBC 6.4 thou/uL (4.0-11.0)
[2020-09-11 03:21] LABS: CALCIUM 8.2 mg/dL (8.5-10.1); CREATININE 1.4 mg/dL (0.7-1.3); MAGNESIUM 2.3 mg/dL (1.8-2.4); POTASSIUM 4.8 mmol/L (3.5-5.1)
[2020-09-11 03:34] VITALS: BP 167/86
--- NOTE | 2020-09-11 04:10 | NUR ---
PT IS A/O X4 AND IS ON BED REST. IS CURRENTLY ON 5 LITERS OF 02 PER NC. APPEARS ANXIOUS AND IS YELLING OUT HELP ME OFTEN. C/O PAIN TO RIGHT LE. PRN PAIN MEDICATION GIVEN DIRECTED. REQUESTED PRN BRTX ONCE FOR C/O SHORTNESS OF AIR. PT IS RESTLESS AND HAS NOT SLEPT MUCH THIS NOC. IS INCONTINENT OF BOWEL AND BLADDER. VSS. AFEBRILE. FALL PRECAUTIONS IN PLACE, CALL LIGHT IS WITHIN REACH. WILL CONTINUE TO MONITOR.
[2020-09-11 07:27] VITALS: BP 160/85
[2020-09-11 11:03] VITALS: BP 173/78
[2020-09-11 19:31] VITALS: BP 153/59
[2020-09-12 00:20] VITALS: BP 153/59
[2020-09-12 04:01] VITALS: BP 166/85
--- NOTE | 2020-09-12 06:28 | NUR ---
PT RESTING COMFORTABLY ALL EVENING WITHOUT ANY OUTBURST. DONNIE BED IN PLACE AND FUNCTIONING. FOLLOWING POC WITH [address]ERY[address] WOUND VAC IN PLACE WITH 200ML OUT. CHANGED CANISTER ON VAC PUMP. HOVER MAT.
[2020-09-12 07:38] VITALS: BP 151/64
[2020-09-12 11:10] VITALS: BP 157/69
[2020-09-12 15:27] VITALS: BP 171/77
[2020-09-12 20:04] VITALS: BP 163/80
[2020-09-13 04:33] VITALS: BP 183/84
--- NOTE | 2020-09-13 06:16 | NUR ---
PT ARRIVED VIA BED FROM ICU. PT SETTLED WITH NO COMPLAINTS EXCEPT FOR BEING HUNGRY. FOLLOWING POC WITH NPO UNTIL VIDEO SWALLOW TODAY. PT IN ISOLATION FOR +COVID ON 09/04. VSS, NO FEVER, AND 02 SATURATION 95% ON 5L.
--- NOTE | 2020-09-13 06:40 | NUR ---
VSS OVERNIGHT. FOLLOWING POC WITH IVPB AND 02 SATURATION WHICH WAS 100 ON 4L. PT HAD COMPLAINT OF PAIN THE BOTTOM, RESUMED HOME MEDICATION OF HYDRO Q4 PRN. HOURLY ROUNDING.
[2020-09-13 07:17] VITALS: BP 164/73
[2020-09-13 11:06] VITALS: BP 173/67
[2020-09-13 13:05] LABS: HEMATOCRIT 29.1 % (42.0-52.0); HEMOGLOBIN 8.8 gm/dL (14.0-18.0); MCH 27.2 pg (26.0-34.0); MCHC 30.1 g/dL (28.0-37.0); MCV 90.5 fL (80.0-100.0); RBC 3.22 mil/uL (4.50-6.00); RDW 19.8 % (10.5-14.5); WBC 6.4 thou/uL (4.0-11.0)
[2020-09-13 13:15] LABS: CALCIUM 8.5 mg/dL (8.5-10.1); CREATININE 1.3 mg/dL (0.7-1.3); MAGNESIUM 2.1 mg/dL (1.8-2.4); POTASSIUM 4.9 mmol/L (3.5-5.1)
--- NOTE | 2020-09-13 13:47 | NUR ---
MURIEL reviewed chart and spoke with nursing and attending physician. Pt is medically stable for discharge back to [facility] today. MURIEL faxed clinical/therapy updates to the facility for review. Left voice message for Miracle in admissions, regarding insurance authorization. MURIEL met with pt at bedside to discuss discharge plan. Pt is aware and in agreement with discharge plan. Pt is hoping to discharge today. MURIEL explained facility will need insurance auth in order for pt to return as skilled. MURIEL is following to assist as needed with discharge planning.
[2020-09-13 16:06] VITALS: BP 182/73
[2020-09-13 19:45] VITALS: BP 136/79
[2020-09-14 05:18] VITALS: BP 164/78
--- NOTE | 2020-09-14 07:35 | NUR ---
Pt. requested for anxiety med at HS and again this am. Xanax given with good result. He slept fair during the night. O2 at 4L/NC and get short of breath with exertion. Incontinent of bladder , pt. cleaned for incontinence. Nystatin powder applied to abdominal folds , groin and armpits. Z guard applied to buttocks after each incontinence. Back of left knee with wound vac. Making progress towards discharge goals.
[2020-09-14 07:38] VITALS: BP 156/67
--- NOTE | 2020-09-14 08:52 | NUR ---
MURIEL reviewed chart. MURIEL left voice message for Miracle at [facility] requesting update on pt's insurance auth to return to the facility as skilled. Pt is medically stable for discharge. MURIEL faxed clinical[facility] to [facility]. Awaiting input from the [facility]acle and/or [facility]. MURIEL is following to assist as needed with discharge planning.
--- NOTE | 2020-09-14 11:06 | NUR ---
DISCHARGE NOTE: MURIEL reviewed chart and spoke with nursing and attending physician. Pt is medically stable for discharge back to [facility] today. MURIEL spoke with [facility] in admissons, who states they have insurance auth and can accept pt back today. MURIEL arranged ambulance transportation for 1300 via [facility]. MURIEL met with pt at bedside to provide update. Pt is aware and in agreement with discharge plan. MURIEL spoke with pt's sister, Heidi, via phone to provide update. Heidi is agreeable with plan. Chart copy requested. Nursing provided with number to call report. Awaiting finalized discharge orders/summary at this time. MURIEL is following to finalize discharge.
--- NOTE | 2020-09-14 13:41 | NUR ---
MIDLINE DC'D. SITE BRUISED. SITE HAS COMPRESSION DRESSING, DRY INTACT. PT BELONGINGS PACKED. PT READY FOR DC TO FACILITY.
[2020-09-14] MEDS ORDERED: ALPRAZOLAM 0.0.25 M1 PO (13:51)
[2020-09-14] MEDS ORDERED: MUCINEX600 MG PO (13:51)
[2020-09-14] MEDS ORDERED: CEFUROXIME500 MG PO (13:51)
[2020-09-14 14:30] VITALS: BP 156/67
--- NOTE | 2020-09-15 08:44 | HC ---
[facility] [place] [address] CONSULTATION Name: DEX BLACK Room #: 364-P [facility] IN M.R.#: [id number] Admission: 09/09/20 Attend Phys: Matthew Costa MD Discharge: 09/14/20 Date of : 55 Report #: [id number] THIS REPORT FOR: cc: Robinson Ha MD, Shyam MD Stephens,Jona Naranjo MD ~ DOC #: [id number] Jona Mart MD DATE OF SERVICE: 09/09/2020 WOUND CARE CONSULTATION PERSONAL PHYSICIAN: Dr. Ha. CHIEF COMPLAINT: Left lower extremity wound. HISTORY OF PRESENT ILLNESS: This is a 64-year-old morbidly obese male who was admitted for altered mental status and hypoxia from a detention. The patient most recently had surgical incision and drainage of an abscess behind his left knee. The patient is currently being treated with a negative pressure therapy to this. The patient states that he is tolerating negative pressure well. The patient is not here for his wound. The patient states he does feel somewhat better now after he has been on BiPAP now for the past 24 hours. The patient denies actual pain associated with the leg wound. The patient denies any other new wounds at this time. PAST MEDICAL HISTORY: Significant for morbid obesity, congestive heart failure, COPD, hypertension, previous CVA, obstructive sleep apnea, diabetes mellitus, hyperlipidemia, chronic AFib, recent lower extremity abscess with drainage, polyneuropathy, anxiety. CURRENT MEDICATIONS: Multiple, I reviewed the patient's medication list. DRUG ALLERGIES: SULFA AND CEFEPIME. SOCIAL HISTORY: The patient is a former smoker, quit greater than a year ago. Previous history of alcohol use, but none now. The patient is currently residing in a long-term care facility. FAMILY HISTORY: Not pertinent to current medical condition. REVIEW OF SYSTEMS: CONSTITUTIONAL: The patient denies fevers or chills. NEUROLOGIC: The patient ____ altered mental status. Denies headache at this time. EYES: No complaints. [facility] [address] [place] [address] CONSULTATION Name: DEX BLACK Room #: 364-P [facility] IN M.R.#: [id number] Admission: 09/09/20 Attend Phys: Matthew Costa MD Discharge: 09/14/20 Date of : 55 Report #: [id number] ENT: No complaints. CARDIAC: The patient has longstanding chronic edema. Denies chest pain or palpitation. RESPIRATORY: The patient does have complaint of shortness of breath, cough, and dyspnea on exertion. GASTROINTESTINAL: The patient denies nausea, vomiting, abdominal pain. GENITOURINARY: The patient denies urgency or frequency. MUSCULOSKELETAL: No complaints. SKIN: The patient has an open wound on the left popliteal fossa region. PHYSICAL EXAMINATION: VITAL SIGNS: Temperature 36.7, pulse 77, respirations 18, BP 154/41. GENERAL: This is a morbidly obese white male who is in no acute distress. HEENT: Normocephalic, atraumatic. Mucous membranes are somewhat dry. Pupils are round. Sclerae white. NECK: Supple with small amount of JVD. LUNGS: Diminished breath sounds heard throughout. HEART: Irregularly irregular. ABDOMEN: Obese, soft, nontender. EXTREMITIES: The patient had 3 to 4+ edema without weeping. Evaluation of left medial posterior popliteal fossa region reveals a surgical wound, which is clean, granulating with no signs of necrosis. There is a moderate amount of serosanguineous drainage noted without odor. There is no tunneling or undermining. Wound is otherwise intact. There are no signs of cellulitis. Distal neurovascular is otherwise intact. Bilateral heels are intact. NEUROLOGIC: Cranial nerves II through XII are grossly intact. Motor and sensory grossly intact. LABORATORY VALUES: White count 9.1, hemoglobin 8.6. BUN 27, creatinine 1.5, albumin 2.8. IMPRESSION: 1. Surgical wound, left medial/posterior popliteal fossa, status post incision and drainage of an abscess, overall stable. 2. Acute on chronic respiratory failure. 3. Diabetes mellitus. 4. Hypertension. 5. Generalized debility. 6. Protein calorie malnutrition, severe with albumin 2.8. 7. Obesity with generalized debility. PLAN: At this time, we will resume negative pressure wound VAC therapy 145 mmHg and black foam continuous pressure, change this three times weekly. We put the patient on a bariatric low air loss mattress having turned every 2 hours given his potential for breakdown. We will elevate his heels off the bed with [address] [address] CONSULTATION Name: DEX BLACK Room #: 364-P DIS IN [place].Jennifer.#: [id number] Admission: 09/09/20 Attend Phys: Matthew Costa MD Discharge: 09/14/20 Date of : 55 Report #: [id number] pillows. We will utilize physical and occupational therapy for strengthening. We will make sure we maximize the patient's oral protein supplementation for healing. We will continue all other current medications and continue to follow the patient. MD MILY Coates/AYO/HU <ELECTRONICALLY SIGNED> By: Jona Mart MD 09/15/20 0844 [id number] Jona Mart MD /nt
== END 2020-09-14 14:31 | DRG 871 ==
LOC: ER 23:13 → 3W 09-09 02:21 → EROBS 09-09 02:21 → 3W 09-09 04:17
PROVIDERS: Emergency Medicine; Nurse Practitioner; ADMIT Internal Medicine; ATTEND Internal Medicine
DX: A41.9 Sepsis, unspecified organism (principal); J96.01 Acute respiratory failure with hypoxia; G92 Toxic encephalopathy; E43 Unspecified severe protein-calorie malnutrition; J18.9 Pneumonia, unspecified organism; N17.0 Acute kidney failure with tubular necrosis; N39.0 Urinary tract infection, site not specified; E87.0 Hyperosmolality and hypernatremia; J44.1 Chronic obstructive pulmonary disease with (acute) exacerbation; I50.9 Heart failure, unspecified; Z20.822 Contact with and (suspected) exposure to COVID-19
CPT/HCPCS: 10879; 27000

== ENCOUNTER 2020-09-26 15:19 | Inpatient (IN) | payer OTHER, MEDICAID ==
[~2020-09-26] VITALS: Ht 152.4 cm; Wt 220.4 kg
--- NOTE | ~2020-09-26 | EMS ---
[facility] [address] [place] [address] EMS Patient Care Report Name: DEX BLACK Room #: 364-P ADM IN M.R.#: [id number] Admission: 09/26/20 Attend Phys: Fifi Clement MD Discharge: Date of : 55 Report #: [id number] THIS REPORT FOR: //name// Report Transmitted: 09/26/2020 23:23 EMS Care Summary [facility] MED-ACT Incident [id number] @ 09/26/2020 14:10 Incident Location [address] [address] Patient DEX BLACK Male, 65 Years 1955 Patient Address [address] [place] [address] Patient History Congestive Heart Failure (CHF),Chronic Obstructive Pulmonary Disease (COPD),Diabetes,Hypertension (HTN),Hyperlipidemia,Gastro-Esophageal Reflux Disease (GERD),Morbid Obesity,Urinary Tract Infection (UTI),Depression,Anemia,Hypokalemia,Chronic Kidney Disease,Novel Coronavirus (COVID-19), Patient Allergies Sulfa,Trimethoprim, Patient Medications Albuterol, Singulair, Ativan, Flomax, Colace, Xarelto, Benadryl, Digoxin, Ondansetron, Citalopram, Lantus, Gabapentin, Protonix, Prednisone, Carvedilol, Morphine, Nystatin, Hydrocodone, Lasix, Humalog, Chief Complaint Pt. has had a decline in mental status. Disposition Transported No Lights/[place] Dispatch Reason Sick Person Transported To [facility] [address] [place] [address] EMS Patient Care Report Name: DEX BLACK Room #: 364-P ADM IN M.R.#: [id number] Admission: 09/26/20 Attend Phys: Fifi Clement MD Discharge: Date of : 55 Report #: [id number] [facility] Narrative Arrived to find a morbidly obese 65 yr old male patient laying in his bed on a NRB in the care of S47 in no obvious acute distress. According to S47 the patient has had a decline in mental status and they have had a hard time keeping his oxygen saturation up. According to S47 the patient's oxygen saturation is in the mid 80s on a nasal cannula. Staff also reports the patient's lower legs are more swollen than normal. Patient has a non-healing wound with a wound vac on his left thigh. Patient is typically moved by a Ligia lift. Patient has been eating and drink. No nausea/vomiting/diarrhea, fever or chills. A; See assessment tab. Physical exam, vital signs, and patient placed on a NRB prior to our arrival. Staff used a Ligia lift to lift the patient and carry him out to the cot. Oxygen therapy continued. Moved to ambulance. En route to [facility]. Vital signs and ECG were monitored during transport. Patient rested on the cot, moaning at times during transport. We contacted [facility] on the [facility] You. Patient was alert with stable vital signs upon arrival at [facility]. Patient care was transferred to an ED RN. Due to the patient's size he was off-loaded in the ambulance bay and then moved into the hospital room. Patient requested ambulance transport to [facility]. Initial Vitals @14:39P: 122,R: 16,GCS: 13,Temp: 98F,SpO2: 100,AL Suspected: false @15:02P: 109,R: 16,BP: 98/75,GCS: 14,SpO2: 96,Revised Trauma: 12,AL Suspected: false @PTAP: 106,R: 16,BP: 125/55,Pain: 2/10,GCS: 14,Glucose: 94,SpO2: 95,Revised Trauma: 12,AL Suspected: false @14:51P: 110,R: 16,BP: 131/77,GCS: 14,SpO2: 94,Revised Trauma: 12,AL Suspected: false Assessments @14:36MENTAL:Unresponsive,Person Oriented,Place Oriented,Event Oriented,SKIN:HEENT:LUNG SOUNDS:Left Upper: Other,Right Upper: Other,Left Lower: Other,Right Lower: Other,ABDOMEN:Left Upper: Other,Right Upper: Other,Left Lower: Other,Right Lower: Other,PELVIS//GI:EXTREMITIES:Left Arm: Other,Right Arm: Edema,Right Arm: Paralysis,Left Leg: Edema,Left Leg: Other,Right Leg: Edema,PULSE:Radial: 2+ Normal,NEURO: Impression Sepsis/Septicemia [address] [address] EMS Patient Care Report Name: DEX BLACK Room #: 364-P ADM IN M.R.#: [id number] Admission: 09/26/20 Attend Phys: Fifi Clement MD Discharge: Date of : 55 Report #: [id number] Procedures @PTAOxygen FlowRate: 10 Device: Non Re-breather Mask (NRB) Response: UnchangedSucceeded Timeline BRAZER RESISTANCE,Oxygen FlowRate: 10 Device: Non Re-breather Mask (NRB) Response: UnchangedSucceeded, BRAZER RESISTANCE,BP: 125/55 M,PULSE: 106,RR: 16 R,SPO2: 95 Ox,ETCO2: ,B,PAIN: 2,GCS: 14, 14:01,Call Received 14:01,Psap Call 14:10,Dispatched 14:22,En Route 14:29,On Scene 14:34,At Patient 14:39,BP: / M,PULSE: 122,RR: 16 R,SPO2: 100 Ox,ETCO2: ,BG: ,PAIN: ,GCS: 13, 14:51,BP: 131/77 M,PULSE: 110,RR: 16 R,SPO2: 94 Ox,ETCO2: ,BG: ,PAIN: ,GCS: 14, 14:53,Depart Scene 15:02,BP: 98/75 M,PULSE: 109,RR: 16 R,SPO2: 96 Ox,ETCO2: ,BG: ,PAIN: ,GCS: 14, 15:04,At Destination 15:48,Call Closed Disclaimer v1.1 Copyright 2020 [employer] This EMS Care Summary contains data elements from the applicable legal record (which may be displayed differently). It is designed to provide pertinent information for the following purposes: continuity of care, clinical quality, and state data reporting. The complete legal record is available to ED staff and administrators of the receiving hospital in [employer]'s Patient Tracker. All data is provided "as is."
[~2020-09-26 15:19] MED LIST changes: +ALPRAZOLAM 0.0.25 M1 PO; +ATIVAN1 M1 PO; +MUCINEX600 MG PO
[2020-09-26 15:20] VITALS: BP 133/37
[2020-09-26 15:57] LABS: MCV 93.9 fL (80.0-100.0)
[2020-09-26 16:00] LABS: HEMATOCRIT 24.3 % (42.0-52.0); HEMOGLOBIN 7.3 gm/dL (14.0-18.0); MCHC 29.8 g/dL (28.0-37.0); PLATELET COUNT 98 thou/uL (150-400); RBC 2.59 mil/uL (4.50-6.00); RDW 20.2 % (10.5-14.5); WBC 10.1 thou/uL (4.0-11.0)
[2020-09-26 16:03] LABS: ANION GAP 5 mmol/L (7-16); BUN 34 mg/dL (7-18); CALCIUM 8.1 mg/dL (8.5-10.1); CHLORIDE 109 mmol/L (98-107); CO2 36 mmol/L (21-32); CREATININE 1.5 mg/dL (0.7-1.3); GLUCOSE 110 mg/dL (74-106); POTASSIUM 4.2 mmol/L (3.5-5.1); SODIUM 150 mmol/L (136-145)
[2020-09-26 16:04] LABS: BE(vivo) 9.3 mmol/L (-2 to +3); HCO3 34.9 mmol/L (22.0-26.0); PCO2 55.1 mmHg (35.0-45.0); PO2 263.8 mmHg (80.0-100.0); sO2 99.6 % (92.0-98.0)
[2020-09-26 16:13] LABS: ALBUMIN 2.4 g/dL (3.4-5.0); MAGNESIUM 1.8 mg/dL (1.8-2.4); SGOT 15 U/L (15-37); SGPT 25 U/L (16-63); TOTAL BILIRUBIN 0.6 mg/dL (0.2-1.0); TOTAL PROTEIN 5.6 g/dL (6.4-8.2); TROPONIN-I <0.06 ng/mL (<0.06)
[2020-09-26 17:13] LABS: URINE BILIRUBIN NEGATIVE (Negative); URINE BLOOD 3+ (Negative); URINE CLARITY CLEAR; URINE COLOR YELLOW; URINE GLUCOSE-RANDOM* NEGATIVE (Negative); URINE KETONES NEGATIVE (Negative); URINE PROTEIN (DIPSTICK) TRACE (Negative); URINE UROBILINOGEN 0.2 E.U./dl (0.2-1.0)
[2020-09-26 17:14] LABS: URINE LEUKOCYTES-REFLEX 2+ (Negative); URINE NITRITE-REFLEX POSITIVE (Negative)
[2020-09-26 17:27] LABS: ABSOLUTE NEUTROPHILS 8.9 thou/uL (1.4-8.2)
[2020-09-26 17:28] LABS: ANISOCYTOSIS 2+
[2020-09-26 17:29] VITALS: BP 133/37
[2020-09-26 17:30] LABS: CASTS None Seen /LPF (None Seen); CRYSTALS None Seen /LPF (None Seen); SQUAMOUS 0-3 Few /LPF (0-3)
[2020-09-26 17:31] LABS: BACTERIA-REFLEX 1-9 Few /HPF (None Seen)
[2020-09-26] MEDS ORDERED: APAP650 PO (18:02)
[2020-09-26] MEDS ORDERED: PROAIR HFA8.5 GM INH (18:03)
[2020-09-26] MEDS ORDERED: TESSALON PERLE100 M1 PO (18:04)
[2020-09-26] MEDS ORDERED: XANAX 0.25 MG0.25 MG PO (18:04)
[2020-09-26] MEDS ORDERED: CARVEDILOL25 MG PO (18:06)
[2020-09-26] MEDS ORDERED: IRON325 PO (18:07)
[2020-09-26] MEDS ORDERED: EUCERIN ADVANCE85 GM TOP (18:07)
[2020-09-26] MEDS ORDERED: CELEXA 20 MG TA20 MG PO (18:07)
[2020-09-26] MEDS ORDERED: GABAPENTIN 100100 MG PO (18:08)
[2020-09-26] MEDS ORDERED: FUROSEMIDE 20 M20 MG PO (18:08)
[2020-09-26] MEDS ORDERED: FLONASE 0.05%50 MCG NARES (18:08)
[2020-09-26] MEDS ORDERED: GUAIFENESIN DM1 EACH PO (18:09)
[2020-09-26] MEDS ORDERED: CLARITIN10 MG PO (18:10)
[2020-09-26] MEDS ORDERED: CULTURELLE KID1 EAC1 PO (18:10)
[2020-09-26] MEDS ORDERED: LANTUS SUBQ (18:10)
[2020-09-26] MEDS ORDERED: NORCO5 PO (18:10)
[2020-09-26] MEDS ORDERED: MIRALAX119 GM PO (18:11)
[2020-09-26] MEDS ORDERED: ASMANEX HFA13 G1 INH (18:11)
[2020-09-26] MEDS ORDERED: MONTELUKAST SODI4 M1 PO (18:12)
[2020-09-26] MEDS ORDERED: MYLANTA MAXIMU355 ML PO (18:12)
[2020-09-26] MEDS ORDERED: NOVOLOG100 UNIT/M SUBQ ×2 (18:13→18:16)
[2020-09-26] MEDS ORDERED: NYSTATIN1 EA10 TOP (18:16)
[2020-09-26] MEDS ORDERED: CALCIUM 500 +1 EAC5 PO (18:17)
[2020-09-26] MEDS ORDERED: PREDNISONE 20 M20 MG PO (18:17)
[2020-09-26] MEDS ORDERED: ZOFRAN ODT4 MG PO (18:17)
[2020-09-26] MEDS ORDERED: PROTONIX40 M2 PO (18:17)
[2020-09-26] MEDS ORDERED: SENNA8.6 MG PO (18:18)
[2020-09-26] MEDS ORDERED: FLOMAX0.4 MG PO (18:18)
[2020-09-26] MEDS ORDERED: TRIAMCINOLONE A15 G1 TOP (18:19)
[2020-09-26] MEDS ORDERED: ZINC-22050 MG PO (18:20)
[2020-09-26] MEDS ORDERED: HYDROCODON-ACE1 EAC7 PO (19:31)
[2020-09-26] MEDS ORDERED: CHEST CONGESTI400 MG PO (19:33)
[2020-09-26] MEDS ORDERED: SINGULAIR 10 MG10 MG PO (19:35)
[2020-09-26] MEDS ORDERED: NF (19:38)
--- NOTE | 2020-09-26 20:05 | NUR ---
Pt loudly yelling "Ow, help me, help me" audible through closed door. When this commercial lines underwriter entered the pt's room to inquire why he was yelling and what he needed, he responded that "yelling is fun" and that he "was okay". This commercial lines underwriter asked pt not to scream so loud as to continue disturbing other patients in the department. The door to the pt's room was closed again. Within two to three minutes of that time, the patient again began to scream the same "Help me, help me". At that time, another nurse asked the pt why he was screaming, to which he replied "I don't know".
[2020-09-26 20:27] VITALS: BP 138/90
[2020-09-26 21:12] VITALS: BP 72/50
[2020-09-27 04:56] VITALS: BP 112/45
[2020-09-27 05:17] LABS: HEMATOCRIT 22.2 % (42.0-52.0); HEMOGLOBIN 7.2 gm/dL (14.0-18.0); MCH 29.5 pg (26.0-34.0); MCHC 32.3 g/dL (28.0-37.0); MCV 91.2 fL (80.0-100.0); RBC 2.43 mil/uL (4.50-6.00); RDW 19.6 % (10.5-14.5); WBC 8.9 thou/uL (4.0-11.0)
[2020-09-27 05:28] LABS: CALCIUM 8.1 mg/dL (8.5-10.1); CREATININE 1.6 mg/dL (0.7-1.3)
[2020-09-27 05:30] LABS: POTASSIUM 5.2 mmol/L (3.5-5.1)
--- NOTE | 2020-09-27 07:24 | NUR ---
admit pt admitted to room 364 via ed for cellulitis, wound vac to left inner thigh removed wound measured and wet to dry drsg placed. iv to left neck was pulled out by pt ivf's infusing into iv in lw. awaiting delivery of bariatric bed pt on 4 liters o2. continue poc.
[2020-09-27 08:00] VITALS: BP 109/59
--- NOTE | 2020-09-27 10:49 | NUR ---
Assess due to notification of left inner thigh wound with need for wound vac. Class III extreme obesity, BMI 94. Pt with multiple, chronic morbidities and several past hospital admissions. Wts usually 430-470's, now 489 with fluid overload. Palliative care has been recommended in past. Has code of full code, no intubation. Can offer low diaz, high protein supplement of ensure max. Otherwise, consider low nutrition risk with appropriate nutrition interventions in place.
[2020-09-27 11:07] VITALS: BP 94/53
--- NOTE | 2020-09-27 15:29 | NUR ---
INITIAL ASSESSMENT: Received nursing referral. MURIEL reviewed chart and spoke with nursing and attending physician. Pt was admitted from [facility] due to cellulitis/fluid overload. Pt is currently on 4L of O2. Pt is on IV abx, IV lasix and IV steroids. Pt had negative COVID test. Wound care consulted. Pt came in with wound vac. MURIEL met with pt at bedside. Introduced role of SW. Pt is alert/orientated. Pt reports he is normally on 4L of O2 at the facility. Pt is not ambulatory. Pt confirms that he was not on hospice prior to coming to the hospital. Pt has been on service with hospice in the past. Pt confirms plan to return to [facility] when medically stable. MURIEL faxed clinical info to [facility]. Spoke with Miracle in admissions, who confirms they are able to accept pt back when medically stable. Per Miracle, she will check to confirm if pt was using his skilled benefit. MURIEL sent message to NIRAJ RN to confirm pt's insurance. Pt shows having Medicare as primary. In the past, pt has had a [facility] policy. MURIEL is following to assist as needed with discharge planning.
[2020-09-27 15:44] VITALS: BP 127/59
[2020-09-27 20:25] VITALS: BP 127/68
--- NOTE | 2020-09-28 00:02 | NUR ---
PT IS A&XO4. C/O BILAT LEG PAIN. LEFT MEDIAL THIGH WOUND WEEPING YELLOW DRAINAGE. IV ABX INFUSING PER EMAR ORDERS. PT DENIES ANY SIGNIFICANT SOA. REPORT GIVEN TO ONCOMING NURSE AROUND 2229. PT PROGRESSING SLOWLY TOWARD POC GOALS.
[2020-09-28 04:55] VITALS: BP 119/66
[2020-09-28 06:05] LABS: HEMATOCRIT 21.6 % (42.0-52.0); HEMOGLOBIN 6.6 gm/dL (14.0-18.0); MCH 27.1 pg (26.0-34.0); MCHC 30.5 g/dL (28.0-37.0); MCV 88.8 fL (80.0-100.0); RBC 2.44 mil/uL (4.50-6.00); RDW 19.6 % (10.5-14.5); WBC 11.8 thou/uL (4.0-11.0)
[2020-09-28 06:09] LABS: CALCIUM 8.1 mg/dL (8.5-10.1); CREATININE 1.5 mg/dL (0.7-1.3); POTASSIUM 4.3 mmol/L (3.5-5.1)
[2020-09-28 07:52] VITALS: BP 122/78
--- NOTE | 2020-09-28 07:52 | HC ---
[facility] [place] [address] CONSULTATION Name: DEX BLACK Room #: 364-P ADM IN M.R.#: [id number] Admission: 09/26/20 Attend Phys: Fifi Clement MD Discharge: Date of : 55 Report #: [id number] THIS REPORT FOR: cc: Robinson Ha MD, Shyam MD Barry,Juan Frye MD ~ DOC #: [id number] Juan Guzman MD DATE OF SERVICE: 09/26/2020 INFECTIOUS DISEASE CONSULTATION ATTENDING PHYSICIAN: Dr. Clement. REASON FOR EVALUATION: Febrile illness, likely left lower extremity cellulitis as well as a complicated urinary tract infection, possible aspiration pneumonitis as well. HISTORY OF PRESENT ILLNESS: A 65-year-old gentleman with morbid obesity, lot of his issues arise from that, has underlying COPD, cardiomyopathy with congestive heart failure, previous stroke. He notes he had what appeared to be spontaneous in onset of left lower extremity inflammatory eruption apparently not preceded any antecedent injury, became quite painful. Subsequently, noted some more difficulty with dyspnea. He is maintained currently on 4 liters per nasal cannula at his baseline. Due to the tenuous nature of his situation, the fact that he has been hospitalized multiple times in the last several months, he was again evaluated in the emergency room, was found to have ongoing hypoxemia, required a nonrebreather mask initially. Sodium 150. BNP of 2121. Chest x-ray showed enlarged heart, bilateral hazy interstitial infiltrates. Urinalysis did show marked pyuria as well. Due to concern about a multifocal infection, he was empirically started on combination of broad-spectrum therapy with vancomycin and Zosyn. Clinically, he is improved. Initial temperature was 102.2, now 98.9. He still complains of left lower extremity pain. In addition to that, he has ongoing back issues and states he needs a bariatric bed which has been ordered. He is generally lucid. ALLERGIES: LISTED TO BACTRIM, CEFEPIME CAUSES A RASH. CURRENT MEDICATIONS: Include tamsulosin, calcium, zinc, montelukast, citalopram, carvedilol, prednisone 40 daily, vancomycin, Zosyn, insulin, ipratropium, albuterol inhaler, alprazolam as needed, p.r.n. analgesics. PAST MEDICAL HISTORY: As noted above, history of diabetes mellitus, insulin requiring with complications including vasculopathy; previous stroke, has cardiomyopathy with congestive heart failure, COPD, acute on chronic hypoxemic respiratory failure, hypertension, obstructive sleep apnea, [place] [address] CONSULTATION Name: DEX BLACK Room #: 364-P ADM IN M.R.#: [id number] Admission: 09/26/20 Attend Phys: Fifi Clement MD Discharge: Date of : 55 Report #: [id number] fibrillation, anemia, reflux, BPH, anxiety, depression, history of PE. SOCIAL HISTORY: Former smoker, past ethanol, no illicit drug use recently. FAMILY HISTORY: Noncontributory. REVIEW OF SYSTEMS: Otherwise, unremarkable 10-point review of systems. PHYSICAL EXAMINATION: GENERAL: Appears chronically ill, undernourished. He is morbidly obese. He does respond appropriately. VITAL SIGNS: Temperature 98.9 with a T-max overnight of 102.2, pulse is 99, down from 120; respirations 18, blood pressure 109/59. SKIN: Warm, somewhat diaphoretic. HEENT: Nasal cannula in place. Extraocular muscles intact. NECK: Thick and supple. LUNGS: Diminished breath sounds. Few scattered crackles. HEART: Irregular. I do not appreciate a murmur, although distant. ABDOMEN: Morbidly obese, large pannus, firm, nontender. EXTREMITIES: Lower extremity has moderate marked inflammatory changes. Noted to be below the knee taut edema. GENITOURINARY AND RECTAL: Deferred. LABORATORY DATA: Blood cultures sterile thus far. Electrolytes: Sodium 147, potassium 5.3, chloride 108, bicarbonate 33, anion gap of 6, BUN and creatinine 38 and 1.6, glucose of 105. CBC: White count 8.9, H and H 7.2 and 22.2, platelets of 147. Coronavirus testing negative. Sed rate of 52. Urinalysis: 1625 white cells, 1-9 bacteria. Chest x-ray, cardiomegaly, bilateral infiltrates. Lactic acid 1.1. Review of recent cultures, had isolation of Pseudomonas from the urine September 02, that was in vitro susceptible to Zosyn. ASSESSMENT AND PLAN: Febrile illness, likely multifactorial including left lower extremity skin and soft tissue infection with cellulitis, presumably gram-positive secondary to complicated urinary tract infection, suspect gram-negative pseudomonas; thirdly, may have some degree of pneumonitis, although it is difficult to ascertain given his underlying potential for congestive heart failure and pulmonary edema. We will continue broad spectrum combination therapy at this point. Seemingly has improved at least marginally since his admission. He is certainly at risk for additional complications, noted there has been a long running discussion about whether he would be more appropriate for palliative care, although he is disinclined at this point to pursue that. Continue to monitor expectantly, could potentially add compression to his leg elevation, although I would be concerned about exacerbation of his pulmonary status. Try to optimize his nutrition maintain him in a bariatric bed. We will add incentive spirometry. [facility] [address] [place] [address] CONSULTATION Name: GEORGESNANCYDEX Damon Room #: 364-P ADM IN M.R.#: [id number] Admission: 09/26/20 Attend Phys: Fifi Clement MD Discharge: Date of : 55 Report #: [id number] Juan Guzman MD JWB/RAY <ELECTRONICALLY SIGNED> By: Juan Guzman MD 09/28/20 0752 0823 99 Juan Guzman MD /nt
[2020-09-28 11:43] VITALS: BP 120/48
--- NOTE | 2020-09-28 14:10 | NUR ---
MURIEL reviewed chart and spoke with nursing and attending physician. Pt is on 4L of O2 and on IV abx. Pt to have blood transfusion today. MURIEL notified that pt has Medicare as primary insurance. Will not need insurance authorization to return to his facility as skilled. MURIEL faxed clinical/therapy updates to [facility] for review. Plan is for pt to return to [facility] when medically stable. MURIEL is following to assist as needed with discharge planning.
[2020-09-28 16:28] VITALS: BP 120/48; BP 125/65
[2020-09-28 20:35] VITALS: BP 119/70
[2020-09-28 23:03] LABS: HEMATOCRIT 22.8 % (42.0-52.0)
[2020-09-29 04:54] VITALS: BP 138/60
--- NOTE | 2020-09-29 08:03 | NUR ---
PT IS A/0X4. POC IS IVPB ANTIBIOTICS. NOTICE AFTER GIVING VANCO PT DEVELOPED RED RASH. PT WAS GIVEN PREDNISONE AND INFORMATION PASSED ONTO DAY NURSE. I UNIT OF PRBC WAS GIVEN. PREVIOUS HgB 6.6 AND POST TRANSFUSION HgB 7.0. PT IS ON DONNIE BED. WOUND VAC IN PLACE WITH 300ML OUTPUT OVERNIGHT. BRITTON IN PLACE. PT WILL ASK FOR HIS PRN XANAX. HOURLY ROUNDING.
[2020-09-29 08:26] VITALS: BP 138/62
[2020-09-29 11:37] VITALS: BP 134/78
--- NOTE | 2020-09-29 13:06 | HC ---
[facility] [place] [address] CONSULTATION Name: DEX BLACK Room #: 364-P ADM IN M.R.#: [id number] Admission: 09/26/20 Attend Phys: Fifi Clement MD Discharge: Date of : 55 Report #: [id number] THIS REPORT FOR: cc: Robinson Ha MD, Shyam MD Althoff,Sylvester Caballero MD ~ DOC #: [id number] Sylvester Peters MD DATE OF SERVICE: 09/27/2020 CHIEF COMPLAINT: Surgical wound to the left thigh area. HISTORY OF PRESENT ILLNESS: This is a 65-year-old male patient with whom I am familiar from previous hospitalizations. He has had a surgical wound to his left medial thigh, status post incision and drainage and evacuation of hematoma by Dr. Yeager on 08/08/2020. We have managed him in the hospital and then he has continued management of the wound out of the hospital with a wound VAC. We have been asked to see him again with regard to ongoing wound care while here in the hospital. PAST MEDICAL HISTORY: Significant for history of volume overload, acute on chronic respiratory failure/chronic obstructive pulmonary disease, morbid obesity, diabetes mellitus, hypertension, chronic atrial fibrillation, history of GI bleeding, pulmonary hypertension, chronic kidney disease, depression, anxiety. ALLERGIES: INCLUDE SULFA, CEFEPIME. MEDICATIONS: Acetaminophen, albuterol, alprazolam, Tessalon Perles, Os-Luis, Coreg, Celexa, Eucerin cream, ferrous sulfate, Flonase, furosemide, Neurontin, hydrocodone, insulin, loratadine, Mylanta, mometasone inhaler, Singulair, nystatin powder, Zofran, Protonix, MiraLax, prednisone, Flomax, zinc sulfate. SOCIAL HISTORY: The patient lives in a nursing care facility. He is a former smoke in the past. He has consumed alcohol in the past. FAMILY HISTORY: Positive for diabetes and hypertension. REVIEW OF SYSTEMS: CONSTITUTIONAL: The patient denies fever, chills or weight loss. NEUROLOGICAL: The patient denies focal weakness, numbness or tingling. HEENT: The patient denies visual changes, redness or drainage. ENT: The patient denies earache, nasal drainage, sore throat. CARDIOVASCULAR: No chest pain, palpitations, diaphoresis. PULMONARY: The patient denies cough, shortness of breath. GASTROINTESTINAL: Denies nausea, vomiting or abdominal pain. [facility] [address] [place] [address] CONSULTATION Name: DEX BLACK Room #: 364-P [facility]#: [id number] Admission: 09/26/20 Attend Phys: Fifi Clement MD Discharge: Date of : 55 Report #: [id number] ORTHOPEDIC: The patient is aware and has some pain involving the wound involving his left thigh area. Others systems on a 14-point review of systems are negative. PHYSICAL EXAMINATION: VITAL SIGNS: At this time include temperature 37.6, pulse 81, respiratory rate of 20, blood pressure 127/49. GENERAL: This is a well-developed, well-nourished male patient appears to be in minimal distress. HEENT: Head, normocephalic. Nose and throat are clear. NECK: Supple. LUNGS: Diminished. Heart: Irregular. ABDOMEN: Obese, soft, nontender. EXTREMITIES: Demonstrate surgical wound to the left medial thigh. It is actually very healthy clean, granulating, does not show evidence of infection. There is no deep structures exposed. It is improved since the last time I saw him. NEUROLOGIC: The patient is alert, oriented, appropriate. LABORATORY DATA: White blood cell count 8.9 with a hemoglobin of 7.2. Sodium 147, potassium 5.2, chloride 108, CO2 of 33, BUN 38, creatinine 1.6, glucose 105, albumin 2.4. CLINICAL IMPRESSION: 1. Surgical wound of the left medial thigh, status post previous debridement on 08/11/2020. 2. Acute on chronic diastolic heart failure. 3. Acute on chronic hypoxemic hypercapnic respiratory failure. 4. Obstructive sleep apnea. 5. Chronic obstructive pulmonary disease. 6. Pulmonary hypertension. 7. Chronic kidney disease. 8. Permanent atrial fibrillation on anticoagulation. 9. Hypertension. 10. Type 2 diabetes mellitus. 11. Super morbid obesity. RECOMMENDATIONS: At this point in time, we will recommend continuation of KCI wound VAC will likely apply ____ use of moist gauze dressing, quarter strength Dakin's moist dressing with packing today. We will get him set up on a wound VAC tomorrow, and would likely continue this on an outpatient basis. He will need aggressive nutritional support to both enhance wound healing as well as ____. [address] [place] [address] CONSULTATION Name: GEORGESNANCYDEX Damon Room #: 364-P [facility] IN M.R.#: [id number] Admission: 09/26/20 Attend Phys: Fifi Clement MD Discharge: Date of : 55 Report #: [id number] Sylvester Peters MD JRA/ALL <ELECTRONICALLY SIGNED> By: Sylvester Peters MD 09/29/20 1306 1610 0014 Sylvester Peters MD /nt
--- NOTE | 2020-09-29 13:07 | NUR ---
MURIEL reviewed chart and spoke with nursing and attending physician. Pt is slowly progressing towards goals for discharge. Pt remains on 3L of O2. Pt is on IV abx and has wound vac in place. Pt may have EGD prior to discharge. Awaiting input from GI. MURIEL faxed clinical/therapy updates to [facility]. MURIEL spoke with pt's sister, Heidi, via phone to provide update. Confirmed plan is for pt to return to [facility] SNF when medically stable. MURIEL also confirmed with Heidi, that pt has Medicare as primary insurance, as of 09/21/2020. Pt's sister requested to speak with attending physician. MURIEL notified attending physician. MURIEL is following to assist as needed with discharge planning.
[2020-09-29 15:04] LABS: HEMOGLOBIN 7.4 gm/dL (14.0-18.0)
[2020-09-29 15:58] LABS: ABSOLUTE RETIC COUNT 0.1111 10^6/uL; OBSERVED RETIC COUNT 4.17 % (0.6-2.6)
[2020-09-29 16:04] VITALS: BP 140/72
[2020-09-29 16:40] LABS: FOLIC ACID 9.9 ng/mL (8.6-58.9)
--- NOTE | 2020-09-29 18:38 | NUR ---
ASSUMED PATIENT CARE AT 0700. A/O X3. DROWSY. VSS.TOLERATED ON 3L. NO BM ON THIS SHIFT. RASH NOTED ON CHEST AND BUE. SLOWLY TOWARDS POC GOALS.
[2020-09-29 20:43] VITALS: BP 111/59
[2020-09-30 04:15] VITALS: BP 139/60
[2020-09-30 07:58] VITALS: BP 110/49
--- NOTE | 2020-09-30 08:08 | NUR ---
WOUND VAC CANISTER CHANGED. POC WITH IVPB VANCO AND ZOSIN. PRN XANAX AND NORCO GIVEN. PT IS ON DONNIE BED. RIGHT SIDE WEAKNESS DUE TO PREVIOUS CVA. HOURLY ROUNDING.
--- NOTE | 2020-09-30 13:48 | NUR ---
MURIEL reviewed chart and spoke with nursing and attending physician. Pt is progressing towards goals for discharge. Pt is on 3L of O2 and IV abx. Discharge back to [facility] SNF is anticipated in 1-2 days. MURIEL faxed updated clinical/therapy info to [facility]. Left voice message for Miracle in admissions. MURIEL is following to assist as needed with discharge planning.
[2020-09-30 15:58] VITALS: BP 93/59
[2020-09-30 16:34] LABS: CALCIUM 7.7 mg/dL (8.5-10.1); CREATININE 1.6 mg/dL (0.7-1.3); POTASSIUM 4.2 mmol/L (3.5-5.1)
[2020-09-30 16:38] LABS: % SATURATION 8 % (20-39); IRON 19 ug/dL (65-175); TIBC 235 ug/dL (250-450)
[2020-09-30 20:45] VITALS: BP 134/64
[2020-10-01 03:18] LABS: URINE BILIRUBIN NEGATIVE (Negative); URINE BLOOD NEGATIVE (Negative); URINE CLARITY SL CLOUDY; URINE COLOR YELLOW; URINE GLUCOSE-RANDOM* NEGATIVE (Negative); URINE KETONES NEGATIVE (Negative); URINE LEUKOCYTES 1+ (Negative); URINE NITRITE NEGATIVE (Negative); URINE PROTEIN (DIPSTICK) NEGATIVE (Negative); URINE SPECIFIC GRAVITY 1.015 (1.005-1.035); URINE UROBILINOGEN 0.2 E.U./dl (0.2-1.0)
[2020-10-01 03:34] LABS: SQUAMOUS None Seen /LPF (0-3)
[2020-10-01 03:35] LABS: AMORPHOUS URATES Many /LPF (None Seen); CASTS None Seen /LPF (None Seen); MUCUS 0-3 Light strn/LPF (None Seen); URIC ACID CRYSTALS >10 Many /LPF (None Seen); URINE RBC 1-2 Rare /HPF (NONE SEEN)
--- NOTE | 2020-10-01 04:07 | NUR ---
ASSUMED CARE OF PATIENT AT 1900. STOOL AND URINE SAMPLES SENT PER ORDERS. COMPLETE BED BATH GIVEN, PATIENT HAD LARGE STOOL AT THAT TIME. RASH REMAINS ON CHEST AND ARMS. TOPICAL OINTMENT APPLIED ORDERED. [facility], PHARMACY NOTIFIED THEY ARE MANAGING IT. DOSE GIVEN AT 0100 PER PHARMACY. WORKING TOWARDS POC GOALS.
[2020-10-01 05:03] VITALS: BP 117/64
[2020-10-01 07:48] VITALS: BP 128/58
[2020-10-01 08:21] LABS: HEMATOCRIT 22.4 % (42.0-52.0)
[2020-10-01] MEDS ORDERED: IPRAT-ALBUT 0.5-3 ML INH (10:51)
[2020-10-01] MEDS ORDERED: LASIX 40 MG TAB40 MG PO (10:51)
[2020-10-01] MEDS ORDERED: PREDNISONE 20 M20 MG PO (10:51)
[2020-10-01] MEDS ORDERED: MEROPENEM1 GM IV (10:51)
--- NOTE | 2020-10-01 10:52 | NUR ---
DISCHARGE NOTE: MURIEL reviewed chart and spoke with nursing and attending physician. Pt to have PICC line placed today prior to discharge. Pt will need IV abx. Pt will also have orders to have wound vac upon return to [facility]. MURIEL met with pt at bedside to discuss discharge plan. Pt is aware and in agreement with plan. MURIEL left voice message for Miracle in admissions at [facility] to notify of pt's discharge. Ambulance form faxed to [facility]. Awaiting finalized discharge ppwk at this time. Chart copy requested. MURIEL is following to finalize discharge plan.
[2020-10-01 12:15] LABS: ALBUMIN 1.9 g/dL (3.4-5.0); CALCIUM 8.2 mg/dL (8.5-10.1); CREATININE 1.6 mg/dL (0.7-1.3); POTASSIUM 4.4 mmol/L (3.5-5.1); TOTAL BILIRUBIN 0.4 mg/dL (0.2-1.0); TOTAL PROTEIN 5.9 g/dL (6.4-8.2)
[2020-10-01 16:31] VITALS: BP 118/56
[2020-10-01 16:51] VITALS: BP 110/64; BP 118/56
--- NOTE | 2020-10-01 17:33 | NUR ---
plans for discharge at 1900. wound vac removed and wet [address] transfusing 1 unit prbc per physician order. anticipate transport at 1900. Left IJ placed by IV team for course of antibiotic at [facility].
[2020-10-01 18:08] VITALS: BP 117/63
[2020-10-01 20:28] VITALS: BP 114/57
--- NOTE | 2020-10-01 22:03 | NUR ---
pt left the building at 2132 approx with steve. he took his merropenen and his lantus and his liispro insulin before leaving. he has been on the phone telling his that he wants her to order miracle Hi-Midia x2 for him as soon as he get back to his facility. he is alert and oriented at time of discharge. all belongings sent with patient.
--- NOTE | 2020-10-02 11:38 | NUR ---
VAT CONSULTED FOR A PICC FOR LT IV ABX, PT HAS A RAISED RASH OVER MOST OF HIS UPPER BODY AND IS MORBIDLY OBESE. HX OF CVA WITH RESIDUAL IN RT ARM, LT ARM PICC NOT THREADING, DUE TO TIME OF DAY AND PT NEEDING TO DC SOON AND IR NOT AVAILABLE HIS LT IJ WAS ACCESSED X1 ATTEMPT WITH US GUIDE. A 4FRSLPICC PLACED AND CXR REVEALED TIP AT THE CAJ. PT DC'D WITH IJ CM NOTIFIED OF NEED FOR IJ OVER A PICC
--- NOTE | 2020-10-05 20:06 | PATH ---
[facility] [address] [place] [address] PATHOLOGY RPT PROCEDURE Name: DEX AWAD Room #: 364-P DIS IN M.R.#: [id number] Admission: 09/26/20 Date of : 55 Discharge: 10/01/20 Report #: [id number] Path Case #: [id number] [facility] Accession Number: [id number] . 01 Material submitted: . abdomen - PUNCH BIOPSY SKIN ABDOMEN . 01 Clinical history: . ALLERGIES TO SULFAMETHOXAZOLE,TRIMETHOPRIM,PIPERACILLIN,CEFEPIME R/O PSORIASIS VS. ACUTE GENERALIZED EXANTHEMATOUS PUSTULOSIS CELLULITIS . 02 Diagnosis: Skin, abdomen, punch biopsy: - Pustular dermatitis (see comment). (ELIS:joseph; 10/05/2020) [facility] 10/05/2020 1738 Local . 02 Comment: The case was evaluated with additional deeper levels as well as with 2 special stains, both performed with appropriate positive controls, which yielded the following results: . PAS fungus: Negative. Gram stain: Negative. . Sections show a pustular dermatitis characterized by subcorneal pustules and a mixed superficial dermal inflammatory infiltrate. The histologic differential diagnosis for this pattern of inflammation would include pustular psoriasis versus acute generalized exanthematous pustulosis versus subcorneal pustular dermatosis. There is no evidence of an underlying vasculitis ruling out a pustular vasculitis. There is also no evidence to support a pustular Sweets syndrome, a dermatophyte or bullous impetigo. Please correlate clinically. . Special stains: PAS fungus, gram stain. . (SAS:soc analyst; 10/05/2020) . 02 Electronically signed: . Aleshia Mejias MD, Pathologist NPI- [id number] . 01 Gross description: . Received in formalin labeled "Dex Awad, abdomen" is a skin punch biopsy measuring 0.3 cm in diameter and 0.3 cm in depth. The skin surface displays a faint samano-yellow lesion measuring 0.2 x 0.2 [place] [id number] PATHOLOGY RPT PROCEDURE Name: DEX AWAD Room #: 364-P DIS IN M.R.#: [id number] Admission: 09/26/20 Date of : 55 Discharge: 10/01/20 Report #: [id number] Path Case #: [id number] inked and the specimen is submitted without sectioning in A1. [place] [place] 10/03/2020[place] [facility] 10/03/2020 1056 Local . 02 Pathologist provided ICD-10: L30.9 . 02 CPT . 648442, 126396, [id number] Specimen Comment: A courtesy copy of this report has been sent to [phone], [phone] Specimen Comment: [id number] Specimen Comment: Report sent to / DR HA Performed at: 01 [facility] [address], [place] [id number] MD Raúl Nair MD Phone: [phone] Performed at: 02 [facility] [address] [id number] MD Aleshia Mejias MD Phone: [phone]
== END 2020-10-01 22:16 | DRG 602 ==
LOC: ER 15:19 → 3W 18:05 → EROBS 18:05 → 3W 20:28
PROVIDERS: Hospitalist; Physician Assistant; Specialist; ADMIT Internal Medicine; ATTEND Internal Medicine
PROC: 30233N1 Transfusion of Nonautologous Red Blood Cells into Peripheral Vein, Percutaneous Approach (ICD-10-PCS; principal; 2020-09-28)
PROC: 02HV33Z Insertion of Infusion Device into Superior Vena Cava, Percutaneous Approach (ICD-10-PCS; 2020-10-01)
DX: L03.116 Cellulitis of left lower limb (principal); J96.21 Acute and chronic respiratory failure with hypoxia; I50.33 Acute on chronic diastolic (congestive) heart failure; G92 Toxic encephalopathy; E43 Unspecified severe protein-calorie malnutrition; J96.22 Acute and chronic respiratory failure with hypercapnia; I13.0 Hypertensive heart and chronic kidney disease with heart failure and stage 1 through stage 4 chronic kidney disease, or unspecified chronic kidney disease; N39.0 Urinary tract infection, site not specified; K92.2 Gastrointestinal hemorrhage, unspecified; I48.21 Permanent atrial fibrillation; N17.9 Acute kidney failure, unspecified; E87.0 Hyperosmolality and hypernatremia; J44.1 Chronic obstructive pulmonary disease with (acute) exacerbation; Z68.45 Body mass index [BMI] 70 or greater, adult; I69.351 Hemiplegia and hemiparesis following cerebral infarction affecting right dominant side; L03.115 Cellulitis of right lower limb; E66.01 Morbid (severe) obesity due to excess calories; G47.33 Obstructive sleep apnea (adult) (pediatric); E78.5 Hyperlipidemia, unspecified; N18.9 Chronic kidney disease, unspecified; N40.0 Benign prostatic hyperplasia without lower urinary tract symptoms; F32.9 Major depressive disorder, single episode, unspecified; K21.9 Gastro-esophageal reflux disease without esophagitis; E11.42 Type 2 diabetes mellitus with diabetic polyneuropathy; E87.70 Fluid overload, unspecified; D63.8 Anemia in other chronic diseases classified elsewhere; I27.20 Pulmonary hypertension, unspecified; Z66 Do not resuscitate; I25.5 Ischemic cardiomyopathy; S71.102A Unspecified open wound, left thigh, initial encounter; B96.5 Pseudomonas (aeruginosa) (mallei) (pseudomallei) as the cause of diseases classified elsewhere; K43.9 Ventral hernia without obstruction or gangrene; R31.9 Hematuria, unspecified; L27.0 Generalized skin eruption due to drugs and medicaments taken internally; F41.9 Anxiety disorder, unspecified; Z20.822 Contact with and (suspected) exposure to COVID-19; R53.81 Other malaise; S70.11XA Contusion of right thigh, initial encounter; Z79.4 Long term (current) use of insulin; Z99.81 Dependence on supplemental oxygen; Z86.16 Personal history of COVID-19; Z86.711 Personal history of pulmonary embolism; Z88.2 Allergy status to sulfonamides; Z87.891 Personal history of nicotine dependence; Z88.8 Allergy status to other drugs, medicaments and biological substances; Z83.3 Family history of diabetes mellitus; Z82.49 Family history of ischemic heart disease and other diseases of the circulatory system; X58.XXXA Exposure to other specified factors, initial encounter; Y93.89 Activity, other specified; Y92.89 Other specified places as the place of occurrence of the external cause; Y99.8 Other external cause status; Z79.01 Long term (current) use of anticoagulants
CPT/HCPCS: 10879